=== PATIENT | male | born 1980 ===

== ENCOUNTER 2018-01-22 15:17 | Inpatient (IN) | payer SELFPAY ==
[2018-01-22] MEDS ORDERED: Naloxone HCl 0.4 mg/ml Vial ONE (15:35)
[2018-01-22] MEDS ORDERED: Succinylcholine Chloride 20 MG/ML 10 ml SYRINGE FS ONE (15:39)
[2018-01-22] MEDS ORDERED: Piperacillin/Tazobactam 4.5 GM VIAL ONE (15:59)
[2018-01-22 16:04] LABS: Base Excess-Venous -9.9 mmol/L (0 (+/- 2.5)); Bicarbonate (HCO3v) 15.7 mmol/L (1.0-85.0); CO2 Tension (PvCO2) 32.7 mmHg (41.0-51.0); Calcium, Ionized 1.02 mmol/L (1.12-1.32); Hemoglobin - Calc 10.3 g/dL (12.0-18.0); O2 Tension (PvO2) 96.4 mmHg (35.0-45.0); Potassium 3.2 mmol/L (3.4-4.7); T. Carbon Dioxide 16.7 mmol/L (1.0-85.0); pH (Venous) 7.289 (7.35-7.45); vO2 Saturation-calc 96.7 % (94-98)
[2018-01-22 16:17] LABS: Actual Bicarbonate (HCO3a) 14.3 mEq/L (22-28); Analyzer IN Cardio ER; CO2 Tension 30.3 mmHg (35.0-45.0); Calcium, Ionized 1.03 mmol/L (1.12-1.30); Carboxyhemoglobin (COHb) 6.2 gm% (0.0-3.0); Hemoglobin (Hb) 10.1 g/dL (14.0-18.0); Potassium - ABG Lab 3.72 mmol/L (3.70-5.30); pH, Arterial 7.29 (7.35-7.45)
[2018-01-22 16:18] LABS: O2 Tension (PaO2) 502.3 mmHg (80.0-100.0)
[2018-01-22 16:18] LABS: INR-International Normal Ratio 1.4; PTT 40.1 SEC (22.9-36.1); Prothrombin Time 17.3 SEC (12.0-14.7)
[2018-01-22 16:19] LABS: #Eosinphils 0.2 thou/uL (0.0-0.7); #Lymphocytes 0.8 thou/uL (1.20-3.40); #Monocytes 0.4 thou/uL (0.11-0.59); #Neutrophils 9.4 thou/uL (1.40-6.50); %Basophils 0.3 % (0.0-1.0); %Eosinophils 1.7 % (0.0-10.0); %Lymphocytes 7.7 % (21.0-51.0); %Monocytes 3.3 % (0.0-10.0); Hemoglobin 9.4 g/dL (14.0-18.0); Mean Corpuscular HGB CONC 28.9 g/dL (32.0-36.0); Mean Corpuscular Hemoglobin 23.3 pg (27.0-31.0); Mean Corpuscular Volume 80.4 fL (78.0-98.0); Mean Platelet Volume 7.1 fL (7.4-10.4); Platelet Count 392 thou/uL (130-400); RBC Distribution Width 16.6 % (11.5-14.5); Red Blood Cell (RBC) Count 4.05 mill/uL (4.70-6.10); White Blood Cell (WBC) Count 10.8 thou/uL (4.8-10.8)
[2018-01-22 16:19] LABS: ALV-art Gradient -183.675 (0-20); Puncture Site LR
--- NOTE | 2018-01-22 16:22 | RAD ---
PORTABLE CHEST: Date: 01/22/18 PROVIDED CLINICAL HISTORY: Altered mental status. FINDINGS: No comparisons. Cardiac and mediastinal silhouette is within normal limits. Endotracheal tube is noted, tip of which projects in the region of the thoracic inlet. Enteric catheter is present, the tip of which is below the diaphragm. No focal consolidation is evident. The supine nature of the study limits sensitivity f or detection of pleural fluid and pneumothorax without evidence for such. IMPRESSION: No evidence for an acute cardiopulmonary process. POS: [facility]
[2018-01-22 16:24] LABS: Acetaminophen Less than 6.0 mcg/mL (10.0-30.0); Alcohol Less than 10 mg/dL (Less than 10); Magnesium 1.3 mg/dL (1.6-2.6); Phosphorus 4.7 mg/dL (2.3-4.7); Salicylate Less than 8.0 mg/dL (15.0-30.0)
[2018-01-22 16:25] LABS: Anion Gap 13 mmol/L (10-20); BUN (Urea Nitrogen) 43 mg/dL (8.9-20.6); Calc. Creatinine Clearance 0 mL/min (70-130); Carbon Dioxide 15 mmol/L (22-29); Chloride 109 mmol/L (98-107); Estimated GFR-MDRD 22; Potassium 3.5 mmol/L (3.5-5.1); Sodium 133 mmol/L (136-145)
[2018-01-22 16:26] LABS: ALT (SGPT) 18 U/L (8-55); AST (SGOT) 23 U/L (5-34); Albumin 2.3 g/dL (3.5-5.0); Alkaline Phosphatase 79 U/L (40-150); Bilirubin, Total 0.4 mg/dL (0.2-1.2); Globulin 2.4 g/dL (2.4-3.5); Glucose 127 mg/dL (70-105); Lipase 6 U/L (8-78); Protein, Total 4.7 g/dL (6.0-8.3)
[2018-01-22] MEDS ORDERED: fentaNYL Citrate/PF 2,000 MCG in Sodium Chloride 0.9% 60 ML IV SCH ×2 (16:27→18:26)
[2018-01-22 16:29] LABS: Troponin I Less than 0.010 ng/mL (< 0.028)
[2018-01-22 16:31] LABS: CKMB 20.5 ng/mL (0-6.6)
[2018-01-22] MEDS ORDERED: Midazolam HCl 5 mg/ml Vial ONE (16:33)
[2018-01-22] MEDS ORDERED: Fentanyl 100 MCG/2 ML VIAL ONE (16:36)
[2018-01-22 16:37] LABS: Anisocytosis SLIGHT = 6-15 cells (100X) (0-5/hpf); Burr Cells SLIGHT = 2-5 cells (100X) (0-1/hpf); Hypochromia SLIGHT = 6-15 cells (100X) (0-5/hpf); MDiff Complete? YES; Ovalocytes SLIGHT = 2-5 cells (100X) (0-1/hpf); PLT Morphology Comment Appears Adequate; Poikilocytosis SLIGHT = 6-15 cells (100X) (0-5/hpf); Polychromasia SLIGHT = 2-3 cells (100X) (0-2/hpf); Schistocytes SLIGHT = 2-5 cells (100X) (0-1/hpf)
[2018-01-22] MEDS ORDERED: Vancomycin HCl 1 GM in Premix Bag 1 BAG IVPB SCH (16:45)
[2018-01-22 17:00] LABS: Bilirubin Negative (Negative); Blood, Urine Moderate (Negative); Clarity TURBID (Clear); Glucose, Urine (Dipstick) Negative (Negative); Leukocyte Large (Negative); Nitrite Positive (Negative); Protein, Urine (Dipstick) 300 mg/dL (Neg-Trace); Specific Gravity, Urine 1.016 (1.002-1.036); Urobilinogen 0.2 mg/dL (0.2-1.0)
[2018-01-22 17:02] LABS: Bacteria/HPF 3+ HPF (None Seen); Squamous Epithelial 0-3 HPF (0-3)
[2018-01-22 17:07] LABS: Pathc Cast-AUWi Flag 16.45 (0-2.49); Yeast-AUWi Flag 135.9 (0-25.0)
[2018-01-22 17:10] LABS: Amphetamine Not Detected (NotDetected); Barbiturates Screen Not Detected (NotDetected); Benzodiazepine Screen Not Detected (NotDetected); Cocaine Metabolite Screen Not Detected (NotDetected); Medtox Control Line Valid? VALID (VALID); Medtox Reader # READER 4; Methadone Not Detected (NotDetected); Methamphetamine Not Detected (NotDetected); Opiate Screen Not Detected (NotDetected); Oxycodone Screen Not Detected (NotDetected); Phencyclidine (PCP) Not Detected (NotDetected); THC/Cannabinoid Screen Detected (NotDetected); Tricyclic Screen Not Detected (NotDetected)
[2018-01-22 17:18] LABS: Hyaline Casts/LPF 0-3 HYALINE CAST LPF (0-3 Hyaline); Other Casts/LPF None Seen LPF (0-3 Hyaline)
[2018-01-22] MEDS ORDERED: Atropine Sulfate 1 mg/10 ml Syringe ONE (18:00)
[2018-01-22] MEDS ORDERED: EPINEPHrine 1 MG/10 ML Abboject SYRINGE ONE ×2 (18:00→19:51)
[2018-01-22] MEDS ORDERED: Dextrose 50% Abboject 50 ML SYRINGE ONE (18:00)
[2018-01-22] MEDS ORDERED: CCU Electrolyte Replacement 1 EACH IVPB SCH (18:15)
[2018-01-22] MEDS ORDERED: Sodium Chloride 0.9% 1,000 ML IV SCH ×2 (18:15→21:00)
[2018-01-22] MEDS ORDERED: Norepinephrine 8 MG/0.9% NS 250 ML IVPB PRN (18:15)
[2018-01-22] MEDS ORDERED: Ventilator Sedation Protocol 1 EACH FS SCH (18:15)
[2018-01-22] MEDS ORDERED: CCU Electrolyte Replacement 1 EACH FS SCH (18:15)
[2018-01-22] MEDS ORDERED: Propofol 1,000 MG/100 ML VIAL IV PRN (18:26)
[2018-01-22] MEDS ORDERED: Magnesium 2 GM/NS 0.9% 100 ML 2 GM in Premix Bag 1 BAG IVPB PRN (18:26)
[2018-01-22] MEDS ORDERED: Potassium Chloride 40 MEQ in Sodium Chloride 0.9% 250 ML 250 ML IVPB PRN (18:26)
[2018-01-22] MEDS ORDERED: DISCONTINUE PREVIOUS NARCOTIC PAIN MEDICATIONS AND BENZODIAZEPINES FS SCH (18:26)
[2018-01-22] MEDS ORDERED: Potassium Phosphate 15 MMOL in Sodium Chloride 0.9% 250 ML 250 ML IV PRN (18:26)
[2018-01-22] MEDS ORDERED: Propofol BOLUS 1,000 MG/100 ML VIAL IV PRN (18:26)
[2018-01-22] MEDS ORDERED: Magnesium Oxide 400 MG TAB PO PRN ×2 (18:26)
[2018-01-22] MEDS ORDERED: Lorazepam 2 MG/ML VIAL SLOW IVP PRN (18:26)
[2018-01-22] MEDS ORDERED: Potassium Chloride 40 MEQ in Premix Bag 1 BAG IVPB PRN (18:26)
[2018-01-22] MEDS ORDERED: Fentanyl BOLUS 250 ML IVPB PRN (18:26)
[2018-01-22] MEDS ORDERED: Potassium Phosphate 9 MMOL in Sodium Chloride 0.9% 100 ML IVPB PRN (18:26)
[2018-01-22] MEDS ORDERED: Potassium Chloride 20 MEQ TAB PO PRN (18:26)
[2018-01-22] MEDS ORDERED: CCU ELECTROLYTE REPLACEMENT PROTOCOL FS PRN (18:26)
[2018-01-22] MEDS ORDERED: Potassium Phosphate 12 MMOL in Sodium Chloride 0.9% 250 ML 250 ML IV PRN (18:26)
--- NOTE | 2018-01-22 18:34 | PDOC.FPRHP ---
- History of Present Illness Chief Complaint: altered mental status History of Present Illness: 37 y/o male with h/o paraplegia and mutliple decubitus ulcers, from [place] and recently left AMA from a hospital in [place] after a reported six week stay, had EMS called and refused to go to hospital earlier today, then became altered and EMS was called a second time and brought him. In the ED he was nonresponsive, bradycardic, hypotensive, and decubitus ulcers with maggots were noted along his ischial tuberosities and posterior heel. He was given atropine and epinephrine and intubated. A FC was placed and dillan pus was noted. We were subsequently called he was bradycardic to 30 and hypotensive. A CVC was placed in the right IJ. Atropine was given with no response. Epi was give with good response. He was subsequently stabilized on an epi drip and admitted to the ICU after imaging. The family has been briefly updated and wish him to be full code. History is limited due to his intubation and encephalopathy. - Allergies/Adverse Reactions Allergies Allergy/AdvReac Type Severity Reaction Status Date / Time No Known Drug Allergies Allergy Verified 01/22/18 16:26 - Home Medications Medication Instructions Recorded Confirmed Type Unobtainable 01/22/18 01/22/18 History - History PMHx: h/o Guillian Rice syndrome; p-c malnutrition, otherwise unknown PSHx: colostomy, otherwise unable to obtain FHx: unable to obtain Social: unable to obtain - Vital signs BP: 139/105 HR: 73 RR: 16 Tmax: on chay hugger Pox: 100% Wt: 63 kg - Physical Exam Constitutional: other (intubated and sedated) HEENT: normocephalic and atraumatic Neck: trachea midline, no JVD, no thyromegaly Chest: no-tender to palpation, no lesions Heart: other (anastasiia upon review) Lungs: CTAB, good air movement, no wheezing Abdomen: soft, non-tender, other (colostomy with liquid stool) Musculoskeletal: other (malnourised) Neurological: other (unable to assess d/t above) Skin: other (stage IV sacral decubs to bone with maggots bilateral buttocs, stage III over heel) Heme/Lymphatic: no unusual bruising or bleeding, no purpura, no petechia Psychiatric: other (intubated and sedated) FMR H&P: Results - Labs Result Diagrams: 01/22/18 15:44 01/22/18 15:44 Lab results: WBC 10.8 thou/uL (4.8-10.8) 01/22/18 15:44 Hgb 9.4 g/dL (14.0-18.0) L 01/22/18 15:44 Hct 32.5 % (42.0-52.0) L 01/22/18 15:44 MCV 80.4 fL (78.0-98.0) 01/22/18 15:44 Plt Count 392 thou/uL (130-400) 01/22/18 15:44 Neutrophils % 87.0 % (42.0-75.0) H 01/22/18 15:44 ABG pH 7.29 (7.35-7.45) L 01/22/18 16:15 ABG pCO2 30.3 mmHg (35.0-45.0) L 01/22/18 16:15 ABG pO2 502.3 mmHg (80.0-100.0) H* 01/22/18 16:15 VBG pCO2 32.7 mmHg (41.0-51.0) L 01/22/18 15:47 VBG pO2 96.4 mmHg (35.0-45.0) H 01/22/18 15:47 Sodium 133 mmol/L (136-145) L 01/22/18 15:44 Potassium 3.5 mmol/L (3.5-5.1) 01/22/18 15:44 Chloride 109 mmol/L (98-107) H 01/22/18 15:44 Carbon Dioxide 15 mmol/L (22-29) L 01/22/18 15:44 BUN 43 mg/dL (8.9-20.6) H 01/22/18 15:44 Creatinine 3.12 mg/dL (0.6-1.3) H 01/22/18 15:44 Glucose 127 mg/dL (70-105) H 01/22/18 15:44 Lactic Acid 0.7 mmol/L (0.5-2.2) 01/22/18 15:44 Calcium 7.0 mg/dL (7.8-10.44) L 01/22/18 15:44 Total Bilirubin 0.4 mg/dL (0.2-1.2) 01/22/18 15:44 AST 23 U/L (5-34) 01/22/18 15:44 ALT 18 U/L (8-55) 01/22/18 15:44 Alkaline Phosphatase 79 U/L (40-150) 01/22/18 15:44 CK-MB (CK-2) 20.5 ng/mL (0-6.6) H* 01/22/18 15:44 Serum Total Protein 4.7 g/dL (6.0-8.3) L 01/22/18 15:44 Albumin 2.3 g/dL (3.5-5.0) L 01/22/18 15:44 Lipase 6 U/L (8-78) L 01/22/18 15:44 Urine Ketones Negative mg/dL (Negative) 01/22/18 16:52 Urine Blood Moderate (Negative) H 01/22/18 16:52 Urine Nitrite Positive (Negative) H 01/22/18 16:52 Ur Leukocyte Esterase Large (Negative) H 01/22/18 16:52 Urine RBC 7-10 HPF (0-3) H 01/22/18 16:52 Urine WBC Greater Than 50-TNTC HPF (0-3) H 01/22/18 16:52 Ur Squamous Epith Cells 0-3 HPF (0-3) 01/22/18 16:52 Urine Bacteria 3+ HPF (None Seen) H 01/22/18 16:52 - Radiology Interpretation Other Additional comment: CT of head reviewed by me: no acute intracranial process Abd/pelvis CT reviewed by me: obvious sacral wounds with evidence of bony involvement suspicious for osteomyelitis. No sig free air. Formal read pending. FMR H&P: A/P - Problem List (1) History of Guillain-Rice syndrome Current Visit: Yes Status: Acute Code(s): Z86.69 - PERSONAL HISTORY OF DIS OF THE NERVOUS SYS AND SENSE ORGANS (2) Paraplegia Current Visit: Yes Status: Acute Code(s): G82.20 - PARAPLEGIA, UNSPECIFIED (3) Anemia Current Visit: Yes Status: Acute Code(s): D64.9 - ANEMIA, UNSPECIFIED (4) Complicated urinary tract infection Current Visit: Yes Status: Acute Code(s): N39.0 - URINARY TRACT INFECTION, SITE NOT SPECIFIED (5) Colostomy in place Current Visit: Yes Status: Acute Code(s): Z93.3 - COLOSTOMY STATUS (6) Acute encephalopathy Current Visit: Yes Status: Acute Code(s): G93.40 - ENCEPHALOPATHY, UNSPECIFIED (7) Acute respiratory failure with hypoxia Current Visit: Yes Status: Acute Code(s): J96.01 - ACUTE RESPIRATORY FAILURE WITH HYPOXIA (8) Decubitus ulcer, stage 3 Current Visit: Yes Status: Acute Code(s): L89.93 - PRESSURE ULCER OF UNSPECIFIED SITE, STAGE 3 (9) Stage IV decubitus ulcer Current Visit: Yes Status: Acute Code(s): L89.94 - PRESSURE ULCER OF UNSPECIFIED SITE, STAGE 4 (10) Hypomagnesemia Current Visit: Yes Status: Acute Code(s): E83.42 - HYPOMAGNESEMIA (11) Acute kidney injury Current Visit: Yes Status: Acute Code(s): N17.9 - ACUTE KIDNEY FAILURE, UNSPECIFIED (12) Hyponatremia Current Visit: Yes Status: Acute Code(s): E87.1 - HYPO-OSMOLALITY AND HYPONATREMIA (13) Severe protein-calorie malnutrition Current Visit: Yes Status: Acute Code(s): E43 - UNSPECIFIED SEVERE PROTEIN- CALORIE MALNUTRITION (14) Septic shock Current Visit: Yes Status: Acute Code(s): A41.9 - SEPSIS, UNSPECIFIED ORGANISM; R65.21 - SEVERE SEPSIS WITH SEPTIC SHOCK - Plan Patient with septic shock 2/2 suspected complicated UTI vs infected decubitus ulcers -EGDT, 2 L LR, vanc/zosyn, BC drawn -on epi gtt and stable -pulm consulted -wound care consulted Neuro -vent sedation protocol -daily sedation vacations Resp -lung protective ventilation CV -continue epi gtt, wean levo as able for maps >65 -ICU consulted and will come this evening -if recurrent bradycardia after resuscitation will d/w cardiology FEN/GI -hold on feeds -correct and recheck electrolyte abn (mg, phos) -monitor Na Renal/ -monitor creatinine, no indication for dialysis -avoid nephrotox meds if able -renally dose meds Heme -anemia, will hold on workup as by history strongly suspect ACD ID -vanc/zosyn, renally dose as appropriate, cultures as above Lines -Right IJ CVC placed in sterile fashion in ED -PIV x 2 -FC -ETT Social -I will update family and likely discuss with palliative -dvt/gi ppx -begin feeds in AM, sooner if proves stability, monitor for refeeding syndrome Approximately 75 min of critical care time, excluding procedure FMR H&P: Upper Level - Plan Date/Time: 01/22/18 1830 I, [], have evaluated this patient and agree with findings/plan as outlined by sports internship resident. Pertinent changes/additions are listed here.
[2018-01-22 18:59] LABS: Hemoglobin 10.3 g/dL (14.0-18.0); Mean Corpuscular HGB CONC 30.4 g/dL (32.0-36.0); Mean Corpuscular Hemoglobin 24.1 pg (27.0-31.0); Mean Corpuscular Volume 79.2 fL (78.0-98.0); Mean Platelet Volume 7.1 fL (7.4-10.4); Platelet Count 394 thou/uL (130-400); RBC Distribution Width 16.6 % (11.5-14.5); Red Blood Cell (RBC) Count 4.27 mill/uL (4.70-6.10); White Blood Cell (WBC) Count 13.8 thou/uL (4.8-10.8)
[2018-01-22] MEDS: Lactated Ringer's 1,000 ML IV SCH ×2 (19:08→19:09)
--- NOTE | 2018-01-22 19:12 | RAD ---
CHEST ONE VIEW: 01/22/18 HISTORY: Central line placement. COMPARISON: Earlier exam on the same date. FINDINGS: Tip of a right internal jugular central venous catheter overlies the superior vena cava. Other lines and tubes are unchanged in position. Pulmonary vasculature is slightly more engorged. No evidence of pneumothorax. IMPRESSION: Internal jugular catheter is in good radiographic position. Increasing pulmonary vascular congestion. POS: [facility]
[2018-01-22 19:19] LABS: Acanthocytes SLIGHT = 1-5 cells (100X) (None Seen); Anisocytosis SLIGHT = 6-15 cells (100X) (0-5/hpf); Band 40 % (5-11); Burr Cells SLIGHT = 2-5 cells (100X) (0-1/hpf); Eosinophils 1 % (0-10); Hypochromia SLIGHT = 6-15 cells (100X) (0-5/hpf); Lymphocytes 6 % (21-51); MDiff Complete? YES; Metamyelocyte 3 % (0-0); Monocytes 4 % (0-10); Neutrophil 45 % (42-75); PLT Morphology Comment Appears Adequate; Poikilocytosis SLIGHT = 6-15 cells (100X) (0-5/hpf); Polychromasia SLIGHT = 2-3 cells (100X) (0-2/hpf); Toxic Granulation SLIGHT
[2018-01-22 19:23] LABS: ALT (SGPT) 38 U/L (8-55); AST (SGOT) 56 U/L (5-34); Albumin 2.4 g/dL (3.5-5.0); Alkaline Phosphatase 85 U/L (40-150); Anion Gap 14 mmol/L (10-20); BUN (Urea Nitrogen) 39 mg/dL (8.9-20.6); Bilirubin, Total 0.9 mg/dL (0.2-1.2); Calc. Creatinine Clearance 0 mL/min (70-130); Calcium 7.8 mg/dL (7.8-10.44); Carbon Dioxide 17 mmol/L (22-29); Chloride 107 mmol/L (98-107); Estimated GFR-MDRD 26; Globulin 3.1 g/dL (2.4-3.5); Glucose 214 mg/dL (70-105); Potassium 3.1 mmol/L (3.5-5.1); Protein, Total 5.5 g/dL (6.0-8.3); Sodium 135 mmol/L (136-145)
--- NOTE | 2018-01-22 19:25 | CT ---
CT HEAD NONCONTRAST: 01/22/18 HISTORY: Altered mental status. FINDINGS: No comparison. There is no evidence of acute intracranial hemorrhage or infarct. Ventricles appear normal in size, s hape and position. There is no mass effect or shift of midline structures. The visualized paranasal s inuses remain well aerated. No acute intracranial abnormalities are demonstrated. POS: [facility]
--- NOTE | 2018-01-22 19:28 | PDOC.EVN ---
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 She states he has been hospitalized for >6 weeks in at least 3 hospital for treatment of his wounds. He had the colostomy tube placed because he was having diarrhea which affected the wounds. Patient left AMA from [place] a few weeks ago because he was "tired of being in the hospital." Mother states she thinks patient may be getting tired of spending so much time in the hospitals and may elect for comfort cares as opposed to aggressive measures. Patient has been his own MPOA mother states. They have not had discussions about code status. Patient is FULL code. Palliative care team is consulted to assist with ascertaining goals of care, if all goes well anticipate vent may be weaned tomorrow and goals of care can be discussed with patient. <Fidel Manuel - Last Filed: 01/22/18 19:24> Attending Addendum - Attending Addendum Date/Time: 01/22/182032 I was present for the family discussion. <Darrell Burton - Last Filed: 01/22/18 20:33>
--- NOTE | 2018-01-22 19:31 | CT ---
CT ABDOMEN AND PELVIS NONCONTRAST: 01/22/18 HISTORY: Flank pain. FINDINGS: Very mild distention of each renal collecting system and ureter without stone evident. Urinary bladde r contains a Nolan catheter but is incompletely decompressed. Lack of contrast limits evaluation for other abnormalities. Atelectasis at each lung base. Nasogastri c tube within the stomach. Left lower quadrant ostomy. Minimal free fluid in the abdomen. Dystrophic calcifications at each medial gluteal level. IMPRESSION: Very mild bilateral hydroureteronephrosis without obstructing cause evident. This may be related to c hronic reflux. No stones are visible. Nolan catheter in place without complete decompression of the urinary bladder. POS: [facility]
[2018-01-22] MEDS: Famotidine/PF 20 mg/2ml Vial SLOW IVP SCH (20:23)
[2018-01-22] MEDS ORDERED: Calcium Gluc 4.6 MEQ/10 ML (100 MG/ML) SLOW IVP SCH (20:30)
[2018-01-22] MEDS ORDERED: Heparin 10,000 UNITS/ 10 ML VIAL ONE (20:55)
[2018-01-22] MEDS ORDERED: Magnesium Sulfate 4 GM in Sodium Chloride 0.9% 250 ML 250 ML IVPB SCH (21:00)
[2018-01-22] MEDS ORDERED: Potassium Chloride 40 MEQ in Premix Bag 1 BAG IVPB SCH (21:00)
[2018-01-22] MEDS: Piperacillin/Tazobactam 3.375 GM in Sodium Chloride 0.9% 100 ML IVPB SCH (23:47)
--- NOTE | 2018-01-23 00:07 | CON ---
DATE OF CONSULTATION: 01/22/2018 SERVICE: Pulmonary Medicine. REASON FOR CONSULTATION: Septic shock. HISTORY OF PRESENT ILLNESS: Patient is a 37-year-old white male with past medical history significan t for horrendous protein-calorie malnutrition, and debility. He is bedbound because of a GBS. He ne mani got recovery of his lower extremities. Apparently, he spends all of his time in bed. He has sac ral decubitus ulcer down to the bone. This was present on admission. Ultimately, he has had multipl e 6+ week hospital stays in three different facilities. This is all associated with complications of being in his current condition. On this occasion, he was noted to be increasingly confused. He was brought to the emergency department by his family members. The Nolan catheter was exchanged. A fra nk pus drained out of the Nolan catheter. The patient appeared to have some difficulty with breathin g. As such, he was intubated. Shortly following intubation, he had some bradyarrhythmia events. He was put on epinephrine, and a little bit of Levophed. Since then, has been perfectly stable. He ca n provide any additional elements of the history because he is requiring mechanical ventilation and g entle sedation in order to remain comfortable. PAST MEDICAL HISTORY: 1. Guillain-Zanoni syndrome with hemiplegia/paresis. 2. Protein-calorie malnutrition, severe. PAST SURGICAL HISTORY: Colostomy. FAMILY HISTORY: Unknown. SOCIAL HISTORY: Unknown. ALLERGIES: No known drug allergies. MEDICATIONS: List of his inpatient medications were reviewed. Multiple updates were made. REVIEW OF SYSTEMS: This cannot be obtained, as the patient is currently intubated and sedated. PHYSICAL EXAMINATION: VITAL SIGNS: Afebrile, pulse 72, blood pressure 130/95, respirations 20, saturation 100% on 21% FiO2 and a PEEP of 5. GENERAL: Patient is intubated and sedated. HEENT: Normocephalic, atraumatic. Sclerae white, conjunctivae pink. Oral and nasal mucosa is moist without lesions. LUNGS: Excellent air entry. There is no prolonged expiratory phase, wheezing, rhonchi, or crackles present. HEART: Normal rate, regular. ABDOMEN: Soft. No tenderness to palpation. There are bowel sounds, which are hypoactive. There is no rebound or guarding noted. GENITOURINARY: Nolan catheter in place. MUSCULOSKELETAL: No cyanosis or clubbing. EXTREMITIES: He has no pitting in the bilateral lower extremities. LABORATORY DATA: WBC 13.8 and up trending, hemoglobin 10.3, platelets 394,000. Band count is 40% on top of 45% neutrophils. INR 1.4. PH 7.29, pCO2 of 30, pO2 of 502. He was on 50% FiO2 at that time . Creatinine 2.73 and down trending, BUN 39, bicarbonate 17 and improving, potassium 3.1, sodium 135 . Ionized calcium 1.02, magnesium 1.3, phosphorus 4.7. Liver function studies are essentially unrem arkable except for an albumin of 2.2. Troponin is negative x1. Urinalysis is consistent with dillan pyuria. Urine drug screen is positive for cannabinoids, but otherwise unremarkable. Alcohol, acetam inophen, and salicylate are also negative. IMAGIN. Chest x-ray demonstrates right-sided IJ central venous catheter is in good position radiographica lly. Pulmonary vascular congestion is noted. 2. CT of the brain demonstrates no acute intracranial abnormality. 3. CT of the abdomen and pelvis is little limited, because there is no contrast. There is atelectas is and minimal bilateral pleural effusions in the bibasilar region. Minimal hydronephrosis is noted without any air. This is bilateral and no obstruction is evident. Nolan catheter is in place, but t here is not a complete decompression of the urinary bladder at this time. ASSESSMENT: 1. Septic shock. 2. Urinary tract infection. 3. Stage 4 decubitus ulcer, present on admission. 4. Acute kidney injury. 5. Hypomagnesemia. 6. Hypocalcemia. 7. Hypokalemia. DISCUSSION AND PLAN: We will continue empiric antibiotics including vancomycin, Zosyn, covering both skin, and curt. Potassium, calcium, and magnesium will be replaced. We will titrate away the p ressors if tolerated in order to maintain a blood pressure at MAP of 65. It appears that his kidney injury is improving dramatically. He has fantastic urine output at this point, there is no evidence of any end-organ damage except for his altered mentation. He has been in three separate hospitals an d his mom is telling us that he would prefer to be passing on at this time. That being said, he is q uite young and otherwise healthy. We hope to turn the sepsis profile around very quickly. Hopefully , we will be able to have a good conversation with patient about what his goals of care of moving for oseguera. In doing so, we will have to verify that he does not suffer with a severe depression. CRITICAL CARE TIME: 30 minutes.
[2018-01-23 03:47] LABS: Band 47 % (5-11); Eosinophils 3 % (0-10); Hemoglobin 9.6 g/dL (14.0-18.0); Lymphocytes 7 % (21-51); MDiff Complete? YES; Mean Corpuscular HGB CONC 30.4 g/dL (32.0-36.0); Neutrophil 43 % (42-75); PLT Morphology Comment Appears Increased; Platelet Count 510 thou/uL (130-400); RBC Distribution Width 16.5 % (11.5-14.5); Red Blood Cell (RBC) Count 4.01 mill/uL (4.70-6.10); White Blood Cell (WBC) Count 13.4 thou/uL (4.8-10.8)
[2018-01-23 04:03] LABS: ALT (SGPT) 41 U/L (8-55); AST (SGOT) 40 U/L (5-34); Albumin 2.4 g/dL (3.5-5.0); Alkaline Phosphatase 83 U/L (40-150); Anion Gap 12 mmol/L (10-20); BUN (Urea Nitrogen) 33 mg/dL (8.9-20.6); Bilirubin, Total 0.2 mg/dL (0.2-1.2); Calc. Creatinine Clearance 50 mL/min (70-130); Calcium 8.9 mg/dL (7.8-10.44); Carbon Dioxide 21 mmol/L (22-29); Chloride 112 mmol/L (98-107); Estimated GFR-MDRD 41; Globulin 3.1 g/dL (2.4-3.5); Glucose 85 mg/dL (70-105); Potassium 4.2 mmol/L (3.5-5.1); Protein, Total 5.5 g/dL (6.0-8.3); Sodium 141 mmol/L (136-145)
[2018-01-23] MEDS ORDERED: Vancomycin HCl 1 GM in Premix Bag 1 BAG IVPB SCH (05:00)
[2018-01-23] MEDS: Piperacillin/Tazobactam 3.375 GM in Sodium Chloride 0.9% 100 ML IVPB SCH ×3 (05:04→17:09)
--- NOTE | 2018-01-23 08:51 | PDOC.OP ---
Operative Note - Operative Note Operative Note: INDICATION: septic shock PROCEDURE PLANT OPERATIONS WORKER: Fidel Manuel MD ATTENDING PHYSICIAN: Darrell Burton In Attendance for entirety of procedure CONSENT: Emergent Consent. PROCEDURE SUMMARY: . A time out was performed. My hands were washed immediately prior to the procedure. I wore a surgical cap, mask with protective eyewear, full gown and sterile gloves throughout the procedure. RIGHT chest region was prepped using chlorhexidine scrub and draped in sterile fashion using a three quarter sheet drape. The medial and lateral heads of the sternocleidomastoid muscle were identified as was the carotid pulse. The Internal Jugular vein was identified using the ultrasound. Anesthesia was achieved over the vein using 1% lidocaine. Using real-time out of plane guidance, the introducer needle was inserted into the Internal Jugular vein under direct ultrasound visualization. Venous blood was withdrawn. The syringe was removed and a guidewire was advanced into the introducer needle. The guidewire was visualized in the Internal Jugular Vein by ultrasound. A small incision was made at the skin surface with a scalpel and the introducer needle was exchanged for a dilator over the guidewire. After appropriate dilation was obtained, the dilator was exchanged over the wire for a triple lumen central venous catheter. The wire was removed and the catheter was sutured in place at 14 cm. A sterile sorbaview shield was placed over the catheter at the insertion site. The patient tolerated the procedure without any hemodynamic compromise. At time of procedure completion, all ports aspirated and flushed properly. Post-procedure chest x-ray is showed proper placement. Estimated blood loss is 10ml. <Fidel Manuel - Last Filed: 01/23/18 08:49> Attending Addendum - Attending Addendum Date/Time: 01/23/18 1418 I was present for the entirety of the procedure <Darrell Burton - Last Filed: 01/23/18 14:18>
[2018-01-23] MEDS: Vancomycin HCl 1 GM in Premix Bag 1 BAG IVPB SCH ×2 (09:04→20:37)
[2018-01-23 09:38] LABS: Magnesium 2.5 mg/dL (1.6-2.6); Phosphorus 4.7 mg/dL (2.3-4.7)
--- NOTE | 2018-01-23 09:41 | PDOC.FM ---
- Subjective Subjective: Pt remains on sedation and ventilator support this AM. He is also requiring pressor support. Pt family in the room this am state he has been hospitalized numerous times for similar symptoms. He has left AMA from his previous hospitalization in [place] approx 3 weeks ago. The family is from [place]; however, pt has a child down in [place] and he decided to leave town without informing his family and see his child. - Objective Vital Signs & Weight: Vital Signs (12 hours) Temp Pulse Resp BP 01/23/18 08:00 98.8 F 13 01/23/18 07:00 98.8 F 91 114/60 01/23/18 06:00 13 01/23/18 04:00 13 01/23/18 03:00 98.0 F 01/23/18 02:00 13 01/23/18 00:00 13 01/22/18 23:00 98.1 F 01/22/18 22:00 13 Weight Weight 64.7 kg Most Recent Monitor Data Heart Rate from ECG 88 NIBP 119/67 NIBP BP-Mean 84 Respiration from ECG 21 SpO2 100 I&O: 01/22/18 01/23/18 01/24/18 06:59 06:59 06:59 Intake Total 3187 Output Total 3650 240 Balance -463 -240 Result Diagrams: 01/23/18 03:15 01/23/18 03:15 <Fantasma Rosenthal - Last Filed: 01/23/18 10:47> - Objective Vital Signs & Weight: Vital Signs (12 hours) Temp Pulse Resp BP Pulse Ox 01/23/18 10:44 93 110/65 01/23/18 08:00 98.8 F 13 100 01/23/18 07:00 98.8 F 91 114/60 01/23/18 06:00 13 01/23/18 04:00 13 01/23/18 03:00 98.0 F 01/23/18 02:00 13 01/23/18 00:00 13 Weight Admit Weight 64.7 kg Weight 64.7 kg Most Recent Monitor Data Heart Rate from ECG 93 NIBP 110/58 NIBP BP-Mean 75 Respiration from ECG 18 SpO2 100 I&O: 01/22/18 01/23/18 01/24/18 06:59 06:59 06:59 Intake Total 3187 0 Output Total 3650 350 Balance -463 -350 Result Diagrams: 01/23/18 03:15 01/23/18 03:15 <Marc Wilson - Last Filed: 01/23/18 12:01> Phys Exam - Physical Examination Sedated, on ventilator HEENT: PERRLA, sclera anicteric Neck: no nodes, no JVD Respiratory: no wheezing, no rales, no rhonchi, clear to auscultation bilateral Cardiovascular: RRR, no significant murmur, no rub Gastrointestinal: soft, non-tender, no distention, positive bowel sounds Musculoskeletal: pulses present, edema present sedated Skin: normal turgor, cap refill <2 seconds <Fantasma Rosenthal - Last Filed: 01/23/18 10:47> Dx/Plan (1) Septic shock Code(s): A41.9 - SEPSIS, UNSPECIFIED ORGANISM; R65.21 - SEVERE SEPSIS WITH SEPTIC SHOCK Status: Acute (2) Complicated urinary tract infection Code(s): N39.0 - URINARY TRACT INFECTION, SITE NOT SPECIFIED Status: Acute (3) Stage IV decubitus ulcer Code(s): L89.94 - PRESSURE ULCER OF UNSPECIFIED SITE, STAGE 4 Status: Acute (4) Acute kidney injury Code(s): N17.9 - ACUTE KIDNEY FAILURE, UNSPECIFIED Status: Acute (5) Acute respiratory failure with hypoxia Code(s): J96.01 - ACUTE RESPIRATORY FAILURE WITH HYPOXIA Status: Acute (6) Anemia Code(s): D64.9 - ANEMIA, UNSPECIFIED Status: Acute (7) History of Guillain-Lyburn syndrome Code(s): Z86.69 - PERSONAL HISTORY OF DIS OF THE NERVOUS SYS AND SENSE ORGANS Status: Acute (8) Paraplegia Code(s): G82.20 - PARAPLEGIA, UNSPECIFIED Status: Acute - Plan Plan: 1) Septic shock - pt still requiring levo gtt - wean and maintain MAP >65 - cont vanc zosyn - guillermina 2/2 UTI, cultures pending - Stage 4 sacral decub ulcers present on admission, wound care consulted 2) Complicated UTI - continue pressor support and broad sepctrum abx - cultures pending 3) Stage 4 sacral decub - wound care consulted - consider gen surg consult - discuss goals of care when pt able to wean from vent 4) KARISSA: -guillermina 2/2 septic shock vs mild urinary retention - IVF and broad spectrum ABX - monitor and trend 5) Anemia: normocytic: - guillermina 2/2 chronic disease 6) Paraplegia 2/2 gillain barre - neglected sarcral and ischial wounds - APS called from ED - cont wound care and broad spectrum ABX Dispo: Critical, still requiring pressor support and currently being weaned off mechanical ventilation. Cont CCU care. <Fantasma Rosenthal - Last Filed: 01/23/18 10:47> Attending Addendum - Attending Addendum Date/Time: 01/23/18 2959 I personally evaluated the patient and discussed the management with Dr. Rosenthal I agree with the History, Examination, Assessment and Plan documented above with any addition or exceptions noted below. Patient in critical status probable urosepsis. Daughter and Mother at Bedside aware of status and care plan. Will await for increased patient responsiveness and extubation concern he has left AMA multiple times in the past. <Marc Wilson - Last Filed: 01/23/18 12:01>
--- NOTE | 2018-01-23 15:48 | PRG ---
DATE OF SERVICE: 01/23/2018 SERVICE: Pulmonary Medicine. INTERVAL HISTORY: The patient is doing great from a respiratory standpoint. He has been weaned down to 21% FiO2 and a PEEP of 5. He is on minimal support off the ventilator. Both Levophed and epinephrine has been weaned off overnight. Otherwise, there has been no interval change to his condition. Mentation ashby, he has been off sedation for a couple of hours, but he is slow to come around. He is starting to follow some simple commands, however. PHYSICAL EXAMINATION: VITAL SIGNS: Afebrile, pulse 116, blood pressure 99/67, respirations 20, saturation 94% on 4 liters nasal cannula. GENERAL: The patient is awake, alert, no apparent distress. LUNGS: Decent air entry. There is no prolonged expiratory phase or wheezing. HEART: Normal rate, regular. ABDOMEN: Soft, nontender, nondistended. Bowel sounds are positive. MUSCULOSKELETAL: No cyanosis or clubbing. There is no pitting in the bilateral lower extremities. NEUROLOGIC: Grossly nonfocal. LABORATORY DATA: WBC 13.4, hemoglobin 9.6, platelets 510,000. Band count is 47 %. Creatinine continues to improve to 1.87, BUN 33. Basic metabolic profile is otherwise unremarkable. His sodium and chloride are trending upward. Magnesium and phosphorus fall within the normal limits. Liver function studies are essentially unremarkable. Cannabinoids are positive. Outside of that, urine drug screen is negative. Blood cultures x2 remain negative. ASSESSMENT: 1. Septic shock, resolved. 2. Urinary tract infection. 3. Stage IV decubitus ulcer, present on admission, with maggots and foul smell emanating from that area. 4. Acute kidney injury, resolving. DISCUSSION AND PLAN: We will continue our empiric antibiotics. Once the patient meets criteria, spontaneous breathing trial will be performed. If he meets criteria, extubation will be considered. I would like to have a conversation with this patient about how aggressive he would like to be moving forward. The patient's mom is telling me that at this point in his life, he would prefer to proceed with palliative care and/or hospice. That being said, if we can listen to the patient, we would prefer to get this from him. Furthermore, with his advanced debility, I would like to make certain that we identify and treat any depression prior to allowing this gentleman to come to this conclusion. Certainly getting well from this point, will require surgeries , Plastic Surgery, and Infectious Disease. Critical care time: 30 minutes. JENNIFER
[2018-01-23] MEDS: Sodium Chloride 0.45% 1,000 ML IV SCH (16:13)
[2018-01-23] MEDS ORDERED: HYDROcodone/Acetaminophen 5/325 mg Tablet PO PRN (16:23)
[2018-01-23] MEDS: Acetaminophen 325 MG TAB PO PRN (20:36)
[2018-01-23] MEDS: Famotidine/PF 20 mg/2ml Vial SLOW IVP SCH (20:37)
[2018-01-23] MEDS: Morphine 2 MG/ML SYRINGE SLOW IVP PRN (20:39)
[2018-01-24] MEDS: Piperacillin/Tazobactam 3.375 GM in Sodium Chloride 0.9% 100 ML IVPB SCH ×4 (01:18→17:49)
[2018-01-24 04:31] LABS: Anion Gap 10 mmol/L (10-20); BUN (Urea Nitrogen) 21 mg/dL (8.9-20.6); Calc. Creatinine Clearance 105 mL/min (70-130); Calcium 8.9 mg/dL (7.8-10.44); Carbon Dioxide 23 mmol/L (22-29); Chloride 112 mmol/L (98-107); Estimated GFR-MDRD Greater than 90; Glucose 73 mg/dL (70-105); Magnesium 1.9 mg/dL (1.6-2.6); Phosphorus 3.3 mg/dL (2.3-4.7); Potassium 3.5 mmol/L (3.5-5.1); Sodium 141 mmol/L (136-145)
[2018-01-24 04:35] LABS: Band 19 % (5-11); Eosinophils 10 % (0-10); Hemoglobin 8.6 g/dL (14.0-18.0); Lymphocytes 13 % (21-51); MDiff Complete? YES; Mean Corpuscular HGB CONC 30.8 g/dL (32.0-36.0); Mean Corpuscular Hemoglobin 24.3 pg (27.0-31.0); Mean Corpuscular Volume 79.1 fL (78.0-98.0); Mean Platelet Volume 7.1 fL (7.4-10.4); Monocytes 4 % (0-10); Neutrophil 53 % (42-75); PLT Morphology Comment Appears Increased; Platelet Count 439 thou/uL (130-400); RBC Distribution Width 16.5 % (11.5-14.5); RBC Morphology Normal; Red Blood Cell (RBC) Count 3.52 mill/uL (4.70-6.10); White Blood Cell (WBC) Count 12.9 thou/uL (4.8-10.8)
[2018-01-24] MEDS: Morphine 2 MG/ML SYRINGE SLOW IVP PRN (05:35)
[2018-01-24] MEDS: Acetaminophen 325 MG TAB PO PRN ×2 (05:41→21:26)
--- NOTE | 2018-01-24 07:42 | PDOC.FM ---
- Subjective Subjective: 37 yo M hospital day 3 for sepsis 2/2 UTI. Pt reports some pain in wound area, otherwise denies cp, sob, nvdc. Spoke with pt regarding code status and he wishes to be full code. He does not seem overtly depressed and reports that he wants to live as long as possible for his daughter. - Objective Vital Signs & Weight: Vital Signs (12 hours) Temp Pulse Ox 01/24/18 04:00 97.9 F 01/24/18 00:00 97.6 F 01/23/18 20:00 100 Weight Admit Weight 64.7 kg Weight 64.7 kg Most Recent Monitor Data Heart Rate from ECG 94 NIBP 115/68 NIBP BP-Mean 83 Respiration from ECG 14 SpO2 100 I&O: 01/23/18 01/24/18 01/25/18 06:59 06:59 06:59 Intake Total 3187 2274 Output Total 3650 1690 Balance -463 584 Result Diagrams: 01/24/18 03:40 01/24/18 03:30 <Fantasma Rosenthal - Last Filed: 01/24/18 07:40> - Objective Vital Signs & Weight: Vital Signs (12 hours) Temp Pulse Resp BP Pulse Ox 01/24/18 11:10 98.0 F 89 16 140/97 H 97 01/24/18 08:00 98 01/24/18 07:21 100 01/24/18 05:00 96 F L 01/24/18 04:00 97.9 F Weight Admit Weight 64.7 kg Weight 67.1 kg Most Recent Monitor Data Heart Rate from ECG 99 NIBP 123/84 NIBP BP-Mean 97 Respiration from ECG 16 SpO2 100 I&O: 01/23/18 01/24/18 01/25/18 06:59 06:59 06:59 Intake Total 3187 3904 225 Output Total 3650 1830 70 Balance -463 2074 155 Result Diagrams: 01/24/18 03:40 01/24/18 03:30 <Marc Wilson - Last Filed: 01/24/18 13:01> Phys Exam - Physical Examination Constitutional: NAD HEENT: PERRLA, moist MMs, sclera anicteric Neck: no nodes, no JVD Respiratory: no wheezing, no rales, no rhonchi, clear to auscultation bilateral Cardiovascular: RRR, no significant murmur, no rub Gastrointestinal: soft, non-tender, no distention, positive bowel sounds Musculoskeletal: pulses present, edema present paralysis from waist down Psychiatric: normal affect Deviation from normal: stage 4 sacral wound lower back <Fantasma Rosenthal - Last Filed: 01/24/18 07:40> Dx/Plan (1) Septic shock Code(s): A41.9 - SEPSIS, UNSPECIFIED ORGANISM; R65.21 - SEVERE SEPSIS WITH SEPTIC SHOCK Status: Acute (2) Complicated urinary tract infection Code(s): N39.0 - URINARY TRACT INFECTION, SITE NOT SPECIFIED Status: Acute (3) Stage IV decubitus ulcer Code(s): L89.94 - PRESSURE ULCER OF UNSPECIFIED SITE, STAGE 4 Status: Acute (4) Acute kidney injury Code(s): N17.9 - ACUTE KIDNEY FAILURE, UNSPECIFIED Status: Acute (5) Acute respiratory failure with hypoxia Code(s): J96.01 - ACUTE RESPIRATORY FAILURE WITH HYPOXIA Status: Acute (6) Anemia Code(s): D64.9 - ANEMIA, UNSPECIFIED Status: Acute (7) History of Guillain-[place] syndrome Code(s): Z86.69 - PERSONAL HISTORY OF DIS OF THE NERVOUS SYS AND SENSE ORGANS Status: Acute (8) Paraplegia Code(s): G82.20 - PARAPLEGIA, UNSPECIFIED Status: Acute - Plan Plan: 1) Septic shock, resolved - weaned off pressors. 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 Continue current abx, ok for transfer to medical floor. <Fantasma Rosenthal - Last Filed: 01/24/18 07:40> Attending Addendum - Attending Addendum Date/Time: 01/24/18 6329 I personally evaluated the patient and discussed the management with Dr. Rosenthal I agree with the History, Examination, Assessment and Plan documented above with any addition or exceptions noted below. Patient with acute delirium during rounds with visual hallucination and delusional thought process concern with PmHx mental illness will evaluate for underlying etiology. Note PMHX notable substance abuse no fever no chills. <Marc Wilson - Last Filed: 01/24/18 13:01>
[2018-01-24] MEDS: Sodium Chloride 0.45% 1,000 ML IV SCH ×2 (07:47→17:51)
[2018-01-24 08:52] LABS: Vancomycin, Trough 26.6 ug/mL
[2018-01-24] MEDS: Vancomycin HCl 1 GM in Premix Bag 1 BAG IVPB SCH ×2 (09:00→21:18)
--- NOTE | 2018-01-24 09:44 | PRG ---
DATE OF SERVICE: 01/24/2018 CHEST: Reveals decreased breath sounds without any wheezing. CARDIAC: Normal S1, S2. No gallops. ABDOMEN: Soft, no masses. IMPRESSION: Status post sepsis, urinary tract infection, stage IV decubitus, renal failure, resolvin g. PLAN: He will be transferred to an unmonitored bed. Continue PT. Continue . Continue antibiot ics.
[2018-01-24] MEDS ORDERED: Haloperidol Lactate 5 MG/ML VIAL SLOW IVP PRN (11:56)
--- NOTE | 2018-01-24 13:35 | CT ---
HEAD CT NONCONTRAST: INDICATION: Altered mental status. FINDINGS: No intracranial hemorrhage, mass effect, or midline shift. There is multifocal white matter hypoatte nuation bilaterally, which has progressed from recent exam, 01/22/2018. FINDINGS: Multifocal, progressive deep white matter hypodensities indicating areas of recent/acute ischemia. R ecommend brain MRI as followup for further evaluation. POS: [facility]
[2018-01-24] MEDS: Famotidine/PF 20 mg/2ml Vial SLOW IVP SCH (21:16)
--- NOTE | 2018-01-24 21:27 | PDOC.EVN ---
Event Note - Event Note Event Note: Pt transferred to stroke in e of recent CT brain findings. Pt in room A7 as that is currently stroke unit due to traditional unit flooding. Pt complained of pain in bilateral upper abdominal quadrants/lower chest region. Pt has encephalopathy and offered two different histories of pain when interviewed. Onset being 10am in one but later saying in the conversation that it started at 1pm. Pt reports it is severe and sharp in nature with no insighting events. No radiation to the back. no nausea/vomiting. PO toleration good with lunch and dinner. Pt paranoid speaking of the possibility of medical staff lying to him about the existence of his pain and his getting dinner. O- Pt comfortably resting, cardiopulmonary exam wnl, EKG showed NSR. On abdominal exam pt reported tendernes to palpation on bilat upper quadrants but with minimally changed affect. A/P- CMP, H/H, lipase
[2018-01-24 22:28] LABS: Hemoglobin 9.6 g/dL (14.0-18.0)
[2018-01-24 22:40] LABS: ALT (SGPT) 36 U/L (8-55); AST (SGOT) 27 U/L (5-34); Albumin 2.6 g/dL (3.5-5.0); Alkaline Phosphatase 90 U/L (40-150); Anion Gap 14 mmol/L (10-20); BUN (Urea Nitrogen) 18 mg/dL (8.9-20.6); Bilirubin, Total 0.4 mg/dL (0.2-1.2); Calc. Creatinine Clearance 109 mL/min (70-130); Calcium 8.8 mg/dL (7.8-10.44); Carbon Dioxide 19 mmol/L (22-29); Chloride 109 mmol/L (98-107); Estimated GFR-MDRD Greater than 90; Globulin 3.2 g/dL (2.4-3.5); Glucose 91 mg/dL (70-105); Lipase 5 U/L (8-78); Potassium 3.9 mmol/L (3.5-5.1); Protein, Total 5.8 g/dL (6.0-8.3); Sodium 138 mmol/L (136-145)
[2018-01-25] MEDS: Piperacillin/Tazobactam 3.375 GM in Sodium Chloride 0.9% 100 ML IVPB SCH ×5 (00:20→23:51)
[2018-01-25 05:34] LABS: Anion Gap 15 mmol/L (10-20); BUN (Urea Nitrogen) 19 mg/dL (8.9-20.6); Calc. Creatinine Clearance 112 mL/min (70-130); Calcium 8.8 mg/dL (7.8-10.44); Carbon Dioxide 19 mmol/L (22-29); Chloride 109 mmol/L (98-107); Estimated GFR-MDRD Greater than 90; Glucose 72 mg/dL (70-105); Potassium 3.9 mmol/L (3.5-5.1); Sodium 139 mmol/L (136-145)
[2018-01-25 05:39] LABS: Band 10 % (5-11); Eosinophils 2 % (0-10); Hemoglobin 9.4 g/dL (14.0-18.0); Lymphocytes 11 % (21-51); MDiff Complete? YES; Mean Corpuscular HGB CONC 30.4 g/dL (32.0-36.0); Mean Corpuscular Hemoglobin 23.9 pg (27.0-31.0); Mean Corpuscular Volume 78.8 fL (78.0-98.0); Mean Platelet Volume 7.5 fL (7.4-10.4); Metamyelocyte 1 % (0-0); Monocytes 8 % (0-10); Neutrophil 67 % (42-75); PLT Morphology Comment Appears Increased; Platelet Count 475 thou/uL (130-400); Poikilocytosis SLIGHT = 6-15 cells (100X) (0-5/hpf); RBC Distribution Width 16.7 % (11.5-14.5); RBC Morphology Normal; Reactive Lymphocytes 1 % (0-10); Red Blood Cell (RBC) Count 3.91 mill/uL (4.70-6.10); White Blood Cell (WBC) Count 12.7 thou/uL (4.8-10.8)
[2018-01-25] MEDS: Sodium Chloride 0.45% 1,000 ML IV SCH ×2 (06:24→22:18)
[2018-01-25 06:35] LABS: Bilirubin Negative (Negative); Blood, Urine Large (Negative); Clarity CLOUDY (Clear); Glucose, Urine (Dipstick) Negative (Negative); Leukocyte Moderate (Negative); Nitrite Negative (Negative); Protein, Urine (Dipstick) 100 mg/dL (Neg-Trace); Urobilinogen 0.2 mg/dL (0.2-1.0)
[2018-01-25 06:38] LABS: Bacteria/HPF None Seen HPF (None Seen); Hyaline Casts/LPF 0-3 HYALINE CAST LPF (0-3 Hyaline); Pathc Cast-AUWi Flag 0.43 (0-2.49); Squamous Epithelial None Seen HPF (0-3); Yeast-AUWi Flag 106.9 (0-25.0)
[2018-01-25 06:51] LABS: Yeast-All Forms 3+ HPF (None Seen)
--- NOTE | 2018-01-25 08:04 | PDOC.FM ---
- Subjective Subjective: Pt did not sleep overnight and continues to hallucinate and have paranoid delusions. Believes the nursing staff is talking about him and lying to him. He has extremely tangential thought process and is difficult to follow at times. - Objective MAR Reviewed: Yes Vital Signs & Weight: Vital Signs (12 hours) Temp Pulse Resp BP Pulse Ox 01/25/18 04:00 97.8 F 68 16 149/91 H 97 01/25/18 00:06 98.2 F 69 18 155/98 H 97 01/24/18 21:00 98.2 F 67 18 143/102 H 96 01/24/18 20:40 96 Weight Admit Weight 64.7 kg Weight 70.76 kg Most Recent Monitor Data Heart Rate from ECG 99 NIBP 123/84 NIBP BP-Mean 97 Respiration from ECG 16 SpO2 100 I&O: 01/24/18 01/25/18 01/26/18 06:59 06:59 06:59 Intake Total 3904 1775 900 Output Total 1830 320 640 Balance 2074 1455 260 Result Diagrams: 01/25/18 04:45 01/25/18 04:45 Radiology Reviewed by me: Yes <Fantasma Rosenthal - Last Filed: 01/25/18 08:02> - Objective Vital Signs & Weight: Vital Signs (12 hours) Temp Pulse Resp BP Pulse Ox 01/25/18 12:31 97.6 F 55 L 18 127/85 96 01/25/18 08:46 97 01/25/18 04:00 97.8 F 68 16 149/91 H 97 Weight Admit Weight 64.7 kg Weight 70.76 kg Most Recent Monitor Data Heart Rate from ECG 99 NIBP 123/84 NIBP BP-Mean 97 Respiration from ECG 16 SpO2 100 I&O: 01/24/18 01/25/18 01/26/18 06:59 06:59 06:59 Intake Total 3904 1775 900 Output Total 1830 320 640 Balance 2074 1455 260 Result Diagrams: 01/25/18 04:45 01/25/18 04:45 <Marc Wilson - Last Filed: 01/25/18 13:49> Phys Exam - Physical Examination Constitutional: NAD HEENT: PERRLA Neck: no nodes, no JVD Respiratory: no wheezing, no rales, no rhonchi, clear to auscultation bilateral Cardiovascular: RRR, no significant murmur, no rub Gastrointestinal: soft, no distention mild ttp epigastric Musculoskeletal: pulses present, edema present paralysis of LE Deviation from normal: stage 4 ulcer sacrum <Fantasma Rosenthal - Last Filed: 01/25/18 08:02> Dx/Plan (1) Septic shock Code(s): A41.9 - SEPSIS, UNSPECIFIED ORGANISM; R65.21 - SEVERE SEPSIS WITH SEPTIC SHOCK Status: Acute (2) Complicated urinary tract infection Code(s): N39.0 - URINARY TRACT INFECTION, SITE NOT SPECIFIED Status: Acute (3) Stage IV decubitus ulcer Code(s): L89.94 - PRESSURE ULCER OF UNSPECIFIED SITE, STAGE 4 Status: Acute (4) Acute kidney injury Code(s): N17.9 - ACUTE KIDNEY FAILURE, UNSPECIFIED Status: Acute (5) Acute respiratory failure with hypoxia Code(s): J96.01 - ACUTE RESPIRATORY FAILURE WITH HYPOXIA Status: Acute (6) Anemia Code(s): D64.9 - ANEMIA, UNSPECIFIED Status: Acute (7) History of Guillain-[place] syndrome Code(s): Z86.69 - PERSONAL HISTORY OF DIS OF THE NERVOUS SYS AND SENSE ORGANS Status: Acute (8) Paraplegia Code(s): G82.20 - PARAPLEGIA, UNSPECIFIED Status: Acute (9) Encephalopathy acute Code(s): G93.40 - ENCEPHALOPATHY, UNSPECIFIED Status: Acute - Plan Plan: 1) Septic shock, resolved - resolved 2) Complicated UTI - cont abx 3) Stage 4 sacral decub - wound care consulted - gen surg consult - morphine for breakthrough pain control PRN, will try and avoid narcotics as much as possible to prevent pt vitals from decompensating - stable unchanged 4) KARISSA: - resolved 5) Anemia: - Iron studies today 6) 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 Continue current abx, monitor on stroke. <Fantasma Rosenthal - Last Filed: 01/25/18 08:02> Attending Addendum - Attending Addendum Date/Time: 01/25/18 1493 I personally evaluated the patient and discussed the management with Dr. Rosenthal I agree with the History, Examination, Assessment and Plan documented above with any addition or exceptions noted below. MRI pending patient actively psychotic with unknown baseline for mental illness. To be place on scheduled antipsychotics. <Marc Wilson - Last Filed: 01/25/18 13:49>
--- NOTE | 2018-01-25 09:00 | RAD ---
RIGHT FOREARM 2 VIEWS: HISTORY: Evaluate for internal fixation hardware. COMPARISON: None. FINDINGS: Two views right forearm demonstrate a metallic fusion plate with multiple screws traversing the proxi mal to mid radial diaphysis. No perihardware lucency. Callus formation is noted. There is also a d istal radius fracture with callus formation. Mild angulation of the bone is noted distally. IMPRESSION: 1. Uncomplicated internal fixation hardware. Remote fractures involving the radius are noted. 2. No acute fractures. POS: [facility]
[2018-01-25] MEDS: Vancomycin HCl 1 GM in Premix Bag 1 BAG IVPB SCH ×2 (09:47→20:45)
--- NOTE | 2018-01-25 12:27 | PRG ---
DATE OF SERVICE: 01/25/2018 SUBJECTIVE: This morning, he supposed to be the stroke unit bed. He had some kind of mental s tatus changes. CT brain showed some ischemia that appears to me he is at his baseline. OBJECTIVE: VITAL SIGNS: Sats of 97% on room air, respiration 16, temperature 97, blood pressure 149/91. CHEST: Reveals decreased breath sounds, no wheezing. CARDIAC: Normal S1, S2. No gallops. ABDOMEN: Soft, no masses. LABORATORY DATA: White count 12,000, H&H is 9 and 30, platelet count 475. IMPRESSION: 1. Unknown neurological event. Awaiting MRI. 2. Extensive decubitus ulcer. 3. Respiratory failure, resolved. 4. Renal failure, resolved. PLAN: Continue supportive care and PT.
[2018-01-25] MEDS ORDERED: risperiDONE 1 MG TAB PO SCH ×2 (13:10→13:12)
--- NOTE | 2018-01-25 13:21 | MRI ---
BRAIN MRI WITH AND WITHOUT CONTRAST: CLINICAL HISTORY: Altered mental status. Abnormalities on preceding CT. FINDINGS: There is motion artifact which limits evaluation. The ventricular system is normal in size. There a re multifocal abnormal white matter signal intensities of the cerebral hemispheres correlating to hyp odensities on preceding CT exam. There is no restricted diffusion, hemorrhagic susceptibility, or pa thologic intraaxial enhancement. Motion artifact limits assessment of the skull base flow voids. IMPRESSION: Multifocal white matter signal abnormalities, nonspecific. This could be on the basis of a demyelina ting process, vasculitis/vasculopathy, or infectious/inflammatory etiologies. Correlation with lumba r puncture may prove useful for further analysis. POS: [facility]
[2018-01-25 20:36] LABS: Vancomycin, Trough 21.2 ug/mL
[2018-01-25] MEDS: Famotidine/PF 20 mg/2ml Vial SLOW IVP SCH (20:45)
[2018-01-25] MEDS: risperiDONE 1 MG TAB PO SCH (20:46)
[2018-01-25] MEDS: Divalproex Sodium 250 MG (DR) TAB PO SCH (20:46)
[2018-01-26 05:48] LABS: Anion Gap 13 mmol/L (10-20); BUN (Urea Nitrogen) 11 mg/dL (8.9-20.6); Calc. Creatinine Clearance 159 mL/min (70-130); Calcium 8.1 mg/dL (7.8-10.44); Carbon Dioxide 19 mmol/L (22-29); Chloride 109 mmol/L (98-107); Estimated GFR-MDRD Greater than 90; Glucose 90 mg/dL (70-105); Potassium 3.1 mmol/L (3.5-5.1); Sodium 138 mmol/L (136-145)
[2018-01-26 05:57] LABS: Eosinophils 5 % (0-10); Hypochromia SLIGHT = 6-15 cells (100X) (0-5/hpf); Lymphocytes 24 % (21-51); MDiff Complete? YES; Mean Corpuscular HGB CONC 30.4 g/dL (32.0-36.0); Mean Corpuscular Hemoglobin 23.7 pg (27.0-31.0); Mean Corpuscular Volume 77.9 fL (78.0-98.0); Mean Platelet Volume 7.6 fL (7.4-10.4); Monocytes 7 % (0-10); Neutrophil 64 % (42-75); PLT Morphology Comment Appears Increased; Platelet Count 501 thou/uL (130-400); Polychromasia SLIGHT = 2-3 cells (100X) (0-2/hpf); RBC Distribution Width 16.8 % (11.5-14.5); Red Blood Cell (RBC) Count 3.79 mill/uL (4.70-6.10); White Blood Cell (WBC) Count 13.1 thou/uL (4.8-10.8)
[2018-01-26] MEDS: Piperacillin/Tazobactam 3.375 GM in Sodium Chloride 0.9% 100 ML IVPB SCH ×4 (06:08→23:51)
[2018-01-26] MEDS: Divalproex Sodium 250 MG (DR) TAB PO SCH ×2 (08:43→20:15)
[2018-01-26] MEDS: Vancomycin HCl 1 GM in Premix Bag 1 BAG IVPB SCH ×2 (08:43→20:18)
[2018-01-26] MEDS: risperiDONE 1 MG TAB PO SCH ×2 (08:58→20:17)
--- NOTE | 2018-01-26 09:08 | PDOC.FM ---
- Subjective Subjective: Patient reports feeling achy all over. He endorses a dull, achy pain in his abdomen and chest. He denies any SOB or cough. He denies any F/C. - Objective MAR Reviewed: Yes Vital Signs & Weight: Vital Signs (12 hours) Temp Pulse Resp BP Pulse Ox 01/26/18 04:25 98.8 F 85 16 128/83 98 01/25/18 23:50 97.7 F 71 16 131/86 98 Weight Admit Weight 64.7 kg Weight 70.76 kg Most Recent Monitor Data Heart Rate from ECG 99 NIBP 123/84 NIBP BP-Mean 97 Respiration from ECG 16 SpO2 100 I&O: 01/25/18 01/26/18 01/27/18 06:59 06:59 06:59 Intake Total 1775 3760 Output Total 320 2430 Balance 1455 1330 Result Diagrams: 01/26/18 04:35 01/26/18 04:35 Phys Exam - Physical Examination Constitutional: NAD HEENT: moist MMs, sclera anicteric Respiratory: no wheezing, no rales, no rhonchi, clear to auscultation bilateral Cardiovascular: RRR, no significant murmur, no rub Gastrointestinal: soft, no distention, positive bowel sounds mildly TTP diffusely 1+ pitting edema in BLE. Neurological: non-focal, moves all 4 limbs Psychiatric: normal affect, A&O x 3 Deviation from normal: dressing in place over BLE Dx/Plan (1) Septic shock Code(s): A41.9 - SEPSIS, UNSPECIFIED ORGANISM; R65.21 - SEVERE SEPSIS WITH SEPTIC SHOCK Status: Resolved (2) Complicated urinary tract infection Code(s): N39.0 - URINARY TRACT INFECTION, SITE NOT SPECIFIED Status: Acute (3) Acute encephalopathy Code(s): G93.40 - ENCEPHALOPATHY, UNSPECIFIED Status: Acute (4) Anemia Code(s): D64.9 - ANEMIA, UNSPECIFIED Status: Acute (5) Colostomy in place Code(s): Z93.3 - COLOSTOMY STATUS Status: Acute (6) History of Guillain-[place] syndrome Code(s): Z86.69 - PERSONAL HISTORY OF DIS OF THE NERVOUS SYS AND SENSE ORGANS Status: Acute (7) Paraplegia Code(s): G82.20 - PARAPLEGIA, UNSPECIFIED Status: Acute (8) Severe protein-calorie malnutrition Code(s): E43 - UNSPECIFIED SEVERE PROTEIN-CALORIE MALNUTRITION Status: Acute (9) Stage IV decubitus ulcer Code(s): L89.94 - PRESSURE ULCER OF UNSPECIFIED SITE, STAGE 4 Status: Acute Qualifiers: Pressure injury location: sacral region Qualified Code(s): L89.154 - Pressure ulcer of sacral region, stage 4 - Plan Plan: Septic shock, resolved 2/2 UTI. s/p epi and levophed gtt. 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 Pt AOx3 with no tangential or abnormal speech or thought process. - new areas of infarct on CT. MRI showed nonspecific multifocal white matter abnormalities. - unknown etiology - Was likely 2/2 delirium. Pt feels improved after a good night sleep
[2018-01-26 10:56] LABS: Iron 70 ug/dL (65-175); Iron Binding Capacity, Total 103 mcg/dL (261-462)
[2018-01-26] MEDS ORDERED: Potassium Chloride 20 MEQ TAB PO SCH (12:45)
[2018-01-26] MEDS: Morphine 2 MG/ML SYRINGE SLOW IVP PRN ×2 (13:33→17:53)
[2018-01-26] MEDS ORDERED: Iopamidol 370 76% 100 ML VIAL ONE (13:34)
[2018-01-26] MEDS: Baclofen 10 MG TAB PO SCH ×2 (15:49→20:15)
[2018-01-26] MEDS: Gabapentin 300 MG CAP PO SCH ×2 (15:49→20:16)
--- NOTE | 2018-01-26 17:34 | CT ---
CTA BRAIN PRE AND POST CONTRAST ENHANCED: TECHNIQUE: After administration of IV contrast, 2D and 3D reconstructed images were performed on an independent 3D work station. FINDINGS: Noncontrast enhanced CTA brain is unremarkable, with no evidence of intracranial masses or lesions. The distal internal carotid arteries are unremarkable. The petrous, cavernous, and supraclinoid ICAs are unremarkable. The CAMPBELL and MCA vessels bilaterally are unremarkable. The vertebrobasilar arteries are unremarkable. The posterior cerebral arteries are unremarkable. IMPRESSION: Unremarkable intracranial CTA. POS: [facility]
[2018-01-26] MEDS: Sodium Chloride 0.45% 1,000 ML IV SCH (20:14)
[2018-01-26] MEDS: buPROPion 75 MG TAB PO SCH (20:15)
[2018-01-26] MEDS: Naproxen 500 MG TAB PO SCH (20:16)
[2018-01-26] MEDS ORDERED: Non-Formulary Item 1 EACH (Naproxen [Naproxen] 250 MG) PO SCH (21:00)
[2018-01-27 04:57] LABS: Band 3 % (5-11); Hemoglobin 8.8 g/dL (14.0-18.0); Lymphocytes 22 % (21-51); MDiff Complete? YES; Mean Corpuscular HGB CONC 30.5 g/dL (32.0-36.0); Mean Corpuscular Hemoglobin 23.8 pg (27.0-31.0); Mean Corpuscular Volume 78.1 fL (78.0-98.0); Metamyelocyte 1 % (0-0); Monocytes 7 % (0-10); Neutrophil 67 % (42-75); PLT Morphology Comment Appears Increased; Platelet Count 444 thou/uL (130-400); RBC Distribution Width 16.6 % (11.5-14.5); Red Blood Cell (RBC) Count 3.69 mill/uL (4.70-6.10); White Blood Cell (WBC) Count 13.5 thou/uL (4.8-10.8)
[2018-01-27 05:10] LABS: Anion Gap 10 mmol/L (10-20); BUN (Urea Nitrogen) 9 mg/dL (8.9-20.6); Calc. Creatinine Clearance 154 mL/min (70-130); Calcium 7.9 mg/dL (7.8-10.44); Carbon Dioxide 24 mmol/L (22-29); Chloride 112 mmol/L (98-107); Estimated GFR-MDRD Greater than 90; Glucose 93 mg/dL (70-105); Potassium 3.3 mmol/L (3.5-5.1); Sodium 143 mmol/L (136-145)
[2018-01-27] MEDS: Piperacillin/Tazobactam 3.375 GM in Sodium Chloride 0.9% 100 ML IVPB SCH ×4 (05:44→23:58)
[2018-01-27 08:27] LABS: Vancomycin, Trough 17.2 ug/mL
--- NOTE | 2018-01-27 09:26 | PDOC.FM ---
- Subjective Subjective: Patient reports that he feels much better this AM. He denies any chest pain, abdominal pain, fevers, chills, new weakness or confusion. - Objective MAR Reviewed: Yes Vital Signs & Weight: Vital Signs (12 hours) Temp Pulse Resp BP Pulse Ox 01/27/18 04:00 98.6 F 89 19 102/63 94 L 01/27/18 00:00 98.9 F 75 18 127/85 97 Weight Admit Weight 64.7 kg Weight 70.76 kg Most Recent Monitor Data Heart Rate from ECG 99 NIBP 123/84 NIBP BP-Mean 97 Respiration from ECG 16 SpO2 100 I&O: 01/26/18 01/27/18 01/28/18 06:59 06:59 06:59 Intake Total 3760 1709 Output Total 2430 3390 Balance 1330 -1681 Result Diagrams: 01/27/18 04:33 01/27/18 04:33 <Ashley Dee - Last Filed: 01/27/18 09:23> - Objective Vital Signs & Weight: Vital Signs (12 hours) Temp Pulse Resp BP Pulse Ox 01/27/18 04:00 98.6 F 89 19 102/63 94 L 01/27/18 00:00 98.9 F 75 18 127/85 97 Weight Admit Weight 64.7 kg Weight 64.438 kg Most Recent Monitor Data Heart Rate from ECG 99 NIBP 123/84 NIBP BP-Mean 97 Respiration from ECG 16 SpO2 100 I&O: 01/26/18 01/27/18 01/28/18 06:59 06:59 06:59 Intake Total 3760 2849 Output Total 2430 3390 Balance 1330 -541 Result Diagrams: 01/27/18 04:33 01/27/18 04:33 <Bill Navarro - Last Filed: 01/27/18 11:16> Phys Exam - Physical Examination Constitutional: NAD HEENT: PERRLA, moist MMs Respiratory: no wheezing, no rales, no rhonchi, clear to auscultation bilateral Cardiovascular: RRR, no significant murmur, no rub Gastrointestinal: soft, non-tender, no distention, positive bowel sounds ostomy in place Psychiatric: normal affect, A&O x 3 Skin: normal turgor, cap refill <2 seconds <Ashley Dee - Last Filed: 01/27/18 09:23> Dx/Plan (1) Septic shock Code(s): A41.9 - SEPSIS, UNSPECIFIED ORGANISM; R65.21 - SEVERE SEPSIS WITH SEPTIC SHOCK Status: Resolved (2) Complicated urinary tract infection Code(s): N39.0 - URINARY TRACT INFECTION, SITE NOT SPECIFIED Status: Acute (3) Acute encephalopathy Code(s): G93.40 - ENCEPHALOPATHY, UNSPECIFIED Status: Acute (4) Anemia Code(s): D64.9 - ANEMIA, UNSPECIFIED Status: Acute (5) Colostomy in place Code(s): Z93.3 - COLOSTOMY STATUS Status: Acute (6) History of Guillain-[place] syndrome Code(s): Z86.69 - PERSONAL HISTORY OF DIS OF THE NERVOUS SYS AND SENSE ORGANS Status: Acute (7) Paraplegia Code(s): G82.20 - PARAPLEGIA, UNSPECIFIED Status: Acute (8) Severe protein-calorie malnutrition Code(s): E43 - UNSPECIFIED SEVERE PROTEIN-CALORIE MALNUTRITION Status: Acute (9) Stage IV decubitus ulcer Code(s): L89.94 - PRESSURE ULCER OF UNSPECIFIED SITE, STAGE 4 Status: Acute Qualifiers: Pressure injury location: sacral region Qualified Code(s): L89.154 - Pressure ulcer of sacral region, stage 4 - Plan Plan: Septic shock, resolved 2/2 UTI. s/p epi and levophed gtt. 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 Pt AOx3 with no tangential or abnormal speech or thought process. - new areas of infarct on CT. MRI showed nonspecific multifocal white matter abnormalities. CTA diomede of tucker was unremarkable. - unknown etiology - Neurology has been consulted, appreciate recs <Ashley Dee - Last Filed: 01/27/18 09:23> Attending Addendum - Attending Addendum Date/Time: 01/27/18 2700 I personally evaluated the patient and discussed the management with Dr. Dee. I agree with the History, Examination, Assessment and Plan documented above with any addition or exceptions noted below. 37 yo man admitted for septic shock 2/2 UTI and with stage IV decubitus ulcers as a results of lower extremity paralysis from Guillan [place] syndrome. Pt's sepsis has resolved and he is pending a surgery consult with Dr. Ponce for the decubitus ulcers. Records from [place] show that he had osteo. Will review records and discuss case with Dr. Munoz. <Bill Navarro - Last Filed: 01/27/18 11:16>
[2018-01-27] MEDS: Divalproex Sodium 250 MG (DR) TAB PO SCH ×2 (10:05→20:20)
[2018-01-27] MEDS: Gabapentin 300 MG CAP PO SCH ×3 (10:05→20:21)
[2018-01-27] MEDS: Baclofen 10 MG TAB PO SCH ×3 (10:05→20:21)
[2018-01-27] MEDS: risperiDONE 1 MG TAB PO SCH ×2 (10:07→20:21)
[2018-01-27] MEDS: Naproxen 500 MG TAB PO SCH ×2 (10:07→20:47)
[2018-01-27] MEDS: Vancomycin HCl 1 GM in Premix Bag 1 BAG IVPB SCH ×2 (10:09→20:24)
[2018-01-27] MEDS: buPROPion 75 MG TAB PO SCH ×2 (10:11→20:21)
[2018-01-27] MEDS: Potassium Chloride 20 MEQ TAB PO SCH ×2 (10:47→14:31)
[2018-01-27] MEDS: Sodium Chloride 0.45% 1,000 ML IV SCH ×2 (10:49→11:18)
--- NOTE | 2018-01-27 11:01 | PRG ---
DATE OF SERVICE: 01/27/2018 SERVICE: Pulmonary Medicine. INTERVAL HISTORY: The patient is doing absolutely fantastic from a respiratory standpoint. He has absolutely no complaints. He denies any current fevers, chills, shortness of breath, nausea or vomiting. Otherwise, he is returning to his usual state of health. OBJECTIVE: VITAL SIGNS: Afebrile, pulse 89, blood pressure 102/63, respirations 19, saturation 94% on room air. GENERAL: The patient is awake, alert, no apparent distress. LUNGS: Excellent air entry. There is no prolonged expiratory phase or wheezing present. HEART: Normal rate, regular. ABDOMEN: Soft, nontender, nondistended. Bowel sounds are positive. MUSCULOSKELETAL: No cyanosis or clubbing. There is no pitting in the bilateral lower extremities. NEUROLOGIC: Grossly nonfocal. LABORATORY DATA: WBC 13.5, hemoglobin 8.8, platelets 444,000. Potassium 3.3. Basic metabolic profile is otherwise unremarkable. Blood cultures x2 and urine culture unremarkable. IMAGING: CT of [place] was unremarkable. ASSESSMENT: 1. Septic shock, resolved. 2. Urinary tract infection. 3. Stage IV decubitus ulcer, present on admission with likely superinfection. 4. Acute kidney injury, resolved. 5. Obstructive sleep apnea, suspected. DISCUSSION AND PLAN: At this point, the patient has cleared his sepsis profile. He will need long-term antibiotics most likely. As such, PICC line will be placed, and his IJ will be removed. I will drop his IV fluids as he is tolerating some p.o. A couple doses of potassium will be provided. At this point, he has no further requirements for inpatient Pulmonary or Critical Care opinion and I will sign off. Please call with additional questions or concerns moving forward. JENNIFER
[2018-01-27 18:49] LABS: Bilirubin Negative (Negative); Blood, Urine Moderate (Negative); Clarity CLOUDY (Clear); Glucose, Urine (Dipstick) Negative (Negative); Leukocyte Large (Negative); Nitrite Negative (Negative); Protein, Urine (Dipstick) 30 mg/dL (Neg-Trace); Specific Gravity, Urine 1.023 (1.002-1.036); Urobilinogen 0.2 mg/dL (0.2-1.0)
[2018-01-27 18:52] LABS: Bacteria/HPF None Seen HPF (None Seen); WBC/HPF 21-50 HPF (0-3)
[2018-01-27 18:58] LABS: Pathc Cast-AUWi Flag 6.39 (0-2.49)
[2018-01-27 19:11] LABS: Hyaline Casts/LPF 0-3 HYALINE CAST LPF (0-3 Hyaline); Other Casts/LPF None Seen LPF (0-3 Hyaline)
--- NOTE | 2018-01-27 22:29 | CON ---
DATE OF CONSULTATION: 01/27/2018 CONSULTING PHYSICIAN: Family Medicine Service. 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 Ulnar distribution wea kness in the left hand and incontinence of bowel and bladder, diagnosed as Guillain-[place]. This clin ical picture is not consistent with Guillain-[place] pattern of weakness a bit more suspicious that he had transverse myelitis. 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 There is no evidence of vasculitis on his clinical exam or CTA. PLAN: Supportive measures to address the sacral ulcers. HISTORY: Mr. Lamar is a 37-year-old man with a past history of an acute neurologic illness that res ulted in him being hospitalized and placed on a ventilatory support. He has some sketchy memories of pieces of the hospitalization. He reports that once he was extubated, he was able to speak. He was weak in all 4 extremities, but regained strength in his upper extremities, more so in the legs. The re is a progressive atrophy in the left hand and the ulnar nerve distribution has developed. He tor ins paraplegic. As far as his legs are concerned, he reports that this sensation has gradually impro robert from where it was extending up to the groin level with numbness which has diminished to about the knee level. He has regained a little bit of movement in his legs since then. He has been hospitali zed in [place] for his sacral ulcers. He was readmitted here for the same reason. He was acting a bit inappropriately. An MRI of the brain was done that showed some spotty white matter abnormaliti es bilaterally. There is no evidence of enhancement. CTA of the brain was unremarkable. His CRP is elevated, probably secondary to infection. He is without any complaints of headache, nausea, vomiti ng, dizziness, difficulty speaking, vision disturbance, swallowing difficulties or new focal neurolog ic symptoms. PAST MEDICAL HISTORY: Otherwise, unremarkable. SOCIAL HISTORY: Positive for tobacco. Reportedly from the [place] area. FAMILY HISTORY: Noncontributory. REVIEW OF SYSTEMS: Otherwise, negative. PHYSICAL EXAMINATION: VITAL SIGNS: Blood pressure 120/78, pulse 88, respirations 16, temperature 97.4. HEENT: Pupils are equal and reactive. Conjunctivae clear. Oropharynx clear. NECK: Supple, no lymphadenopathy. NEUROLOGIC: He is alert and appropriate. His speech is fluent and clear. Cranial nerves II-XII are intact. Motor exam showed good strength in the right arm. Left arm showed intrinsic atrophy in the ulnar nerve distribution. Sensation was intact in both hands. Lower extremities showed some trace movement bilaterally. He was flaccid at the ankles. Sensation was subjectively decreased to light t ouch up to the knees. Plantar responses were mute. He has had 2+ reflexes at the elbows. No abnorm al movements were seen. SUMMARY: This is a 37-year-old man with severe neurologic injury, possibly due to West Nile virus or transverse myelitis. It is difficult to say at this point I think that the changes on MRI are relat ed to his chronic neuropathic injury. There is nothing in particular needs to be done.
[2018-01-28] MEDS: Sodium Chloride 0.45% 1,000 ML IV SCH ×2 (05:30→10:54)
[2018-01-28] MEDS: Piperacillin/Tazobactam 3.375 GM in Sodium Chloride 0.9% 100 ML IVPB SCH ×4 (05:46→23:35)
--- NOTE | 2018-01-28 07:21 | PDOC.FM ---
- Subjective Subjective: Patient reports continued pain in his lower back/sacral region. He denies any N/ V, F/C. He reports sleeping well and no confusion. - Objective MAR Reviewed: Yes Vital Signs & Weight: Vital Signs (12 hours) Temp Pulse Resp BP Pulse Ox 01/28/18 04:00 97.8 F 86 19 135/86 95 01/28/18 00:00 99.4 F 102 H 18 116/71 94 L 01/27/18 20:00 97.9 F 98 19 120/80 96 Weight Admit Weight 64.7 kg Weight 63.503 kg Most Recent Monitor Data Heart Rate from ECG 99 NIBP 123/84 NIBP BP-Mean 97 Respiration from ECG 16 SpO2 100 I&O: 01/27/18 01/28/18 01/29/18 06:59 06:59 06:59 Intake Total 2849 1850 Output Total 3390 1999 Balance -548 -151 Result Diagrams: 01/27/18 04:33 01/27/18 04:33 <Ashley Dee - Last Filed: 01/28/18 08:53> - Objective Vital Signs & Weight: Vital Signs (12 hours) Temp Pulse Resp BP Pulse Ox 01/28/18 08:00 98.4 F 90 20 105/62 93 L 01/28/18 04:00 97.8 F 86 19 135/86 95 01/28/18 00:00 99.4 F 102 H 18 116/71 94 L Weight Admit Weight 64.7 kg Weight 63.503 kg Most Recent Monitor Data Heart Rate from ECG 99 NIBP 123/84 NIBP BP-Mean 97 Respiration from ECG 16 SpO2 100 I&O: 01/27/18 01/28/18 01/29/18 06:59 06:59 06:59 Intake Total 2849 1850 Output Total 3390 1999 Balance -716 -372 Result Diagrams: 01/27/18 04:33 01/27/18 04:33 <Bill Navarro - Last Filed: 01/28/18 11:02> Phys Exam - Physical Examination Constitutional: NAD HEENT: moist MMs, sclera anicteric Respiratory: no wheezing, no rales, no rhonchi, clear to auscultation bilateral Cardiovascular: RRR, no significant murmur, no rub Gastrointestinal: soft, non-tender, no distention Psychiatric: normal affect, A&O x 3 Deviation from normal: ulcer on L heel with dressing in place -: Dressing in place over bilateral ischial spine stage IV ulcers <Ashley Dee - Last Filed: 01/28/18 08:53> Dx/Plan (1) Septic shock Code(s): A41.9 - SEPSIS, UNSPECIFIED ORGANISM; R65.21 - SEVERE SEPSIS WITH SEPTIC SHOCK Status: Resolved (2) Complicated urinary tract infection Code(s): N39.0 - URINARY TRACT INFECTION, SITE NOT SPECIFIED Status: Acute (3) Acute encephalopathy Code(s): G93.40 - ENCEPHALOPATHY, UNSPECIFIED Status: Acute (4) Anemia Code(s): D64.9 - ANEMIA, UNSPECIFIED Status: Acute (5) Colostomy in place Code(s): Z93.3 - COLOSTOMY STATUS Status: Acute (6) History of Guillain-[place] syndrome Code(s): Z86.69 - PERSONAL HISTORY OF DIS OF THE NERVOUS SYS AND SENSE ORGANS Status: Acute (7) Paraplegia Code(s): G82.20 - PARAPLEGIA, UNSPECIFIED Status: Acute (8) Severe protein-calorie malnutrition Code(s): E43 - UNSPECIFIED SEVERE PROTEIN-CALORIE MALNUTRITION Status: Acute (9) Stage IV decubitus ulcer Code(s): L89.94 - PRESSURE ULCER OF UNSPECIFIED SITE, STAGE 4 Status: Acute Qualifiers: Pressure injury location: sacral region Qualified Code(s): L89.154 - Pressure ulcer of sacral region, stage 4 - Plan Plan: Septic shock, resolved 2/2 UTI. s/p epi and levophed gtt. - Cont Vanc, Zosyn - UCx wasn't sent from initial urine, repeat showed NGTD - BCx no growth Complicated UTI - cont Vanc, Zosyn Stage 4 Decubitus ulcers Bilateral ischial spine ulcers. 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 However, neurology believes this is more likely due to West Nile Virus vs Transverse Myelitis - APS called from ED - cont wound care and broad spectrum ABX, gen surg consult - await gen surg recs - Neuro on board, appreciate recs Encephalopathy Appears resolved. Pt AOx3 with no tangential or abnormal speech or thought process. New areas of infarct on CT. MRI showed nonspecific multifocal white matter abnormalities. CTA [place] was unremarkable. Was likely delirium vs psychosis. - Continue risperdone and depakote - Neurology has been consulted, appreciate recs <Ashley Dee - Last Filed: 01/28/18 08:53> Attending Addendum - Attending Addendum Date/Time: 01/28/18 1050 I personally evaluated the patient and discussed the management with Dr. Dee I agree with the History, Examination, Assessment and Plan documented above with any addition or exceptions noted below. 37 y/o paraplegic who presented in Septic Shock 2/2 UTI that has now resolved with abx. Continue vanc and zosyn. Pt was found on review of prior records to have osteomyelitis of L heel and ischial spines bilaterally. Consulted general surgery and infectious disease for their recommendations as the patient left the last hospital AMA before getting full treatment for osteo. Wound care following. <Bill Navarro - Last Filed: 01/28/18 11:02>
[2018-01-28] MEDS: Divalproex Sodium 250 MG (DR) TAB PO SCH ×2 (08:46→21:03)
[2018-01-28] MEDS: Baclofen 10 MG TAB PO SCH ×3 (08:47→21:02)
[2018-01-28] MEDS: Gabapentin 300 MG CAP PO SCH ×3 (08:47→21:03)
[2018-01-28] MEDS: buPROPion 75 MG TAB PO SCH ×2 (08:47→21:03)
[2018-01-28] MEDS: Naproxen 500 MG TAB PO SCH ×2 (08:48→21:02)
[2018-01-28] MEDS: risperiDONE 1 MG TAB PO SCH ×2 (08:48→21:03)
[2018-01-28] MEDS: Vancomycin HCl 1 GM in Premix Bag 1 BAG IVPB SCH ×2 (08:49→21:15)
[2018-01-28] MEDS: Morphine IR 10 MG/5 ML UDCUP PO PRN ×3 (13:43→23:30)
[2018-01-28 15:14] LABS: ANA Symphony (Qualitative) Negative (Negative); dsDNA IgG Antibody 2.6 IU/mL (<10 Negative)
--- NOTE | 2018-01-28 18:27 | CON ---
DATE OF CONSULTATION: 01/28/2018 REASON FOR CONSULTATION: Decubitus ulcers. HISTORY OF PRESENT ILLNESS: A 37-year-old with some neurological disorder. 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 The patient originally was diagnosed, I believe in [place] and he went to [place] to be with family and was admitted 2 or 3 area hospitals in [place] for management of decubitus ulce rs. He had two long courses of IV antimicrobials, PICC line and the complex wound management and quang ridement in [place] and eventually end up transferred to [place] on his own account and stayed th [facility] for quite a few weeks. For some reason, he decided to leave [place] and he left there and end ed up in [facility]. He has quite complicated situation. His family has moved down to [facility] and his mother took his wheelchair with her and had not been able to get the full details o f his personal situation. Make a long story short, he has those advanced decubitus ulcers and needs care for them. The patient's somebody had some bradycardia and hypotension, maggots were noted along to his ischial tuberosities posterior heel. He was given atropine and intubated. The Nolan cathete r was placed as well. Patient has neurogenic bladder and had been using in and out catheterization, but has had a Nolan catheter since he was admitted. Initially he was bradycardiac at 30. CBC was pl aced in the right IJ and then admitted to the ICU. Initial findings included a white cell count 10.8 , hemoglobin 9.4, MCV 80, platelets 292 with 87% neutrophils. Sodium 133. Lactic acid 0.7, creatini ne 3.12. Liver profile was normal. Albumin was 2.3, globulin 2.4. Urinalysis with greater than 50 WBCs. HELENA screen, which was negative. Toxicology with detected cannabinoids. The patient has had 2 sets of blood cultures negative thus far and 2 sets of urine culture thus far negative as well. Sofia ging studies include abdomen and pelvis CT with mild bilateral hydroureteronephrosis. Chest x-ray wi th pulmonary vascular congestion. There is a forearm x-ray with internal fixation hardware in the ra dius. A brain MRI with multifocal white matter signal abnormalities on the basis of likely demyelina ting process. He had a CT angio of [place], which was not remarkable. Currently, Mr. Rachelle lyles is awake and is pleasant. He denies any headaches, no visual symptoms, sore throat. No diffic ulty swallowing. No respiratory symptoms. No back pain, no abdominal pain. PAST MEDICAL HISTORY: Includes degenerative neurological condition, possibly multiple sclerosis, viry rogenic bladder with intermittent catheterization in the past, malnutrition, multiple decubitus ulcer s in the ischial gluteal presacral region and heel area managed with surgical debridement and protrac sabina antimicrobial therapy and complex wound care. He has a colostomy for diversion of the fecal outp ut and to help with the wound care management. FAMILY HISTORY: Noncontributory. SOCIAL HISTORY: He is to live in [place], transferred to [place] and has an unstable personal so cial life. Family has now moved to [place] and is somewhat complicated situation. CURRENT MEDICATION LIST: Include Tylenol, , Wellbutrin, Depakote, Neurontin, Haldol, morphine, Naprosyn, Protonix, Zosyn, risperidone, vancomycin. PHYSICAL EXAMINATION: VITAL SIGNS: Temperature max 99.4, blood pressure 130/87, pulse 81, respirations 16, O2 sat 97% room air. SKIN: Shows 2 large ischial ulcerations, left and right side, has a femoral ulcer, with some u nstageable few petechiae and then he has 2 ulcers in the heel area posterior aspect with both not sta geable. The one on the left has a wide irregularly shaped black eschar at the base. The right one i s smaller, it is kind of a yellowish scab on top of this ulcer. HEENT: His ocular movements are conjugate. Oral cavity is moist. Quite a few teeth in place. NECK: Supple, no jugular distention. LUNGS: With symmetric air entry without crackles or wheezing. HEART: S1, S2, regular rate. ABDOMEN: Flat, scaphoid. No ascites. No bladder distention, no organomegaly noted. EXTREMITIES: No joint inflammatory activity. He is completely paralyzed in the lower extremities. He has some movements in the left upper extremity and is much better motility of the right upper extr emity. There is evidence of atrophy of the musculature of the interosseous muscle on the left hand. NEUROLOGIC: His cognitive function appears to be intact. LABORATORY DATA: The followup labs show a white cell count 13.5, hemoglobin 8.8, platelets 444, 67% neutrophils and 3% bands. INR 1.4. Chemistry with sodium of 135, potassium 3.1. Creatinine is down to 2.73, glucose 214. Liver profile with AST 56, albumin 2.4. HELENA screen was negative. ASSESSMENT AND DISCUSSION: 1. 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 2. Multiple decubitus ulcers, stage IV, treated extensively in the past. 3. Personal issues related to his family situation with quite unstable living conditions, right now his mind self in the hospital and appears to be homeless and family moved to [place]. 4. Leukocytosis. 5. Neurogenic bladder with urinary obstruction previously managed with in and out catheterization, b ut now he has an indwelling Nolan catheter. DISCUSSION: Patient will have to have those ulcers restaged with a MRI of pelvis with contrast, The creatinine has decreased to 0.65 and the contrast can be administered for either tests. Continue wo und care management. He probably needs to be transferred to a alf for continuation of manag ement suprapubic catheter may be considered going forward. He may want to wait and then switch back to in and out catheterizations. The reason for the acute decompensation may be related to the neurog enic bladder and urinary retention with a foot infection related to that. There was no evidence of n ot an alternate intraabdominal inflammatory process or respiratory tract involvement. The demyelinat ing process in the brain imaging studies, probably due to multiple sclerosis.
[2018-01-28 20:10] LABS: Vancomycin, Trough 14.8 ug/mL
--- NOTE | 2018-01-28 20:49 | CON ---
DATE OF CONSULTATION: 01/28/2018 CHIEF COMPLAINT: Sacral and ischial decubitus ulcers with concern regarding underlying osteomyelitis . HISTORY OF PRESENT ILLNESS: The patient is a 37-year-old white male. He apparently had sustained so me neurological problem about 10 months ago and has been a paraplegic since then. I am uncertain of the time course of the development of these ulcers. He has recently been admitted per the [facility] and I am asked to evaluate his decubitus ulcers. On brief examination, he has multiple ulcers with several dressings intact on his posterior lower [place] across his sacral region and laterally across his lower back as well. Due to the complexity of the se dressings, I would prefer to evaluate these wounds in conjunction with the Wound Care Team. I hav e therefore asked the Wound Care Team to contact me in the morning for a dressing change, and I will examine the wounds at the time that they are changing the dressings and make recommendations based up on the findings at that time.
[2018-01-29] MEDS: Piperacillin/Tazobactam 3.375 GM in Sodium Chloride 0.9% 100 ML IVPB SCH ×3 (05:17→17:41)
[2018-01-29] MEDS: Morphine IR 10 MG/5 ML UDCUP PO PRN ×3 (05:40→17:51)
--- NOTE | 2018-01-29 06:07 | EKG ---
Test Reason : STAT Blood Pressure : / mmHG Vent. Rate : 085 BPM Atrial Rate : 085 BPM P-R Int : 146 ms QRS Dur : 084 ms QT Int : 384 ms P-R-T Axes : 067 064 079 degrees QTc Int : 456 ms Normal sinus rhythm Poor baseline tracing in V4. Abnormal ECG When compared with ECG of 22-JAN-2018 15:30, (Unconfirmed) QRS duration has decreased QT has shortened Confirmed by JEANETTE DA SILVA ([id number]) on 01/29/2018 6:07:31 AM Referred By: COREY Confirmed By:JEANETTE DA SILVA
[2018-01-29] MEDS: Naproxen 500 MG TAB PO SCH ×2 (08:43→22:19)
[2018-01-29] MEDS: Vancomycin HCl 1 GM in Premix Bag 1 BAG IVPB SCH ×2 (08:43→22:18)
[2018-01-29] MEDS: Gabapentin 300 MG CAP PO SCH ×3 (08:44→22:17)
[2018-01-29] MEDS: Divalproex Sodium 250 MG (DR) TAB PO SCH ×2 (08:45→22:17)
[2018-01-29] MEDS: risperiDONE 1 MG TAB PO SCH ×2 (08:45→22:18)
[2018-01-29] MEDS: Baclofen 10 MG TAB PO SCH ×3 (08:45→22:19)
[2018-01-29] MEDS: buPROPion 75 MG TAB PO SCH ×2 (08:45→22:17)
--- NOTE | 2018-01-29 08:53 | PDOC.FM ---
- Subjective Subjective: Patient reports that his pain is improved on the new regimen. He denies any Fevers/Chills, N/V. He reports that he would like to go back to [place] after this hospitalization. - Objective MAR Reviewed: Yes Vital Signs & Weight: Vital Signs (12 hours) Temp Pulse Resp BP Pulse Ox 01/29/18 07:50 97.5 F L 97 16 130/86 92 L 01/29/18 04:00 99.1 F 83 20 115/75 92 L 01/29/18 00:00 97.9 F 74 16 116/78 92 L Weight Admit Weight 64.7 kg Weight 67.449 kg Most Recent Monitor Data Heart Rate from ECG 99 NIBP 123/84 NIBP BP-Mean 97 Respiration from ECG 16 SpO2 100 I&O: 01/28/18 01/29/18 01/30/18 06:59 06:59 06:59 Intake Total 1849 1300 Output Total 19990 Balance -150 -2400 Result Diagrams: 01/27/18 04:33 01/27/18 04:33 <Ashley Dee - Last Filed: 01/29/18 08:50> - Objective Vital Signs & Weight: Vital Signs (12 hours) Temp Pulse Resp BP Pulse Ox 01/29/18 08:42 92 L 01/29/18 07:50 97.5 F L 97 16 130/86 92 L 01/29/18 04:00 99.1 F 83 20 115/75 92 L 01/29/18 00:00 97.9 F 74 16 116/78 92 L Weight Admit Weight 64.7 kg Weight 67.449 kg Most Recent Monitor Data Heart Rate from ECG 99 NIBP 123/84 NIBP BP-Mean 97 Respiration from ECG 16 SpO2 100 I&O: 01/28/18 01/29/18 01/30/18 06:59 06:59 06:59 Intake Total 0 1300 Output Total 19990 Balance -150 -2400 Result Diagrams: 01/27/18 04:33 01/27/18 04:33 <Bill Navarro - Last Filed: 01/29/18 10:14> Phys Exam - Physical Examination Constitutional: NAD HEENT: moist MMs, sclera anicteric Respiratory: no wheezing, no rales, no rhonchi, clear to auscultation bilateral Cardiovascular: RRR, no significant murmur, no rub Gastrointestinal: soft, non-tender, no distention, positive bowel sounds Psychiatric: normal affect, A&O x 3 Deviation from normal: Ulcers on bilateral ischial tuberosities and L heel covered with dressings. <DeeAshley - Last Filed: 01/29/18 08:50> Dx/Plan (1) Septic shock Code(s): A41.9 - SEPSIS, UNSPECIFIED ORGANISM; R65.21 - SEVERE SEPSIS WITH SEPTIC SHOCK Status: Resolved (2) Complicated urinary tract infection Code(s): N39.0 - URINARY TRACT INFECTION, SITE NOT SPECIFIED Status: Acute (3) Acute encephalopathy Code(s): G93.40 - ENCEPHALOPATHY, UNSPECIFIED Status: Acute (4) Anemia Code(s): D64.9 - ANEMIA, UNSPECIFIED Status: Acute (5) Colostomy in place Code(s): Z93.3 - COLOSTOMY STATUS Status: Acute (6) History of Guillain-[place] syndrome Code(s): Z86.69 - PERSONAL HISTORY OF DIS OF THE NERVOUS SYS AND SENSE ORGANS Status: Acute (7) Paraplegia Code(s): G82.20 - PARAPLEGIA, UNSPECIFIED Status: Acute (8) Severe protein-calorie malnutrition Code(s): E43 - UNSPECIFIED SEVERE PROTEIN-CALORIE MALNUTRITION Status: Acute (9) Stage IV decubitus ulcer Code(s): L89.94 - PRESSURE ULCER OF UNSPECIFIED SITE, STAGE 4 Status: Acute Qualifiers: Pressure injury location: sacral region Qualified Code(s): L89.154 - Pressure ulcer of sacral region, stage 4 - Plan Plan: Septic shock, resolved 2/2 UTI. s/p epi and levophed gtt. - Cont Vanc, Zosyn - UCx wasn't sent from initial urine, repeat showed NGTD - BCx no growth Complicated UTI - cont Vanc, Zosyn Stage 4 Decubitus ulcers Bilateral ischial spine ulcers. 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 However, neurology believes this is more likely due to West Nile Virus vs Transverse Myelitis - APS called from ED - cont wound care and broad spectrum ABX, gen surg consult - await gen surg recs - Neuro on board, appreciate recs Encephalopathy, resolved Appears resolved. Pt AOx3 with no tangential or abnormal speech or thought process. New areas of infarct on CT. MRI showed nonspecific multifocal white matter abnormalities. CTA [place] was unremarkable. Was likely delirium vs psychosis. - Continue risperdone and depakote - Neurology has been consulted, appreciate recs <Ashley Dee - Last Filed: 01/29/18 08:50> Attending Addendum - Attending Addendum Date/Time: 01/29/18 1012 I personally evaluated the patient and discussed the management with Dr. Dee I agree with the History, Examination, Assessment and Plan documented above with any addition or exceptions noted below. 37 y/o M with h/o paraplegia due to transverse myelitis vs West Nile Virus. Awaiting General Surgery recs for Stage IV ulcers. Case Management on board for discharge planning. Pain better controlled today. MRI ordered per ID to restage decubitus ulcers. <Bill Navarro - Last Filed: 01/29/18 10:14>
[2018-01-29] MEDS: Acetaminophen 325 MG TAB PO PRN (08:59)
[2018-01-29] MEDS ORDERED: Gadobenate Dimeglumine 529 MG/1 ML (20ML VIAL) ONE (09:42)
--- NOTE | 2018-01-29 11:10 | CON ---
DATE OF CONSULTATION: 01/29/2018 CONSULTING PHYSICIAN: Dr. Bill Navarro REASON FOR CONSULTATION: Posterior decubitus ulcers. HISTORY OF PRESENT ILLNESS: The patient is a 37-year-old white male. He suffered an unfortunate viry rological event about 10 months ago. At some point between then and now, he developed decubitus ulce rs. I am told that he was hospitalized in [place] for almost 6 weeks. He was diagnosed with oste omyelitis involving his pelvis and was treated with a long course of wound care and IV antibiotics. He apparently left against medical advice early, apparently because of pain medication issues. He wa s recently hospitalized here and his admitting physicians asked that I evaluate his decubitus ulcers to ensure that there was no surgical care that was necessary. PAST MEDICAL HISTORY: 1. Significant for degenerative neurological condition of uncertain etiology. 2. Malnutrition. 3. Multiple decubitus ulcers involving his ischial tuberosities and sacral area and apparently his h eels as well. SURGICAL HISTORY: He had a colostomy to divert his fecal stream. PHYSICAL EXAMINATION: VITAL SIGNS: He is afebrile, pulse is between 83 and 97, blood pressure is 130/86. GENERAL: He is alert and oriented x3, pleasant, in no acute distress. HEENT: Unremarkable. NECK: Supple. LUNGS: Clear to auscultation anteriorly. CARDIAC: Regular rate and rhythm. ABDOMEN: Benign with well-functioning left-sided colostomy. BACK: He has multiple dressings across his lower back. These were all removed. He has a midline sa cral wound that appears to have been larger in the past, but is now fairly small and very superficial . His anus is identified in the middle of 2 large wounds on either side overlying his ischial tubero sities. These were large full-thickness wounds bilaterally. On the right side at the far lateral as pect I am able to palpate a little exposed bone. This is less than a centimeter of palpable bone. T here is soft tissue covering the bone in all other areas. On the left side, it appeared that this wa s the "soupier" side of the wound, but there does not appear to be any exposed bone on the left hand side. All tissue appears to be viable. There is no foul smell. There is no necrotic tissue in any location. LABORATORY AND X-RAY FINDINGS: His white blood cell count most recent was 13.5, hemoglobin is 8.8. Metabolic panel shows minimal electrolyte abnormalities. It appears that no specific wound cultures have been performed of the extensive drainage in this area . ASSESSMENT: Patient with large open wounds over bilateral ischial tuberosity posteriorly. There is no current role for surgical treatment. There is no tissue that requires debridement or excision. PLAN: I would recommend continued wound care using appropriate wound care modalities. Initial care to decrease the bacterial load might include Dakin solution. Would also consider obtaining a wound c ulture to make sure that further antibiotic treatment is appropriate. As there is no role for [facility] surgical care, I will see him in the future on a p.r.n. basis.
[2018-01-29] MEDS: Sodium Chloride 0.45% 1,000 ML IV SCH (12:22)
[2018-01-29 14:29] VITALS: BMI 23.3
--- NOTE | 2018-01-29 17:49 | MRI ---
[facility] MRI WITH AND WITHOUT IV CONTRAST: Date: 01/29/18 HISTORY: 37-year-old male with history of Stage IV decubitus ulcers. FINDINGS: There are very markedly enlarged right and left posterior decubitus ulcers overlying the ischium and ischiopubic rami bilaterally with some underlying altered bone marrow signal suspicious for underlyin g osteomyelitis, with some resultant thinning and deformity of the ischiopubic rami, evidence for reid gstanding process, which would certainly fit with the extensive size of these decubitus ulcers. There is no evidence for focal drainable abscess. There is extensive bilateral subcutaneous fluid, evidenc e for edema or possibly cellulitis. There is very extensive abnormal T2 and STIR hyperintensity invol ving essentially all the muscle groups of the pelvis and upper thighs. This includes gluteus rhona, minimus, and medius, as well as the adductor muscles and the proximal hamstring muscles and quadrice ps muscles. This is consistent with some very extensive nonspecific myositis, which I favor not to be acute infectious myositis just because of the overall extent of the abnormal signal. The femurs and hips show normal signal. There are some fluid density changes involving the superior fascia, particul zulay of the quadriceps muscles, as well as some intermuscular fluid density as well. No evidence for necrotizing fasciitis or myonecrosis. IMPRESSION: 1. Huge bilateral posterior decubitus ulcers, extending up to the right and left ischium and somewha t thinned and deformed bilateral ischiopubic rami with some abnormal signal, evidence for acute and/o r chronic osteomyelitis. No evidence for drainable abscess. Extensive bilateral subcutaneous edema an d/or cellulitis. 2. Very diffuse extensive abnormal signal within essentially all of the pelvic musculature and upper thigh musculature, as well as some superficial fascial edema and possibly minimal intermuscular fasc ial edema. Evidence for extensive nonspecific myositis with some associated superficial fasciitis, bu t no evidence for necrotizing fasciitis or intramuscular abscess or intramuscular necrosis. POS: MADINA
[2018-01-29] MEDS: Ketorolac Tromethamine 30 MG/ML VIAL IVP PRN (22:27)
[2018-01-30] MEDS: Piperacillin/Tazobactam 3.375 GM in Sodium Chloride 0.9% 100 ML IVPB SCH ×4 (00:39→18:20)
[2018-01-30] MEDS: Ketorolac Tromethamine 30 MG/ML VIAL IVP PRN ×3 (05:26→21:06)
[2018-01-30 08:41] LABS: Vancomycin, Trough 21.7 ug/mL
[2018-01-30] MEDS: Baclofen 10 MG TAB PO SCH ×3 (08:48→21:06)
[2018-01-30] MEDS: Divalproex Sodium 250 MG (DR) TAB PO SCH ×2 (08:49→21:06)
[2018-01-30] MEDS: buPROPion 75 MG TAB PO SCH ×2 (08:49→21:05)
[2018-01-30] MEDS: Gabapentin 300 MG CAP PO SCH ×3 (08:50→21:06)
[2018-01-30] MEDS: risperiDONE 1 MG TAB PO SCH ×2 (08:51→21:06)
[2018-01-30] MEDS: Naproxen 500 MG TAB PO SCH ×2 (08:51→21:06)
[2018-01-30] MEDS: Vancomycin HCl 1 GM in Premix Bag 1 BAG IVPB SCH ×2 (08:52→21:05)
--- NOTE | 2018-01-30 09:20 | PDOC.FM ---
- Subjective Subjective: Patient reports continued pain in the region of his ulcers. He denies any F/C, N /V. - Objective MAR Reviewed: Yes Vital Signs & Weight: Vital Signs (12 hours) Temp Pulse Resp BP Pulse Ox 01/30/18 07:45 97.9 F 76 16 121/82 94 L 01/30/18 04:00 97.5 F L 82 10 L 115/72 92 L 01/30/18 00:00 97.1 F L 66 9 L 104/64 95 Weight Admit Weight 64.7 kg Weight 67.449 kg Most Recent Monitor Data Heart Rate from ECG 99 NIBP 123/84 NIBP BP-Mean 97 Respiration from ECG 16 SpO2 100 I&O: 01/29/18 01/30/18 01/31/18 06:59 06:59 06:59 Intake Total 1300 2205 Output Total 3700 3250 Balance -2400 -1045 Result Diagrams: 01/27/18 04:33 01/27/18 04:33 Phys Exam - Physical Examination Constitutional: NAD HEENT: moist MMs, sclera anicteric Respiratory: no wheezing, no rales, no rhonchi, clear to auscultation bilateral Cardiovascular: RRR, no significant murmur, no rub Gastrointestinal: soft, non-tender, no distention Musculoskeletal: pulses present Psychiatric: normal affect, A&O x 3 Deviation from normal: dressing in place over L heel ulcer and sacral/ischial ulcers Dx/Plan (1) Septic shock Code(s): A41.9 - SEPSIS, UNSPECIFIED ORGANISM; R65.21 - SEVERE SEPSIS WITH SEPTIC SHOCK Status: Resolved (2) Complicated urinary tract infection Code(s): N39.0 - URINARY TRACT INFECTION, SITE NOT SPECIFIED Status: Acute (3) Acute encephalopathy Code(s): G93.40 - ENCEPHALOPATHY, UNSPECIFIED Status: Acute (4) Anemia Code(s): D64.9 - ANEMIA, UNSPECIFIED Status: Acute (5) Colostomy in place Code(s): Z93.3 - COLOSTOMY STATUS Status: Acute (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 s/p epi and levophed gtt. - Cont Vanc, Zosyn - UCx wasn't sent from initial urine, repeat showed NGTD - BCx no growth Complicated UTI - cont Vanc, Zosyn Stage 4 Decubitus ulcers Bilateral ischial spine ulcers. Pt also has ulcer on L heel - wound care consulted - gen surg consulted, recommended continuing wound care, no surgical intervention required. 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 However, neurology believes this is more likely due to West Nile Virus vs Transverse Myelitis - APS called from ED - cont wound care and broad spectrum ABX, gen surg consult - Neuro on board, appreciate recs Encephalopathy, resolved Appears resolved. Pt AOx3 with no tangential or abnormal speech or thought process. New areas of infarct on CT. MRI showed nonspecific multifocal white matter abnormalities. CTA [place] was unremarkable. Was likely delirium vs psychosis. - Continue risperdone and depakote - Neurology has been consulted, appreciate recs
[2018-01-30] MEDS: Morphine IR 10 MG/5 ML UDCUP PO PRN ×2 (09:28→17:04)
[2018-01-30] MEDS ORDERED: VANCOMYCIN IVPB PRN (11:13)
[2018-01-30] MEDS: Sodium Chloride 0.45% 1,000 ML IV SCH (12:25)
--- NOTE | 2018-01-30 19:17 | SPC ---
PROCEDURE: Peripheral insertion of central catheter. INDICATIONS: Infection with need for long-term IV antibiotics. EXPOSURE: Fluoroscopy for 3 minutes with 997 mGy per cm2. FINDINGS: A single-lumen 5 [place] PICC line was placed near the left upper extremity, into the brachial vein, using ultrasound guidance, with fluoroscopic confirmation. The tip is positioned at the SVC/right at rium. PROCEDURE IN DETAIL: The left upper extremity was prepped and draped in a sterile manner. The left upper extremity was ev aluated with ultrasound. A brachial vein at the mid humerus level was chosen for puncture. Local an esthesia was administered. This vein was punctured under ultrasound guidance using a micropuncture t echnique. The wire was introduced and advanced into the SVC. The catheter length was then measured and cut. The sheath was placed over the wire. The catheter was then advanced over the wire. The pe el-away sheath was removed. The wire was removed. The catheter was flushed and secured with a steri le dressing. There were no problems or complications. POS: MADINA
[2018-01-31] MEDS: Piperacillin/Tazobactam 3.375 GM in Sodium Chloride 0.9% 100 ML IVPB SCH ×4 (00:16→17:54)
[2018-01-31] MEDS: Ketorolac Tromethamine 30 MG/ML VIAL IVP PRN ×2 (03:33→09:40)
[2018-01-31] MEDS: Sodium Chloride 0.45% 1,000 ML IV SCH (05:46)
--- NOTE | 2018-01-31 06:43 | PDOC.FM ---
- Subjective Subjective: Patient reports that his pain has been about a 5/10 from his wounds. He states that this is an improvement. He reports sleeping well and eating well. He denies any fevers, chills, N/V. - Objective MAR Reviewed: Yes Vital Signs & Weight: Vital Signs (12 hours) Temp Pulse Resp BP Pulse Ox 01/31/18 00:00 98 F 90 16 138/69 94 L 01/30/18 21:45 97.8 F 78 18 120/76 94 L 01/30/18 20:00 97.6 F 76 16 129/80 94 L 01/30/18 19:55 94 L Weight Admit Weight 64.7 kg Weight 67.449 kg Most Recent Monitor Data Heart Rate from ECG 99 NIBP 123/84 NIBP BP-Mean 97 Respiration from ECG 16 SpO2 100 I&O: 01/29/18 01/30/18 01/31/18 06:59 06:59 06:59 Intake Total 1300 2205 2515 Output Total 3700 3250 2400 Balance -2400 -1045 115 Result Diagrams: 01/27/18 04:33 01/27/18 04:33 <Ashley Dee - Last Filed: 01/31/18 06:41> - Objective Vital Signs & Weight: Vital Signs (12 hours) Temp Pulse Resp BP Pulse Ox 01/31/18 07:44 98.9 F 88 18 130/83 91 L 01/31/18 00:00 98 F 90 16 138/69 94 L Weight Admit Weight 64.7 kg Weight 67.449 kg Most Recent Monitor Data Heart Rate from ECG 99 NIBP 123/84 NIBP BP-Mean 97 Respiration from ECG 16 SpO2 100 I&O: 01/30/18 01/31/18 02/01/18 06:59 06:59 06:59 Intake Total 2205 2515 Output Total 3250 2400 Balance -1045 115 Result Diagrams: 01/27/18 04:33 01/27/18 04:33 <Dnaiel Terry - Last Filed: 01/31/18 09:59> Phys Exam - Physical Examination Constitutional: NAD HEENT: moist MMs, sclera anicteric Respiratory: no wheezing, no rales, no rhonchi, clear to auscultation bilateral Cardiovascular: RRR, no significant murmur, no rub Gastrointestinal: soft, non-tender, no distention, positive bowel sounds paralysis of BLE, partial paralysis of BUE Psychiatric: normal affect, A&O x 3 <Ashley Dee - Last Filed: 01/31/18 06:41> Dx/Plan (1) Septic shock Code(s): A41.9 - SEPSIS, UNSPECIFIED ORGANISM; R65.21 - SEVERE SEPSIS WITH SEPTIC SHOCK Status: Resolved (2) Complicated urinary tract infection Code(s): N39.0 - URINARY TRACT INFECTION, SITE NOT SPECIFIED Status: Acute (3) Acute encephalopathy Code(s): G93.40 - ENCEPHALOPATHY, UNSPECIFIED Status: Resolved (4) Anemia Code(s): D64.9 - ANEMIA, UNSPECIFIED Status: Acute Qualifiers: Anemia type: unspecified type Qualified Code(s): D64.9 - Anemia, unspecified (5) Colostomy in place Code(s): Z93.3 - COLOSTOMY STATUS Status: Acute (6) Paraplegia Code(s): G82.20 - PARAPLEGIA, UNSPECIFIED Status: Acute (7) Severe protein-calorie malnutrition Code(s): E43 - UNSPECIFIED SEVERE PROTEIN-CALORIE MALNUTRITION Status: Acute (8) Stage IV decubitus ulcer Code(s): L89.94 - PRESSURE ULCER OF UNSPECIFIED SITE, STAGE 4 Status: Acute Qualifiers: Pressure injury location: sacral region Qualified Code(s): L89.154 - Pressure ulcer of sacral region, stage 4 (9) Transverse myelitis Status: Suspected - Plan Plan: Stage 4 Decubitus ulcers Bilateral ischial spine ulcers. Pt also has ulcer on L heel - wound care consulted - gen surg consulted, recommended continuing wound care, no surgical intervention required. - morphine and toradol for pain control Osteomyelitis of bilateral ischial spines - ID consulted, appreciate recs - Cont Vanc/Zosyn for 6 weeks with end date of 03/13/18. PICC in place - Awaiting recs for placement for long-term IV abx Septic shock, resolved 2/2 UTI. s/p epi and levophed gtt. - UCx wasn't sent from initial urine, repeat showed NGTD - BCx no growth Complicated UTI - On Vanc, Zosyn, this has likely resolved at this time. 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 However, neurology believes this is more likely due to West Nile Virus vs Transverse Myelitis - APS called from ED - cont wound care and broad spectrum ABX, gen surg consult - Neuro on board, appreciate recs Encephalopathy, resolved Appears resolved. Pt AOx3 with no tangential or abnormal speech or thought process. New areas of infarct on CT. MRI showed nonspecific multifocal white matter abnormalities. CTA [place] was unremarkable. Was likely delirium vs psychosis. - Continue risperdone and depakote - Neurology has been consulted, appreciate recs Dispo: CM on board to help place patient in SNF for IV abx for 6 weeks as well as wound care. <Ashley Dee - Last Filed: 01/31/18 06:41> Attending Addendum - Attending Addendum Date/Time: 01/31/18 0958 I personally evaluated the patient and discussed the management with Dr. Dee. I agree with the History, Examination, Assessment and Plan documented above with any addition or exceptions noted below. Patient stable at this time. Continue on residential antibiotic therapy and wound care. Working on placement. <Daniel Terry - Last Filed: 01/31/18 09:59>
[2018-01-31] MEDS: Divalproex Sodium 250 MG (DR) TAB PO SCH ×2 (09:42→20:46)
[2018-01-31] MEDS: Gabapentin 300 MG CAP PO SCH ×3 (09:42→20:46)
[2018-01-31] MEDS: Baclofen 10 MG TAB PO SCH ×3 (09:42→20:45)
[2018-01-31] MEDS: Vancomycin HCl 1 GM in Premix Bag 1 BAG IVPB SCH ×2 (09:48→20:48)
--- NOTE | 2018-01-31 11:00 | EKG ---
Test Reason : SEPSIS ALERT Blood Pressure : / mmHG Vent. Rate : 067 BPM Atrial Rate : 067 BPM P-R Int : 188 ms QRS Dur : 106 ms QT Int : 516 ms P-R-T Axes : 071 068 057 degrees QTc Int : 545 ms Normal sinus rhythm Prolonged QT Abnormal ECG Confirmed by SUNNI HOBBS M.D. ([id number]), avid editor FAY GUERRERO ([id number]) on 01/31/2018 11:00:31 AM Referred By: Confirmed By:SUNNI HOBBS M.D.
[2018-01-31] MEDS: buPROPion 75 MG TAB PO SCH ×2 (14:25→20:45)
[2018-01-31] MEDS: risperiDONE 1 MG TAB PO SCH ×2 (14:26→20:48)
[2018-01-31] MEDS: Naproxen 500 MG TAB PO SCH ×2 (14:27→20:47)
[2018-01-31] MEDS: Morphine IR 10 MG/5 ML UDCUP PO PRN (17:52)
[2018-01-31] MEDS: Sodium Hypochlorite 0.25% Solution 480 ML BOT TOP SCH (17:57)
[2018-01-31 20:47] LABS: Vancomycin, Trough 19.8 ug/mL
[2018-02-01] MEDS: Piperacillin/Tazobactam 3.375 GM in Sodium Chloride 0.9% 100 ML IVPB SCH ×5 (00:02→23:52)
[2018-02-01] MEDS: Ketorolac Tromethamine 30 MG/ML VIAL IVP PRN ×3 (00:03→15:41)
[2018-02-01] MEDS: Morphine IR 10 MG/5 ML UDCUP PO PRN (01:38)
--- NOTE | 2018-02-01 06:44 | PDOC.FM ---
- Subjective Subjective: Patient reports that he is continuing to have pain his lower back/pelvis due to his ulcers. He feels like the morphine isn't working as well anymore and wants something stronger. He denies any F/C, N/V, chest pain. - Objective MAR Reviewed: Yes Vital Signs & Weight: Vital Signs (12 hours) Temp Pulse Resp BP Pulse Ox 01/31/18 20:07 98.2 F 92 16 127/85 95 Weight Admit Weight 64.7 kg Weight 67.449 kg Most Recent Monitor Data Heart Rate from ECG 99 NIBP 123/84 NIBP BP-Mean 97 Respiration from ECG 16 SpO2 100 I&O: 01/30/18 01/31/18 02/01/18 06:59 06:59 06:59 Intake Total 2205 2515 2040 Output Total 3250 2400 2520 Balance -1045 115 -480 Result Diagrams: 01/27/18 04:33 01/27/18 04:33 <Ashley Dee - Last Filed: 02/01/18 06:42> - Objective Vital Signs & Weight: Vital Signs (12 hours) Temp Pulse Resp BP Pulse Ox 02/01/18 07:11 98.0 F 94 18 125/82 95 Weight Admit Weight 64.7 kg Weight 67.449 kg Most Recent Monitor Data Heart Rate from ECG 99 NIBP 123/84 NIBP BP-Mean 97 Respiration from ECG 16 SpO2 100 I&O: 01/31/18 02/01/18 02/02/18 06:59 06:59 06:59 Intake Total 2515 2040 Output Total 2400 2520 Balance 115 -480 Result Diagrams: 01/27/18 04:33 01/27/18 04:33 <Daniel Terry - Last Filed: 02/01/18 09:54> Phys Exam - Physical Examination Constitutional: NAD HEENT: moist MMs, sclera anicteric Respiratory: no wheezing, no rales, no rhonchi, clear to auscultation bilateral Cardiovascular: RRR, no significant murmur, no rub Gastrointestinal: soft, non-tender, no distention, positive bowel sounds paralysis of BLE, partial paralysis of BUE Psychiatric: normal affect, A&O x 3 Deviation from normal: dressings in place over L heel ulcer and bilateral ischial spine ulcers <Ashley Dee - Last Filed: 02/01/18 06:42> Dx/Plan (1) Septic shock Code(s): A41.9 - SEPSIS, UNSPECIFIED ORGANISM; R65.21 - SEVERE SEPSIS WITH SEPTIC SHOCK Status: Resolved (2) Complicated urinary tract infection Code(s): N39.0 - URINARY TRACT INFECTION, SITE NOT SPECIFIED Status: Acute (3) Acute encephalopathy Code(s): G93.40 - ENCEPHALOPATHY, UNSPECIFIED Status: Resolved (4) Anemia Code(s): D64.9 - ANEMIA, UNSPECIFIED Status: Acute Qualifiers: Anemia type: unspecified type Qualified Code(s): D64.9 - Anemia, unspecified (5) Colostomy in place Code(s): Z93.3 - COLOSTOMY STATUS Status: Acute (6) Paraplegia Code(s): G82.20 - PARAPLEGIA, UNSPECIFIED Status: Acute (7) Severe protein-calorie malnutrition Code(s): E43 - UNSPECIFIED SEVERE PROTEIN-CALORIE MALNUTRITION Status: Acute (8) Stage IV decubitus ulcer Code(s): L89.94 - PRESSURE ULCER OF UNSPECIFIED SITE, STAGE 4 Status: Acute Qualifiers: Pressure injury location: sacral region Qualified Code(s): L89.154 - Pressure ulcer of sacral region, stage 4 (9) Transverse myelitis Status: Suspected - Plan Plan: Stage IV Decubitus Ulcers Bilateral ischial spine ulcers. Pt also has ulcer on L heel - wound care consulted - gen surg consulted, recommended continuing wound care, no surgical intervention required. - morphine and toradol for pain control Osteomyelitis of bilateral ischial spines - ID consulted, appreciate recs - Cont Vanc/Zosyn for 6 weeks with end date of 03/13/18. PICC in place - Awaiting recs for placement for long-term IV abx Septic shock, resolved 2/2 UTI. s/p epi and levophed gtt. - UCx wasn't sent from initial urine, repeat showed NGTD - BCx no growth Complicated UTI - On Vanc, Zosyn, this has likely resolved at this time. 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 However, neurology believes this is more likely due to West Nile Virus vs Transverse Myelitis - APS called from ED - cont wound care and broad spectrum ABX, gen surg consult - Neuro on board, appreciate recs Encephalopathy, resolved Appears resolved. Pt AOx3 with no tangential or abnormal speech or thought process. New areas of infarct on CT. MRI showed nonspecific multifocal white matter abnormalities. CTA [place] was unremarkable. Was likely delirium vs psychosis. - Continue risperdone and depakote - Neurology has been consulted, appreciate recs Dispo: CM on board to help place patient in SNF for IV abx for 6 weeks as well as wound care. <Ashley Dee - Last Filed: 02/01/18 06:42> Attending Addendum - Attending Addendum Date/Time: 02/01/18952 I personally evaluated the patient and discussed the management with Dr. Dee. I agree with the History, Examination, Assessment and Plan documented above with any addition or exceptions noted below. Patient only complains today of increased pain in his wounds. We will work to modulate pain control regimen to get better control. Continue IV abx jail and await placement decision that is complicated by his lack of funding in the [facility] and goals to get back to [place]. <Daniel Terry - Last Filed: 02/01/18 09:54>
[2018-02-01] MEDS: Baclofen 10 MG TAB PO SCH ×3 (09:00→21:35)
[2018-02-01] MEDS: Gabapentin 300 MG CAP PO SCH ×3 (09:00→21:36)
[2018-02-01] MEDS: Naproxen 500 MG TAB PO SCH ×2 (09:01→21:37)
[2018-02-01] MEDS: Divalproex Sodium 250 MG (DR) TAB PO SCH (09:01)
[2018-02-01] MEDS: Vancomycin HCl 1 GM in Premix Bag 1 BAG IVPB SCH ×2 (09:05→21:38)
[2018-02-01] MEDS: Sodium Hypochlorite 0.25% Solution 480 ML BOT TOP SCH (09:06)
[2018-02-01] MEDS: buPROPion 75 MG TAB PO SCH ×2 (10:33→21:36)
[2018-02-01] MEDS: risperiDONE 1 MG TAB PO SCH ×2 (10:34→21:37)
[2018-02-01] MEDS: HYDROcodone/Acetaminophen 5/325 mg Tablet PO PRN ×2 (12:05→17:46)
[2018-02-02] MEDS: Piperacillin/Tazobactam 3.375 GM in Sodium Chloride 0.9% 100 ML IVPB SCH ×3 (08:22→20:21)
[2018-02-02] MEDS: Gabapentin 300 MG CAP PO SCH ×3 (08:23→20:19)
[2018-02-02] MEDS: Baclofen 10 MG TAB PO SCH ×3 (08:23→20:19)
[2018-02-02] MEDS: HYDROcodone/Acetaminophen 5/325 mg Tablet PO PRN ×3 (08:24→21:26)
--- NOTE | 2018-02-02 08:41 | PDOC.FM ---
- Subjective Subjective: Patient reports that his pain was better controlled with the norco and he felt like it lasted longer. He reports that he is eating well. Denies CP, F/C, N/V - Objective MAR Reviewed: Yes Vital Signs & Weight: Vital Signs (12 hours) Temp Pulse Resp BP Pulse Ox 02/02/18 07:17 97.6 F 65 16 145/90 H 96 Weight Admit Weight 64.7 kg Weight 67.449 kg Most Recent Monitor Data Heart Rate from ECG 99 NIBP 123/84 NIBP BP-Mean 97 Respiration from ECG 16 SpO2 100 I&O: 02/01/18 02/02/18 02/03/18 06:59 06:59 06:59 Intake Total 2040 623 Output Total 2520 2200 Balance -304 -4153 Result Diagrams: 01/27/18 04:33 01/27/18 04:33 <Ashley Dee - Last Filed: 02/02/18 08:39> - Objective Vital Signs & Weight: Vital Signs (12 hours) Temp Pulse Resp BP Pulse Ox 02/02/18 19:28 97.5 F L 79 18 134/86 95 Weight Admit Weight 64.7 kg Weight 67.449 kg Most Recent Monitor Data Heart Rate from ECG 99 NIBP 123/84 NIBP BP-Mean 97 Respiration from ECG 16 SpO2 100 I&O: 02/01/18 02/02/18 02/03/18 06:59 06:59 06:59 Intake Total 2040 623 Output Total 2520 2200 1550 Balance -610 -9228 -7726 Result Diagrams: 02/02/18 13:14 02/02/18 13:14 <Lillian Guevara - Last Filed: 02/02/18 21:07> Phys Exam - Physical Examination Constitutional: NAD HEENT: moist MMs, sclera anicteric Respiratory: no wheezing, no rales, no rhonchi, clear to auscultation bilateral Cardiovascular: RRR, no significant murmur, no rub Gastrointestinal: soft, non-tender, no distention, positive bowel sounds paralysis of BLE and partial paralysis of BUE Psychiatric: normal affect, A&O x 3 Deviation from normal: dressings in place over bilateral ischial spine decubitus ulcers and L heel <Ashley Dee - Last Filed: 02/02/18 08:39> Dx/Plan (1) Septic shock Code(s): A41.9 - SEPSIS, UNSPECIFIED ORGANISM; R65.21 - SEVERE SEPSIS WITH SEPTIC SHOCK Status: Resolved (2) Complicated urinary tract infection Code(s): N39.0 - URINARY TRACT INFECTION, SITE NOT SPECIFIED Status: Acute (3) Acute encephalopathy Code(s): G93.40 - ENCEPHALOPATHY, UNSPECIFIED Status: Resolved (4) Anemia Code(s): D64.9 - ANEMIA, UNSPECIFIED Status: Acute Qualifiers: Anemia type: unspecified type Qualified Code(s): D64.9 - Anemia, unspecified (5) Colostomy in place Code(s): Z93.3 - COLOSTOMY STATUS Status: Acute (6) Paraplegia Code(s): G82.20 - PARAPLEGIA, UNSPECIFIED Status: Acute (7) Severe protein-calorie malnutrition Code(s): E43 - UNSPECIFIED SEVERE PROTEIN-CALORIE MALNUTRITION Status: Acute (8) Stage IV decubitus ulcer Code(s): L89.94 - PRESSURE ULCER OF UNSPECIFIED SITE, STAGE 4 Status: Acute Qualifiers: Pressure injury location: sacral region Qualified Code(s): L89.154 - Pressure ulcer of sacral region, stage 4 (9) Transverse myelitis Status: Suspected - Plan Plan: Stage IV Decubitus Ulcers Bilateral ischial spine ulcers. Pt also has ulcer on L heel - wound care consulted - gen surg consulted, recommended continuing wound care, no surgical intervention required. - norco and toradol for pain control Osteomyelitis of bilateral ischial spines - ID consulted, appreciate recs - Cont Vanc/Zosyn for 6 weeks with end date of 03/13/18. PICC in place - Awaiting recs for placement for long-term IV abx Septic shock, resolved 2/2 UTI. s/p epi and levophed gtt. - UCx wasn't sent from initial urine, repeat showed NGTD - BCx no growth Complicated UTI - On Vanc, Zosyn, this has likely resolved at this time. 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 However, neurology believes this is more likely due to West Nile Virus vs Transverse Myelitis - APS called from ED - cont wound care and broad spectrum ABX, gen surg consult - Neuro on board, appreciate recs Encephalopathy, resolved Appears resolved. Pt AOx3 with no tangential or abnormal speech or thought process or hallucinations. New areas of infarct on CT. MRI showed nonspecific multifocal white matter abnormalities. CTA [place] was unremarkable. Was likely delirium vs psychosis. - Continue risperdone. D/C'd depakote due to it being subtheraputic and pt doing well. Pt will likely need psychiatry outpatient. - Neurology has been consulted, appreciate recs Dispo: CM on board to help place patient in SNF for IV abx for 6 weeks as well as wound care. <Ashley Dee - Last Filed: 02/02/18 08:39> Attending Addendum - Attending Addendum Date/Time: 02/02/182102 I personally evaluated the patient and discussed the management with Dr. Dee I agree with the History, Examination, Assessment and Plan documented above with any addition or exceptions noted below. 37 yo male admitted for osteomyelitis HD#11 Patient doing well. No complaints. Denies fever but reports occasional chills 1. Osteomyelitis: Continue antibiotics. Unable to identify pathogen. Gen surg and ID following 2. stage IV decub: wound care following, gen surg following 3. Paralysis: Unsure etiology. Has been present for 1 year. Affecting bilaterally waist down and LUE. Related to infectious etiology. Neuro following. Awaiting placement in home state [facility] <Lillian Guevara - Last Filed: 02/02/18 21:07>
[2018-02-02] MEDS: Naproxen 500 MG TAB PO SCH ×2 (09:00→20:19)
[2018-02-02] MEDS: buPROPion 75 MG TAB PO SCH ×2 (09:00→20:20)
[2018-02-02] MEDS: risperiDONE 1 MG TAB PO SCH ×2 (09:00→20:20)
[2018-02-02] MEDS ORDERED: Vancomycin HCl 1 GM in Premix Bag 1 BAG IVPB SCH ×2 (10:00→21:00)
[2018-02-02] MEDS: Vancomycin HCl 1 GM in Premix Bag 1 BAG IVPB SCH (11:43)
[2018-02-02] MEDS: Ketorolac Tromethamine 30 MG/ML VIAL IVP PRN ×2 (11:46→17:45)
[2018-02-02 13:56] LABS: ALT (SGPT) 9 U/L (8-55); AST (SGOT) 10 U/L (5-34); Albumin 2.8 g/dL (3.5-5.0); Alkaline Phosphatase 66 U/L (40-150); Anion Gap 11 mmol/L (10-20); BUN (Urea Nitrogen) 14 mg/dL (8.9-20.6); Bilirubin, Total Less than 0.2 mg/dL (0.2-1.2); Calc. Creatinine Clearance 131 mL/min (70-130); Calcium 8.9 mg/dL (7.8-10.44); Carbon Dioxide 25 mmol/L (22-29); Chloride 107 mmol/L (98-107); Estimated GFR-MDRD Greater than 90; Globulin 3.3 g/dL (2.4-3.5); Glucose 121 mg/dL (70-105); Potassium 4.2 mmol/L (3.5-5.1); Protein, Total 6.1 g/dL (6.0-8.3); Sodium 139 mmol/L (136-145)
[2018-02-02 14:06] LABS: #Eosinphils 0.5 thou/uL (0.0-0.7); #Lymphocytes 1.6 thou/uL (1.20-3.40); #Monocytes 0.7 thou/uL (0.11-0.59); #Neutrophils 12.7 thou/uL (1.40-6.50); %Basophils 0.3 % (0.0-1.0); %Lymphocytes 10.1 % (21.0-51.0); %Monocytes 4.6 % (0.0-10.0); %Neutrophils 82.1 % (42.0-75.0); Hemoglobin 9.1 g/dL (14.0-18.0); Hypochromia SLIGHT = 6-15 cells (100X) (0-5/hpf); MDiff Complete? YES; Mean Corpuscular HGB CONC 29.5 g/dL (32.0-36.0); Mean Corpuscular Volume 81.2 fL (78.0-98.0); Mean Platelet Volume 6.8 fL (7.4-10.4); Platelet Count 549 thou/uL (130-400); Polychromasia SLIGHT = 2-3 cells (100X) (0-2/hpf); RBC Distribution Width 19.3 % (11.5-14.5); Schistocytes SLIGHT = 2-5 cells (100X) (0-1/hpf); White Blood Cell (WBC) Count 15.4 thou/uL (4.8-10.8)
[2018-02-02] MEDS: Sodium Hypochlorite 0.25% Solution 480 ML BOT TOP SCH (19:28)
[2018-02-02 20:23] LABS: Vancomycin, Trough 23.5 ug/mL
[2018-02-03] MEDS: Ketorolac Tromethamine 30 MG/ML VIAL IVP PRN ×2 (00:12→08:27)
[2018-02-03] MEDS: Piperacillin/Tazobactam 3.375 GM in Sodium Chloride 0.9% 100 ML IVPB SCH ×4 (02:31→21:23)
[2018-02-03] MEDS: HYDROcodone/Acetaminophen 5/325 mg Tablet PO PRN ×4 (03:18→21:25)
[2018-02-03] MEDS: Baclofen 10 MG TAB PO SCH ×3 (08:25→21:24)
[2018-02-03] MEDS: buPROPion 75 MG TAB PO SCH ×2 (08:25→21:24)
[2018-02-03] MEDS: Gabapentin 300 MG CAP PO SCH ×3 (08:25→21:24)
[2018-02-03] MEDS: Naproxen 500 MG TAB PO SCH ×2 (08:26→21:25)
[2018-02-03] MEDS: risperiDONE 1 MG TAB PO SCH ×2 (08:27→21:25)
--- NOTE | 2018-02-03 08:34 | PDOC.FM ---
- Subjective Subjective: Patient reports that the pain medication is working well. He reports that he feels like he can't hold his breath as long, but denies overt SOB. He denies N/V , CP. He states that he was switched to an indwelling quispe from self-caths due to irritation and possibly infection b/c he wasn't doing them frequently enough. - Objective MAR Reviewed: Yes Vital Signs & Weight: Vital Signs (12 hours) Temp Pulse Resp BP Pulse Ox 02/03/18 07:25 97.8 F 86 18 125/84 94 L Weight Admit Weight 64.7 kg Weight 67.449 kg Most Recent Monitor Data Heart Rate from ECG 99 NIBP 123/84 NIBP BP-Mean 97 Respiration from ECG 16 SpO2 100 I&O: 02/02/18 02/03/18 02/04/18 06:59 06:59 06:59 Intake Total 623 1050 Output Total 2200 3050 Balance -157 -1999 Result Diagrams: 02/02/18 13:14 02/02/18 13:14 <Ashley Dee - Last Filed: 02/03/18 08:32> - Objective Vital Signs & Weight: Vital Signs (12 hours) Temp Pulse Resp BP Pulse Ox 02/08/18 19:28 98.1 F 96 16 124/81 94 L Weight Admit Weight 64.7 kg Weight 67.449 kg Most Recent Monitor Data Heart Rate from ECG 99 NIBP 123/84 NIBP BP-Mean 97 Respiration from ECG 16 SpO2 100 I&O: 02/07/18 02/08/18 02/09/18 07:59 06:59 06:59 Intake Total 2200 Output Total 5350 Balance -3150 Result Diagrams: 02/02/18 13:14 02/02/18 13:14 <Lillian Guevara - Last Filed: 02/08/18 20:51> Phys Exam - Physical Examination Constitutional: NAD HEENT: moist MMs, sclera anicteric Respiratory: no wheezing, no rales, no rhonchi, clear to auscultation bilateral Cardiovascular: RRR, no significant murmur, no rub Gastrointestinal: soft, non-tender, no distention, positive bowel sounds 1+ edema in BLE paralysis of LE and partial paralysis of UE Psychiatric: normal affect, A&O x 3 Deviation from normal: dressings in place over decubitus ulcers and L heel wound <Ashley Dee - Last Filed: 02/03/18 08:32> Dx/Plan (1) Osteomyelitis Code(s): M86.9 - OSTEOMYELITIS, UNSPECIFIED Status: Acute Qualifiers: Osteomyelitis location: other site (2) Stage IV decubitus ulcer Code(s): L89.94 - PRESSURE ULCER OF UNSPECIFIED SITE, STAGE 4 Status: Acute Qualifiers: Pressure injury location: sacral region Qualified Code(s): L89.154 - Pressure ulcer of sacral region, stage 4 (3) Septic shock Code(s): A41.9 - SEPSIS, UNSPECIFIED ORGANISM; R65.21 - SEVERE SEPSIS WITH SEPTIC SHOCK Status: Resolved (4) Complicated urinary tract infection Code(s): N39.0 - URINARY TRACT INFECTION, SITE NOT SPECIFIED Status: Acute (5) Acute encephalopathy Code(s): G93.40 - ENCEPHALOPATHY, UNSPECIFIED Status: Resolved (6) Anemia Code(s): D64.9 - ANEMIA, UNSPECIFIED Status: Acute Qualifiers: Anemia type: unspecified type Qualified Code(s): D64.9 - Anemia, unspecified (7) Colostomy in place Code(s): Z93.3 - COLOSTOMY STATUS Status: Acute (8) Paraplegia Code(s): G82.20 - PARAPLEGIA, UNSPECIFIED Status: Acute (9) Severe protein-calorie malnutrition Code(s): E43 - UNSPECIFIED SEVERE PROTEIN-CALORIE MALNUTRITION Status: Acute (10) Transverse myelitis Status: Suspected - Plan Plan: Stage IV Decubitus Ulcers Bilateral ischial spine ulcers. Pt also has ulcer on L heel - wound care consulted - gen surg consulted, recommended continuing wound care, no surgical intervention required. - norco and toradol for pain control Osteomyelitis of bilateral ischial spines - ID consulted, appreciate recs - Cont Vanc/Zosyn for 6 weeks with end date of 03/13/18. PICC in place - Awaiting recs for placement for long-term IV abx Septic shock, resolved 2/2 UTI. s/p epi and levophed gtt. - UCx wasn't sent from initial urine, repeat showed NGTD - BCx no growth Complicated UTI - On Vanc, Zosyn, this has likely resolved at this time. 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 However, neurology believes this is more likely due to West Nile Virus vs Transverse Myelitis - APS called from ED - cont wound care and broad spectrum ABX, gen surg consult - Neuro on board, appreciate recs - Pt may need long-term placement at facility with good wound care Encephalopathy, resolved Appears resolved. Pt AOx3 with no tangential or abnormal speech or thought process or hallucinations. New areas of infarct on CT. MRI showed nonspecific multifocal white matter abnormalities. CTA [place] was unremarkable. Was likely delirium vs psychosis. - Continue risperdone. D/C'd depakote due to it being subtheraputic and pt doing well. Pt will likely need psychiatry outpatient. - Neurology has been consulted, appreciate recs Dispo: CM on board to help place patient in SNF for IV abx for 6 weeks as well as wound care. <Ashley Dee - Last Filed: 02/03/18 08:32> Attending Addendum - Attending Addendum Date/Time: 02/03/18 1050 I personally evaluated the patient and discussed the management with Dr. Dee I agree with the History, Examination, Assessment and Plan documented above with any addition or exceptions noted below. 37 yo male admitted for osteomyelitis HD#12 Doing well. Pain controlled. 1. Osteomyelitis: Continue antibiotics. Unable to identify pathogen. ID following 2. stage IV decub: wound care following, gen surg following 3. Pain control: Continue to adjust. Wean opioids as able. Awaiting placement in home state [facility] <Lillian Guevara - Last Filed: 02/08/18 20:51>
[2018-02-03] MEDS: Vancomycin HCl 750 MG in Sodium Chloride 0.9% 250 ML 250 ML IVPB SCH ×2 (09:54→22:56)
[2018-02-03] MEDS: Sodium Hypochlorite 0.25% Solution 480 ML BOT TOP SCH (11:51)
[2018-02-04] MEDS: Piperacillin/Tazobactam 3.375 GM in Sodium Chloride 0.9% 100 ML IVPB SCH ×4 (01:45→21:07)
--- NOTE | 2018-02-04 08:45 | PDOC.FM ---
- Subjective Subjective: Pt reports that when he goes to take a sip of water, he feels like he can't hold his breath as long as previously. He was given an incentive spirometer yesterday for this reason and states that he has been working with it and has seen some improvement. He denies any overt SOB at rest, denies chest pain, palpitations. He reports that his pain has been controlled. - Objective MAR Reviewed: Yes Vital Signs & Weight: Vital Signs (12 hours) Temp Pulse Resp BP Pulse Ox 02/04/18 08:04 97.6 F 90 16 125/80 98 02/04/18 07:22 97.6 F 90 16 125/80 94 L 02/03/18 21:27 98.1 F 91 18 118/76 94 L Weight Admit Weight 64.7 kg Weight 67.449 kg Most Recent Monitor Data Heart Rate from ECG 99 NIBP 123/84 NIBP BP-Mean 97 Respiration from ECG 16 SpO2 100 I&O: 02/03/18 02/04/18 02/05/18 06:59 06:59 06:59 Intake Total 1050 2097 Output Total 3050 4130 Balance -1999 Result Diagrams: 02/02/18 13:14 02/02/18 13:14 <Ashley Dee - Last Filed: 02/04/18 08:39> - Objective Vital Signs & Weight: Vital Signs (12 hours) Temp Pulse Resp BP Pulse Ox 02/08/18 19:28 98.1 F 96 16 124/81 94 L Weight Admit Weight 64.7 kg Weight 67.449 kg Most Recent Monitor Data Heart Rate from ECG 99 NIBP 123/84 NIBP BP-Mean 97 Respiration from ECG 16 SpO2 100 I&O: 02/07/18 02/08/18 02/09/18 07:59 06:59 06:59 Intake Total 2200 Output Total 5350 Balance -3150 Result Diagrams: 02/02/18 13:14 02/02/18 13:14 <Lillian Guevara - Last Filed: 02/08/18 20:54> Phys Exam - Physical Examination Constitutional: NAD HEENT: moist MMs, sclera anicteric Respiratory: no wheezing, no rales, no rhonchi, clear to auscultation bilateral Cardiovascular: RRR, no significant murmur, no rub Gastrointestinal: soft, non-tender, no distention, positive bowel sounds incomplete quadriplegia Psychiatric: normal affect, A&O x 3 <Ashley Dee - Last Filed: 02/04/18 08:39> Dx/Plan (1) Osteomyelitis Code(s): M86.9 - OSTEOMYELITIS, UNSPECIFIED Status: Acute Qualifiers: Osteomyelitis location: other site (2) Stage IV decubitus ulcer Code(s): L89.94 - PRESSURE ULCER OF UNSPECIFIED SITE, STAGE 4 Status: Acute Qualifiers: Pressure injury location: sacral region Qualified Code(s): L89.154 - Pressure ulcer of sacral region, stage 4 (3) Septic shock Code(s): A41.9 - SEPSIS, UNSPECIFIED ORGANISM; R65.21 - SEVERE SEPSIS WITH SEPTIC SHOCK Status: Resolved (4) Complicated urinary tract infection Code(s): N39.0 - URINARY TRACT INFECTION, SITE NOT SPECIFIED Status: Acute (5) Acute encephalopathy Code(s): G93.40 - ENCEPHALOPATHY, UNSPECIFIED Status: Resolved (6) Anemia Code(s): D64.9 - ANEMIA, UNSPECIFIED Status: Acute Qualifiers: Anemia type: unspecified type Qualified Code(s): D64.9 - Anemia, unspecified (7) Colostomy in place Code(s): Z93.3 - COLOSTOMY STATUS Status: Acute (8) Paraplegia Code(s): G82.20 - PARAPLEGIA, UNSPECIFIED Status: Acute (9) Severe protein-calorie malnutrition Code(s): E43 - UNSPECIFIED SEVERE PROTEIN-CALORIE MALNUTRITION Status: Acute (10) Transverse myelitis Status: Suspected - Plan Plan: Stage IV Decubitus Ulcers Bilateral ischial spine ulcers. Pt also has ulcer on L heel - wound care consulted - gen surg consulted, recommended continuing wound care, no surgical intervention required. - norco and excedrin for pain control Osteomyelitis of bilateral ischial spines - ID consulted, appreciate recs - Cont Vanc/Zosyn for 6 weeks with end date of 03/13/18. PICC in place - Awaiting recs for placement for long-term IV abx Septic shock, resolved 2/2 UTI. s/p epi and levophed gtt. - UCx wasn't sent from initial urine, repeat showed NGTD - BCx no growth Complicated UTI - On Vanc, Zosyn, this has likely resolved at this time. 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 However, neurology believes this is more likely due to West Nile Virus vs Transverse Myelitis - APS called from ED - cont wound care and broad spectrum ABX, gen surg consult - Neuro on board, appreciate recs - Pt may need long-term placement at facility with good wound care Encephalopathy, resolved Appears resolved. Pt AOx3 with no tangential or abnormal speech or thought process or hallucinations. New areas of infarct on CT. MRI showed nonspecific multifocal white matter abnormalities. CTA [place] was unremarkable. Was likely delirium vs psychosis. - Continue risperdone. D/C'd depakote due to it being subtheraputic and pt doing well. Pt will likely need psychiatry outpatient. - Neurology has been consulted, appreciate recs Dispo: CM on board to help place patient in SNF for IV abx for 6 weeks as well as wound care. <Ashley Dee - Last Filed: 02/04/18 08:39> Attending Addendum - Attending Addendum Date/Time: 02/04/18 6881 I personally evaluated the patient and discussed the management with Dr. Dee I agree with the History, Examination, Assessment and Plan documented above with any addition or exceptions noted below. 37 yo male admitted for osteomyelitis HD#13 Stable. No change. 1. Osteomyelitis: Continue IV antibiotics until 03/13/18. ID following. Intermittent Vanc trough and labs. 2. stage IV decub: wound care following, gen surg following 3. Pain control: Continue to adjust. Wean opioids as able. Awaiting placement in home state [facility] <Lillian Guevara - Last Filed: 02/08/18 20:54>
[2018-02-04] MEDS: Baclofen 10 MG TAB PO SCH ×3 (08:50→21:14)
[2018-02-04] MEDS: buPROPion 75 MG TAB PO SCH ×2 (08:53→21:14)
[2018-02-04] MEDS: Gabapentin 300 MG CAP PO SCH ×3 (08:54→21:15)
[2018-02-04] MEDS: Naproxen 500 MG TAB PO SCH ×2 (08:55→21:15)
[2018-02-04] MEDS: risperiDONE 1 MG TAB PO SCH ×2 (08:56→21:15)
[2018-02-04] MEDS: HYDROcodone/Acetaminophen 5/325 mg Tablet PO PRN ×3 (08:58→21:16)
[2018-02-04] MEDS: Sodium Hypochlorite 0.25% Solution 480 ML BOT TOP SCH (08:59)
[2018-02-04] MEDS: Vancomycin HCl 750 MG in Sodium Chloride 0.9% 250 ML 250 ML IVPB SCH ×2 (10:21→22:12)
[2018-02-04] MEDS ORDERED: Morphine 4 MG/ML VIAL SLOW IVP SCH (17:15)
--- NOTE | 2018-02-04 20:15 | PRG ---
DATE OF SERVICE: 02/04/2018 SUBJECTIVE: Mr. Lamar is not very talkative today. PHYSICAL EXAMINATION: VITAL SIGNS: T-max of 98.1, blood pressure 120/80, pulse 90, respirations 16, O2 sat 98%. LUNGS: Clear. ABDOMEN: Soft. He is doing self-intermittent catheterization. The wounds are about the same. LABORATORY DATA: White cell count is at 15.4, hemoglobin 9.1, platelets 549. IMAGING STUDY: Showed myositis, cellulitis. No abscess, evidence of chronic or any acute osteomyeli tis. ASSESSMENT AND DISCUSSION: Neurodegenerative condition with incomplete quadriplegia, multiple decubi tus ulcers, stage IV, treated in the past, multiple modalities with refractory status probably relate d to his social condition and unstable leaving arrangements plus frequent moves, also associated leuk ocytosis and neurogenic bladder. Patient will continue with broad spectrum antimicrobial therapy and does not look like he is going to undergo any surgical debridement at this point in time. He is cur rently receiving I believe Zosyn and vancomycin. We do not have any microbiology guidance and will p sandra for vancomycin and Invanz or similar regimen for discharge planning or discontinue the Zosyn and vancomycin regimen. Disposition is going to be difficult because his insurance is in [place], is going to have to be tra nsferred to a skilled unit there from here. Apparently, patient was despondent because of bed and wa s thinking of signing out against medical advice and drive himself up to [place]. I do not think it is safe to just discharge him on oral medications.
[2018-02-04 20:17] LABS: Vancomycin, Trough 18.9 ug/mL
[2018-02-05] MEDS: Piperacillin/Tazobactam 3.375 GM in Sodium Chloride 0.9% 100 ML IVPB SCH ×4 (02:29→20:17)
[2018-02-05] MEDS: HYDROcodone/Acetaminophen 5/325 mg Tablet PO PRN ×4 (03:36→20:23)
[2018-02-05] MEDS: buPROPion 75 MG TAB PO SCH ×2 (08:28→20:16)
[2018-02-05] MEDS: Baclofen 10 MG TAB PO SCH ×3 (08:28→20:17)
[2018-02-05] MEDS: Naproxen 500 MG TAB PO SCH ×2 (08:29→20:16)
[2018-02-05] MEDS: risperiDONE 1 MG TAB PO SCH ×2 (08:29→20:16)
[2018-02-05] MEDS: Gabapentin 300 MG CAP PO SCH ×3 (08:29→20:17)
[2018-02-05] MEDS: Sodium Hypochlorite 0.25% Solution 480 ML BOT TOP SCH (08:29)
--- NOTE | 2018-02-05 08:44 | PDOC.FM ---
- Subjective Subjective: Patient reports pain with ulcer dressing changes yesterday. He reports that his SOB has improved. He denies any chest pain, cough, fever, chills. - Objective MAR Reviewed: Yes Vital Signs & Weight: Vital Signs (12 hours) Temp Pulse Resp BP Pulse Ox 02/05/18 07:20 97.8 F 81 14 120/81 95 Weight Admit Weight 64.7 kg Weight 67.449 kg Most Recent Monitor Data Heart Rate from ECG 99 NIBP 123/84 NIBP BP-Mean 97 Respiration from ECG 16 SpO2 100 I&O: 02/04/18 02/05/18 02/06/18 06:59 06:59 06:59 Intake Total 2097 3085 Output Total 5780 8420 Balance -2568 -2435 Result Diagrams: 02/02/18 13:14 02/02/18 13:14 <Ashley Dee - Last Filed: 02/05/18 08:40> - Objective Vital Signs & Weight: Vital Signs (12 hours) Temp Pulse Resp BP Pulse Ox 02/08/18 19:28 98.1 F 96 16 124/81 94 L Weight Admit Weight 64.7 kg Weight 67.449 kg Most Recent Monitor Data Heart Rate from ECG 99 NIBP 123/84 NIBP BP-Mean 97 Respiration from ECG 16 SpO2 100 I&O: 02/07/18 02/08/18 02/09/18 07:59 06:59 06:59 Intake Total 2200 Output Total 5350 Balance -3150 Result Diagrams: 02/02/18 13:14 02/02/18 13:14 <Lillian Guevara - Last Filed: 02/08/18 20:56> Phys Exam - Physical Examination Constitutional: NAD HEENT: moist MMs, sclera anicteric Respiratory: no wheezing, no rales, no rhonchi, clear to auscultation bilateral Cardiovascular: RRR, no significant murmur, no rub Gastrointestinal: soft, non-tender, no distention, positive bowel sounds incomplete quadriplegic Psychiatric: normal affect, A&O x 3 Deviation from normal: 3 erythematous annular lesions around adhesive from ostomy bag <Ashley Dee - Last Filed: 02/05/18 08:40> Dx/Plan (1) Osteomyelitis Code(s): M86.9 - OSTEOMYELITIS, UNSPECIFIED Status: Acute Qualifiers: Osteomyelitis location: other site (2) Stage IV decubitus ulcer Code(s): L89.94 - PRESSURE ULCER OF UNSPECIFIED SITE, STAGE 4 Status: Acute Qualifiers: Pressure injury location: sacral region Qualified Code(s): L89.154 - Pressure ulcer of sacral region, stage 4 (3) Septic shock Code(s): A41.9 - SEPSIS, UNSPECIFIED ORGANISM; R65.21 - SEVERE SEPSIS WITH SEPTIC SHOCK Status: Resolved (4) Complicated urinary tract infection Code(s): N39.0 - URINARY TRACT INFECTION, SITE NOT SPECIFIED Status: Acute (5) Acute encephalopathy Code(s): G93.40 - ENCEPHALOPATHY, UNSPECIFIED Status: Resolved (6) Anemia Code(s): D64.9 - ANEMIA, UNSPECIFIED Status: Acute Qualifiers: Anemia type: unspecified type Qualified Code(s): D64.9 - Anemia, unspecified (7) Colostomy in place Code(s): Z93.3 - COLOSTOMY STATUS Status: Acute (8) Paraplegia Code(s): G82.20 - PARAPLEGIA, UNSPECIFIED Status: Acute (9) Severe protein-calorie malnutrition Code(s): E43 - UNSPECIFIED SEVERE PROTEIN-CALORIE MALNUTRITION Status: Acute (10) Transverse myelitis Status: Suspected - Plan Plan: Stage IV Decubitus Ulcers Bilateral ischial spine ulcers. Pt also has ulcer on L heel - wound care consulted - gen surg consulted, recommended continuing wound care, no surgical intervention required. - norco and excedrin for pain control, morphine during dressing changes Osteomyelitis of bilateral ischial spines - ID consulted, appreciate recs - Cont Vanc/Zosyn for 6 weeks with end date of 03/13/18. PICC in place - Awaiting recs for placement for long-term IV abx Septic shock, resolved 2/2 UTI. s/p epi and levophed gtt. - UCx wasn't sent from initial urine, repeat showed NGTD - BCx no growth Complicated UTI - On Vanc, Zosyn, this has likely resolved at this time. 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 However, neurology believes this is more likely due to West Nile Virus vs Transverse Myelitis - APS called from ED - cont wound care and broad spectrum ABX, gen surg consult - Neuro on board, appreciate recs - Pt may need long-term placement at facility with good wound care Encephalopathy, resolved Appears resolved. Pt AOx3 with no tangential or abnormal speech or thought process or hallucinations. New areas of infarct on CT. MRI showed nonspecific multifocal white matter abnormalities. CTA [place] was unremarkable. Was likely delirium vs psychosis. - Continue risperdone. D/C'd depakote due to it being subtheraputic and pt doing well. Pt will likely need psychiatry outpatient. - Neurology has been consulted, appreciate recs Dispo: CM on board to help place patient in SNF for IV abx for 6 weeks as well as wound care. <Ashley Dee - Last Filed: 02/05/18 08:40> Attending Addendum - Attending Addendum Date/Time: 02/05/18 5123 I personally evaluated the patient and discussed the management with Dr. Dee I agree with the History, Examination, Assessment and Plan documented above with any addition or exceptions noted below. 37 yo male admitted for osteomyelitis HD#14 Noticing skin irritation at ostomy site due to ostomy material 1. Osteomyelitis: Continue IV antibiotics until 03/13/18. ID following. Intermittent Vanc trough and labs. 2. stage IV decub: wound care following, gen surg following 3. Pain control: Continue to adjust. Wean opioids as able. 4. Contact dermatitis: Monitor. Will see if ostomy care materials can be changed. Awaiting placement in home state [facility] <Lillian Guevara - Last Filed: 02/08/18 20:56>
[2018-02-05] MEDS: Vancomycin HCl 750 MG in Sodium Chloride 0.9% 250 ML 250 ML IVPB SCH ×2 (10:13→21:03)
--- NOTE | 2018-02-05 14:31 | PDOC.EVN ---
Event Note - Event Note Event Note: Transition of Care note: 37 y/o M with h/o paraplegia and recent hospitalization for osteomyelitis with incomplete treatment presented due to AMS. The patient was found to be in septic shock and was intubated and started on pressors on 01/22. The patient had a R IJ CVC on 01/22 as well. He was given Vanc and Zosyn and found to have 2 possible sources. His urine was positive for bacteria, nitrites, blood, and WBC's. He also was found to have stage IV bilateral ischial spine ulcers that were unkempt with maggots. His blood cultures did not grow anything. His initial urine was not sent for culture and the repeat urine a few days later did not grow anything. Pt developed an acute encephalopathy a few days into his hospitalization where he was paranoid and having hallucinations. His repeat brain CT on 01/24 showed multifocal, progressive white matter hypodensities indicating recent/acute ischemia. Brain MRI showed multifocal, white matter signal abnormalities. The patient was started on depakote and risperidone and his symptoms improved. Neuro was consulted and Dr. Moya said this was likely chronic from either Transverse Myelitis vs West Nile Virus, he did not think the patient had Guillian Manter. He was continued on the risperidone and the depakote was discontinued after a few days as the patient was improved and the medication was subtherapuetic. General surgery and wound care were consulted regarding the Stage IV ulcers and general surgery stated that there was nothing requiring an operation as far as debridement and recommended for wound care to continue following. Records were obtained from his prior hospitalization and it was found that he has been treated for osteo of his bilateral ischial spines, but left AMA after an incomplete course of treatment. Dr. Munoz with infectious diseases was consulted and he recommended continuing pt on broad spectrum abx with vanc and zosyn for 6 weeks. Stop date would be 03/13/18. Patient had his pain controlled initially with IV pain meds, but was able to be transitioned to norco and excedrin with morphine prn wound dressing changes. The patient is currently pending placement at a facility for IV abx until , wound care, and PT.
[2018-02-06] MEDS: Piperacillin/Tazobactam 3.375 GM in Sodium Chloride 0.9% 100 ML IVPB SCH ×4 (02:04→20:13)
[2018-02-06] MEDS: HYDROcodone/Acetaminophen 5/325 mg Tablet PO PRN ×4 (03:07→21:50)
--- NOTE | 2018-02-06 07:45 | PDOC.FM ---
- Subjective Subjective: No significant overnight events. Patient doing well. He states his pain is well controlled. He is mostly concerned about staying in hospital in [place] due to cost issues. - Objective MAR Reviewed: Yes Vital Signs & Weight: Vital Signs (12 hours) Temp Pulse Resp BP Pulse Ox 02/06/18 07:12 98.0 F 82 16 131/82 95 02/05/18 20:21 98.4 F 99 16 127/85 94 L Weight Admit Weight 64.7 kg Weight 67.449 kg Most Recent Monitor Data Heart Rate from ECG 99 NIBP 123/84 NIBP BP-Mean 97 Respiration from ECG 16 SpO2 100 I&O: 02/05/18 02/06/18 02/07/18 06:59 06:59 06:59 Intake Total 3085 3250 Output Total 8420 6880 Balance -5968 -8140 Result Diagrams: 02/02/18 13:14 02/02/18 13:14 EKG Reviewed by me: No Radiology Reviewed by me: No <Kaya Reyes - Last Filed: 02/06/18 19:18> - Objective Vital Signs & Weight: Vital Signs (12 hours) Temp Pulse Resp BP Pulse Ox 02/08/18 19:28 98.1 F 96 16 124/81 94 L Weight Admit Weight 64.7 kg Weight 67.449 kg Most Recent Monitor Data Heart Rate from ECG 99 NIBP 123/84 NIBP BP-Mean 97 Respiration from ECG 16 SpO2 100 I&O: 02/07/18 02/08/18 02/09/18 07:59 06:59 06:59 Intake Total 2200 Output Total 5350 Balance -3150 Result Diagrams: 02/02/18 13:14 02/02/18 13:14 <Lillian Guevara - Last Filed: 02/08/18 21:04> Phys Exam - Physical Examination Constitutional: NAD HEENT: moist MMs Neck: supple Respiratory: clear to auscultation bilateral Cardiovascular: RRR Gastrointestinal: soft Musculoskeletal: no edema, pulses present paraplegia Psychiatric: normal affect <Kaya Reyes - Last Filed: 02/06/18 19:18> Dx/Plan (1) Osteomyelitis Code(s): M86.9 - OSTEOMYELITIS, UNSPECIFIED Status: Acute Qualifiers: Osteomyelitis location: other site (2) Acute respiratory failure with hypoxia Code(s): J96.01 - ACUTE RESPIRATORY FAILURE WITH HYPOXIA Status: Resolved (3) Anemia Code(s): D64.9 - ANEMIA, UNSPECIFIED Status: Acute Qualifiers: Anemia type: unspecified type Qualified Code(s): D64.9 - Anemia, unspecified (4) Colostomy in place Code(s): Z93.3 - COLOSTOMY STATUS Status: Chronic (5) Complicated urinary tract infection Code(s): N39.0 - URINARY TRACT INFECTION, SITE NOT SPECIFIED Status: Resolved (6) Decubitus ulcer, stage 3 Code(s): L89.93 - PRESSURE ULCER OF UNSPECIFIED SITE, STAGE 3 Status: Acute (7) Encephalopathy acute Code(s): G93.40 - ENCEPHALOPATHY, UNSPECIFIED Status: Resolved (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 Code(s): Z86.69 - PERSONAL HISTORY OF DIS OF THE NERVOUS SYS AND SENSE ORGANS Status: Chronic (9) Hypomagnesemia Code(s): E83.42 - HYPOMAGNESEMIA Status: Resolved (10) Hyponatremia Code(s): E87.1 - HYPO-OSMOLALITY AND HYPONATREMIA Status: Resolved (11) Paraplegia Code(s): G82.20 - PARAPLEGIA, UNSPECIFIED Status: Acute (12) Severe protein-calorie malnutrition Code(s): E43 - UNSPECIFIED SEVERE PROTEIN-CALORIE MALNUTRITION Status: Acute (13) Stage IV decubitus ulcer Code(s): L89.94 - PRESSURE ULCER OF UNSPECIFIED SITE, STAGE 4 Status: Acute Qualifiers: Pressure injury location: sacral region Qualified Code(s): L89.154 - Pressure ulcer of sacral region, stage 4 (14) Urinary tract infection Status: Acute (15) Transverse myelitis Status: Suspected (16) Acute encephalopathy Code(s): G93.40 - ENCEPHALOPATHY, UNSPECIFIED Status: Resolved (17) Septic shock Code(s): A41.9 - SEPSIS, UNSPECIFIED ORGANISM; R65.21 - SEVERE SEPSIS WITH SEPTIC SHOCK Status: Resolved - Plan Plan: Stage IV Decubitus Ulcers - Bilateral ischial spine ulcers. Pt also has ulcer on L heel - wound care consulted; appreciate recs - gen surg consulted, recommended continuing wound care, no surgical intervention required. - norco and excedrin for pain control, morphine during dressing changes while hospitalized; spoke to patient about weaning of narcotics. He was agreeable. Will increase dose of gabapentin and decrease dose of norco. Osteomyelitis of bilateral ischial spines - ID consulted, appreciate recs - Cont Vanc/Zosyn for 6 weeks with end date of 03/13/18. PICC in place - Awaiting CM recs for placement for long-term IV abx Septic shock, resolved - 2/2 UTI. s/p epi and levophed gtt. - UCx wasn't sent from initial urine, repeat showed NGTD - BCx no growth Complicated UTI - On Vanc, Zosyn, this has likely resolved at this time. 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 However, neurology believes this is more likely due to West Nile Virus vs Transverse Myelitis - APS called from ED - cont wound care and broad spectrum ABX - Neuro on board, appreciate recs - Pending placement in [place] Encephalopathy, resolved - Appears resolved - New areas of infarct on CT. MRI showed nonspecific multifocal white matter abnormalities. CTA [place] was unremarkable. - Was likely delirium vs psychosis. - Continue risperdone. D/C'd depakote due to it being subtheraputic and pt doing well. Pt will likely need psychiatry outpatient. - Neurology has been consulted, appreciate recs Dispo: CM on board to help place patient in SNF for IV abx for 6 weeks as well as wound care. Pending placement. Case management has reached out to LTAC and NH in [place]. <Kaya Reyes - Last Filed: 02/06/18 19:18> Attending Addendum - Attending Addendum Date/Time: 02/06/18 6221 I personally evaluated the patient and discussed the management with Dr. Reyes I agree with the History, Examination, Assessment and Plan documented above with any addition or exceptions noted below. 37 yo male admitted for osteomyelitis HD#15 Noticing skin irritation at ostomy site due to ostomy material 1. Osteomyelitis: Continue IV antibiotics until 03/13/18. ID following. Intermittent Vanc trough and labs. 2. stage IV decub: wound care following, gen surg following 3. Pain control: Continue to adjust. Wean opioids as able. 4. Contact dermatitis: Monitor. Stable. Awaiting placement in home state [facility] <Lillian Guevara - Last Filed: 02/08/18 21:04>
[2018-02-06] MEDS: buPROPion 75 MG TAB PO SCH ×2 (07:54→20:11)
[2018-02-06] MEDS: Baclofen 10 MG TAB PO SCH ×3 (07:54→20:11)
[2018-02-06] MEDS: Naproxen 500 MG TAB PO SCH ×2 (07:54→20:11)
[2018-02-06] MEDS: Vancomycin HCl 750 MG in Sodium Chloride 0.9% 250 ML 250 ML IVPB SCH ×2 (07:55→21:52)
[2018-02-06] MEDS: Gabapentin 300 MG CAP PO SCH ×4 (07:59→23:10)
[2018-02-06 08:31] LABS: Vancomycin, Trough 16.9 ug/mL
[2018-02-06] MEDS: Sodium Hypochlorite 0.25% Solution 480 ML BOT TOP SCH (14:14)
[2018-02-06] MEDS: risperiDONE 1 MG TAB PO SCH (20:11)
[2018-02-07] MEDS: Morphine 4 MG/ML VIAL SLOW IVP PRN ×2 (01:36→09:58)
[2018-02-07] MEDS: Piperacillin/Tazobactam 3.375 GM in Sodium Chloride 0.9% 100 ML IVPB SCH ×4 (01:42→21:14)
[2018-02-07] MEDS: HYDROcodone/Acetaminophen 5/325 mg Tablet PO PRN ×3 (05:51→22:49)
--- NOTE | 2018-02-07 06:39 | PDOC.FM ---
- Subjective Subjective: Mr. Lamar is resting comfortably in bed, he reports some breakthrough pain after changing his pain med dosing yesterday. - Objective Vital Signs & Weight: Vital Signs (12 hours) Temp Pulse Resp BP Pulse Ox 02/06/18 19:57 98.1 F 94 16 130/88 94 L Weight Admit Weight 64.7 kg Weight 67.449 kg Most Recent Monitor Data Heart Rate from ECG 99 NIBP 123/84 NIBP BP-Mean 97 Respiration from ECG 16 SpO2 100 I&O: 02/05/18 02/06/18 02/07/18 06:59 06:59 06:59 Intake Total 3085 3250 1300 Output Total 8420 6880 5510 HipLogic -5719 -3631 -4210 Result Diagrams: 02/02/18 13:14 02/02/18 13:14 <Jm Miguel - Last Filed: 02/07/18 08:08> - Objective Vital Signs & Weight: Vital Signs (12 hours) Temp Pulse Resp BP Pulse Ox 02/07/18 07:13 98.2 F 86 16 133/87 95 Weight Admit Weight 64.7 kg Weight 67.449 kg Most Recent Monitor Data Heart Rate from ECG 99 NIBP 123/84 NIBP BP-Mean 97 Respiration from ECG 16 SpO2 100 I&O: 02/06/18 02/07/18 02/08/18 06:59 06:59 05:59 Intake Total 3250 1300 Output Total 6880 5510 800 Balance -3630 -4210 -800 Result Diagrams: 02/02/18 13:14 02/02/18 13:14 <Lillian Guevara - Last Filed: 02/08/18 21:06> Phys Exam - Physical Examination Constitutional: NAD HEENT: moist MMs Respiratory: no wheezing, no rales, no rhonchi, clear to auscultation bilateral Cardiovascular: RRR, no significant murmur, no rub Gastrointestinal: non-tender Musculoskeletal: pulses present paraplegic Psychiatric: normal affect Skin: no rash <Jm Miguel - Last Filed: 02/07/18 08:08> Dx/Plan (1) Osteomyelitis Code(s): M86.9 - OSTEOMYELITIS, UNSPECIFIED Status: Acute Qualifiers: Osteomyelitis location: other site (2) Stage IV decubitus ulcer Code(s): L89.94 - PRESSURE ULCER OF UNSPECIFIED SITE, STAGE 4 Status: Acute Qualifiers: Pressure injury location: sacral region Qualified Code(s): L89.154 - Pressure ulcer of sacral region, stage 4 (3) History of Guillain-[place] syndrome Code(s): Z86.69 - PERSONAL HISTORY OF DIS OF THE NERVOUS SYS AND SENSE ORGANS Status: Chronic (4) Transverse myelitis Status: Suspected (5) Acute encephalopathy Code(s): G93.40 - ENCEPHALOPATHY, UNSPECIFIED Status: Resolved (6) Complicated urinary tract infection Code(s): N39.0 - URINARY TRACT INFECTION, SITE NOT SPECIFIED Status: Resolved (7) Encephalopathy acute Code(s): G93.40 - ENCEPHALOPATHY, UNSPECIFIED Status: Resolved (8) Hypomagnesemia Code(s): E83.42 - HYPOMAGNESEMIA Status: Resolved (9) Hyponatremia Code(s): E87.1 - HYPO-OSMOLALITY AND HYPONATREMIA Status: Resolved (10) Septic shock Code(s): A41.9 - SEPSIS, UNSPECIFIED ORGANISM; R65.21 - SEVERE SEPSIS WITH SEPTIC SHOCK Status: Resolved - Plan Plan: Stage IV Decubitus Ulcers - Bilateral ischial spine ulcers. Pt also has ulcer on L heel - wound care consulted; appreciate recs - gen surg consulted, recommended continuing wound care, no surgical intervention required. - attempting to wean off of narcotics, gabapentin increased yesterday, norco decreased - norco and excedrin for pain control, morphine during dressing changes while hospitalized Osteomyelitis of bilateral ischial spines - ID consulted, appreciate recs - Cont Vanc/Zosyn for 6 weeks with end date of 03/13/18. PICC in place - Awaiting CM recs for placement for long-term IV abx Septic shock, resolved - 2/2 UTI. s/p epi and levophed gtt. - UCx wasn't sent from initial urine, repeat showed NGTD - BCx no growth Complicated UTI - On Vanc, Zosyn, this has likely resolved at this time. 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 However, neurology believes this is more likely due to West Nile Virus vs Transverse Myelitis - APS called from ED - cont wound care and broad spectrum ABX - Neuro on board, appreciate recs - Pending placement in [place] Encephalopathy, resolved - Appears resolved - New areas of infarct on CT. MRI showed nonspecific multifocal white matter abnormalities. CTA [place] was unremarkable. - Was likely delirium vs psychosis. - Continue risperdone. D/C'd depakote due to it being subtheraputic and pt doing well. Pt will likely need psychiatry outpatient. - Neurology has been consulted, appreciate recs Dispo: CM on board to help place patient in SNF for IV abx for 6 weeks as well as wound care. Pending placement. Case management has reached out to LTAC and NH in [place]. continue to encourage weaning narcotics <Jm Miguel - Last Filed: 02/07/18 08:08> Attending Addendum - Attending Addendum Date/Time: 02/07/18 1034 I personally evaluated the patient and discussed the management with Dr. Miguel I agree with the History, Examination, Assessment and Plan documented above with any addition or exceptions noted below. 37 yo male admitted for osteomyelitis HD#16 Noticing increase pain yesterday. 1. Osteomyelitis: Continue IV antibiotics until 03/13/18. ID following. Intermittent Vanc trough and labs. 2. stage IV decub: wound care following, gen surg following 3. Pain control: Continue to adjust. Wean opioids as able. Increase [place] 4. Contact dermatitis: Monitor. Stable. Awaiting placement in home state [facility] <Lillian Guevara - Last Filed: 02/08/18 21:06>
[2018-02-07] MEDS: buPROPion 75 MG TAB PO SCH ×2 (08:19→21:12)
[2018-02-07] MEDS: Baclofen 10 MG TAB PO SCH ×3 (08:19→21:13)
[2018-02-07] MEDS: risperiDONE 1 MG TAB PO SCH ×2 (08:20→21:13)
[2018-02-07] MEDS: Gabapentin 300 MG CAP PO SCH ×3 (08:20→21:12)
[2018-02-07] MEDS: Vancomycin HCl 750 MG in Sodium Chloride 0.9% 250 ML 250 ML IVPB SCH ×2 (08:25→22:31)
[2018-02-07] MEDS: Naproxen 500 MG TAB PO SCH (08:25)
[2018-02-07] MEDS: Sodium Hypochlorite 0.25% Solution 480 ML BOT TOP SCH (15:03)
[2018-02-07] MEDS ORDERED: Ketorolac Tromethamine 30 MG/ML VIAL IVP SCH (18:00)
[2018-02-08] MEDS: Piperacillin/Tazobactam 3.375 GM in Sodium Chloride 0.9% 100 ML IVPB SCH ×4 (01:11→20:13)
[2018-02-08] MEDS: HYDROcodone/Acetaminophen 5/325 mg Tablet PO PRN (04:02)
--- NOTE | 2018-02-08 06:56 | PDOC.FM ---
- Subjective Subjective: mr. spangler is resting comfortably in bed, he reports his pain is intolerable after his medication changes - Objective Vital Signs & Weight: Vital Signs (12 hours) Temp Pulse Resp BP Pulse Ox 02/07/18 21:11 97.7 F 90 16 123/77 94 L 02/07/18 20:00 94 L Weight Admit Weight 64.7 kg Weight 67.449 kg Most Recent Monitor Data Heart Rate from ECG 99 NIBP 123/84 NIBP BP-Mean 97 Respiration from ECG 16 SpO2 100 I&O: 02/06/18 02/07/18 02/08/18 06:59 06:59 05:59 Intake Total 3250 1300 1795 Output Total 6880 5510 4900 Balance -6955 -1859 -5984 Result Diagrams: 02/02/18 13:14 02/02/18 13:14 <Jm Miguel - Last Filed: 02/08/18 11:04> - Objective Vital Signs & Weight: Vital Signs (12 hours) Temp Pulse Resp BP Pulse Ox 02/08/18 07:11 98.3 F 88 16 127/83 96 Weight Admit Weight 64.7 kg Weight 67.449 kg Most Recent Monitor Data Heart Rate from ECG 99 NIBP 123/84 NIBP BP-Mean 97 Respiration from ECG 16 SpO2 100 I&O: 02/07/18 02/08/18 02/09/18 07:59 06:59 06:59 Intake Total Output Total 1100 Balance -1100 Result Diagrams: 02/02/18 13:14 02/02/18 13:14 <Lillian Guevara - Last Filed: 02/08/18 21:08> Phys Exam - Physical Examination Constitutional: NAD HEENT: PERRLA, moist MMs Respiratory: no wheezing, no rales, no rhonchi, clear to auscultation bilateral Cardiovascular: RRR, no significant murmur, no rub Gastrointestinal: soft, non-tender, no distention Musculoskeletal: no edema Psychiatric: normal affect Skin: no rash <Jm Miguel - Last Filed: 02/08/18 11:04> Dx/Plan (1) Osteomyelitis Code(s): M86.9 - OSTEOMYELITIS, UNSPECIFIED Status: Acute Qualifiers: Osteomyelitis location: other site (2) Stage IV decubitus ulcer Code(s): L89.94 - PRESSURE ULCER OF UNSPECIFIED SITE, STAGE 4 Status: Acute Qualifiers: Pressure injury location: sacral region Qualified Code(s): L89.154 - Pressure ulcer of sacral region, stage 4 (3) History of Guillain-[place] syndrome Code(s): Z86.69 - PERSONAL HISTORY OF DIS OF THE NERVOUS SYS AND SENSE ORGANS Status: Chronic (4) Transverse myelitis Status: Suspected (5) Acute encephalopathy Code(s): G93.40 - ENCEPHALOPATHY, UNSPECIFIED Status: Resolved (6) Complicated urinary tract infection Code(s): N39.0 - URINARY TRACT INFECTION, SITE NOT SPECIFIED Status: Resolved (7) Encephalopathy acute Code(s): G93.40 - ENCEPHALOPATHY, UNSPECIFIED Status: Resolved (8) Hypomagnesemia Code(s): E83.42 - HYPOMAGNESEMIA Status: Resolved (9) Hyponatremia Code(s): E87.1 - HYPO-OSMOLALITY AND HYPONATREMIA Status: Resolved (10) Septic shock Code(s): A41.9 - SEPSIS, UNSPECIFIED ORGANISM; R65.21 - SEVERE SEPSIS WITH SEPTIC SHOCK Status: Resolved - Plan Plan: Stage IV Decubitus Ulcers - Bilateral ischial spine ulcers. Pt also has ulcer on L heel - wound care consulted; appreciate recs - gen surg consulted, recommended continuing wound care, no surgical intervention required. - attempting to wean off of narcotics, gabapentin increased, norco decreased, naproxen - morphine during dressing changes while hospitalized Osteomyelitis of bilateral ischial spines - ID consulted, appreciate recs - Cont Vanc/Zosyn for 6 weeks with end date of 03/13/18. PICC in place - Awaiting recs for placement for long-term IV abx Septic shock, resolved - 2/2 UTI. s/p epi and levophed gtt. - UCx wasn't sent from initial urine, repeat showed NGTD - BCx no growth Complicated UTI - On Vanc, Zosyn, this has likely resolved at this time. 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 However, neurology believes this is more likely due to West Nile Virus vs Transverse Myelitis - APS called from ED - cont wound care and broad spectrum ABX - Neuro on board, appreciate recs - Pending placement in [place] Encephalopathy, resolved - Appears resolved - New areas of infarct on CT. MRI showed nonspecific multifocal white matter abnormalities. CTA [place] was unremarkable. - Was likely delirium vs psychosis. - Continue risperdone. D/C'd depakote due to it being subtheraputic and pt doing well. Pt will likely need psychiatry outpatient. - Neurology has been consulted, appreciate recs Dispo: CM on board to help place patient in SNF for IV abx for 6 weeks as well as wound care. Pending placement. Case management has reached out to LTAC and NH in [place]. continue to encourage weaning narcotics <Jm Miguel - Last Filed: 02/08/18 11:04> Attending Addendum - Attending Addendum Date/Time: 02/08/18 2139 I personally evaluated the patient and discussed the management with Dr. Miguel I agree with the History, Examination, Assessment and Plan documented above with any addition or exceptions noted below. 37 yo male admitted for osteomyelitis HD#17 Still with pain. 1. Osteomyelitis: Continue IV antibiotics until 03/13/18. ID following. Intermittent Vanc trough and labs. 2. stage IV decub: wound care following, gen surg following 3. Pain control: [place] 7.5 mg 4. Contact dermatitis: Monitor. Stable. Awaiting placement in home state [facility] <Lillian Guevara - Last Filed: 02/08/18 21:08>
[2018-02-08] MEDS: buPROPion 75 MG TAB PO SCH ×2 (08:28→20:10)
[2018-02-08] MEDS: Gabapentin 300 MG CAP PO SCH ×3 (08:28→20:10)
[2018-02-08] MEDS: Naproxen 500 MG TAB PO SCH ×2 (08:28→20:11)
[2018-02-08] MEDS: risperiDONE 1 MG TAB PO SCH ×2 (08:28→20:11)
[2018-02-08] MEDS: Baclofen 10 MG TAB PO SCH ×3 (08:28→20:11)
[2018-02-08 08:41] LABS: Vancomycin, Trough 12.6 ug/mL
[2018-02-08] MEDS: Vancomycin HCl 1 GM in Premix Bag 1 BAG IVPB SCH ×2 (09:28→20:13)
[2018-02-08] MEDS: Sodium Hypochlorite 0.25% Solution 480 ML BOT TOP SCH (11:43)
[2018-02-08] MEDS: HYDROcodone/Acetaminophen 7.5/325 mg Tablet PO PRN ×2 (12:33→20:11)
[2018-02-08] MEDS: Morphine 4 MG/ML VIAL SLOW IVP PRN (21:35)
[2018-02-09] MEDS: Piperacillin/Tazobactam 3.375 GM in Sodium Chloride 0.9% 100 ML IVPB SCH ×4 (02:06→21:00)
[2018-02-09] MEDS: HYDROcodone/Acetaminophen 10/325 mg Tablet PO PRN ×2 (02:13→08:04)
--- NOTE | 2018-02-09 07:25 | PDOC.FM ---
- Subjective Subjective: Pt reports marginally adequate pain control today. Pt verbalized desire to not be on pain medications but also desires to be comfortable. Otherwise no new complaints. Pt reports slightly increased sensation in legs. No fevers/chills. - Objective MAR Reviewed: Yes Vital Signs & Weight: Vital Signs (12 hours) Temp Pulse Resp BP Pulse Ox 02/09/18 07:15 97.6 F 81 16 121/77 95 02/08/18 20:00 94 L 02/08/18 19:28 98.1 F 96 16 124/81 94 L Weight Admit Weight 64.7 kg Weight 67.449 kg Most Recent Monitor Data Heart Rate from ECG 99 NIBP 123/84 NIBP BP-Mean 97 Respiration from ECG 16 SpO2 100 I&O: 02/08/18 02/09/18 02/10/18 06:59 06:59 06:59 Intake Total 2200 Output Total 8150 Balance -5950 Result Diagrams: 02/02/18 13:14 02/02/18 13:14 <Bill Aguilar - Last Filed: 02/09/18 08:57> - Objective Vital Signs & Weight: Vital Signs (12 hours) Temp Pulse Resp BP Pulse Ox 02/09/18 19:56 97.8 F 85 20 121/77 96 Weight Admit Weight 64.7 kg Weight 67.449 kg Most Recent Monitor Data Heart Rate from ECG 99 NIBP 123/84 NIBP BP-Mean 97 Respiration from ECG 16 SpO2 100 I&O: 02/08/18 02/09/18 02/10/18 06:59 06:59 06:59 Intake Total 2200 2000 Output Total 8150 5000 Balance -5950 -3000 Result Diagrams: 02/09/18 12:00 02/09/18 12:00 <Darrell Burton - Last Filed: 02/09/18 20:39> Phys Exam - Physical Examination Constitutional: NAD HEENT: moist MMs, sclera anicteric Neck: no JVD, supple Respiratory: no wheezing, clear to auscultation bilateral Cardiovascular: RRR, no significant murmur Gastrointestinal: soft, non-tender Musculoskeletal: no edema, pulses present bilateral paralysis of LEs Psychiatric: normal affect, A&O x 3 Skin: no rash, normal turgor <Bill Aguilar - Last Filed: 02/09/18 08:57> Dx/Plan (1) Decubitus ulcer, stage 4 Code(s): L89.94 - PRESSURE ULCER OF UNSPECIFIED SITE, STAGE 4 Status: Acute (2) Osteomyelitis Code(s): M86.9 - OSTEOMYELITIS, UNSPECIFIED Status: Acute Qualifiers: Osteomyelitis location: other site (3) Acute encephalopathy Code(s): G93.40 - ENCEPHALOPATHY, UNSPECIFIED Status: Resolved (4) Hypomagnesemia Code(s): E83.42 - HYPOMAGNESEMIA Status: Resolved (5) Septic shock Code(s): A41.9 - SEPSIS, UNSPECIFIED ORGANISM; R65.21 - SEVERE SEPSIS WITH SEPTIC SHOCK Status: Resolved - Plan Plan: Stage IV Decubitus Ulcers A- Bilateral ischial spine ulcers. Pt also has ulcer on L heel. wound care consulted; appreciate recs. gen surg consulted, recommended continuing wound care, no surgical intervention required. P- continue attempting to wean off of narcotics, gabapentin increased, norco decreased, naproxen - morphine during dressing changes while hospitalized - continue wound care Osteomyelitis of bilateral ischial spines A- Pt afebrile and doing well, ID consulted, appreciate recs - Cont Vanc/Zosyn for 6 weeks with end date of 03/13/18. PICC in place - Awaiting CM recs for placement for long-term IV abx Septic shock, resolved A- 2/2 UTI. s/p epi and levophed gtt. UCx wasn't sent from initial urine, repeat showed NGTD. BCx no growth P- Continuing Vanc/Zosyn for osteomyelitis Complicated UTI - On Vanc, Zosyn, this has likely resolved at this time. 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 However, neurology believes this is more likely due to West Nile Virus vs Transverse Myelitis. APS called from ED P- cont wound care and broad spectrum ABX - Neuro on board, appreciate recs - Pending placement in [place] Encephalopathy, resolved A- Appears resolved. New areas of infarct on CT, but MRI showed nonspecific multifocal white matter abnormalities and CTA [place] was unremarkable and so was likely delirium vs psychosis. P- Continue risperdone. - Neurology has been consulted, appreciate recs Dispo: CM on board to help place patient in SNF for IV abx for 6 weeks as well as wound care. Pending placement. Case management has reached out to LTAC and NH in [place]. 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 Code(s): Z86.69 - PERSONAL HISTORY OF DIS OF THE NERVOUS SYS AND SENSE ORGANS Status: Chronic (2) Paraplegia Code(s): G82.20 - PARAPLEGIA, UNSPECIFIED Status: Acute (3) Anemia Code(s): D64.9 - ANEMIA, UNSPECIFIED Status: Acute Qualifiers: Anemia type: unspecified type Qualified Code(s): D64.9 - Anemia, unspecified (4) Complicated urinary tract infection Code(s): N39.0 - URINARY TRACT INFECTION, SITE NOT SPECIFIED Status: Resolved (5) Colostomy in place Code(s): Z93.3 - COLOSTOMY STATUS Status: Chronic (6) Acute encephalopathy Code(s): G93.40 - ENCEPHALOPATHY, UNSPECIFIED Status: Resolved (7) Acute respiratory failure with hypoxia Code(s): J96.01 - ACUTE RESPIRATORY FAILURE WITH HYPOXIA Status: Resolved (8) Decubitus ulcer, stage 3 Code(s): L89.93 - PRESSURE ULCER OF UNSPECIFIED SITE, STAGE 3 Status: Acute (9) Stage IV decubitus ulcer Code(s): L89.94 - PRESSURE ULCER OF UNSPECIFIED SITE, STAGE 4 Status: Acute Qualifiers: Pressure injury location: sacral region Qualified Code(s): L89.154 - Pressure ulcer of sacral region, stage 4 (10) Hypomagnesemia Code(s): E83.42 - HYPOMAGNESEMIA Status: Resolved (11) Acute kidney injury Code(s): N17.9 - ACUTE KIDNEY FAILURE, UNSPECIFIED Status: Acute (12) Hyponatremia Code(s): E87.1 - HYPO-OSMOLALITY AND HYPONATREMIA Status: Resolved (13) Severe protein-calorie malnutrition Code(s): E43 - UNSPECIFIED SEVERE PROTEIN-CALORIE MALNUTRITION Status: Acute (14) Septic shock Code(s): A41.9 - SEPSIS, UNSPECIFIED ORGANISM; R65.21 - SEVERE SEPSIS WITH SEPTIC SHOCK Status: Resolved <Darrell Burton - Last Filed: 02/09/18 20:39> Attending Addendum - Attending Addendum Date/Time: 02/09/182037 I personally evaluated the patient and discussed the management with Dr. Aguilar. I agree with and repeated the History, Examination, Assessment and Plan documented above with any addition or exceptions noted below. Stable thrombocytosis as well. <Darrell Burton - Last Filed: 02/09/18 20:39>
[2018-02-09] MEDS: buPROPion 75 MG TAB PO SCH ×2 (07:54→21:01)
[2018-02-09] MEDS: Vancomycin HCl 1 GM in Premix Bag 1 BAG IVPB SCH ×2 (07:54→21:11)
[2018-02-09] MEDS: Baclofen 10 MG TAB PO SCH ×3 (07:54→21:01)
[2018-02-09] MEDS: risperiDONE 1 MG TAB PO SCH ×2 (07:54→21:01)
[2018-02-09] MEDS: Gabapentin 300 MG CAP PO SCH ×3 (07:54→21:00)
[2018-02-09] MEDS: Naproxen 500 MG TAB PO SCH ×2 (07:54→21:01)
[2018-02-09] MEDS: Morphine 4 MG/ML VIAL SLOW IVP PRN (11:23)
[2018-02-09] MEDS: Sodium Hypochlorite 0.25% Solution 480 ML BOT TOP SCH (12:14)
[2018-02-09 12:41] LABS: ALT (SGPT) 15 U/L (8-55); AST (SGOT) 13 U/L (5-34); Albumin 3.2 g/dL (3.5-5.0); Alkaline Phosphatase 66 U/L (40-150); Anion Gap 9 mmol/L (10-20); BUN (Urea Nitrogen) 17 mg/dL (8.9-20.6); Bilirubin, Total 0.3 mg/dL (0.2-1.2); Calc. Creatinine Clearance 133 mL/min (70-130); Calcium 9.6 mg/dL (7.8-10.44); Carbon Dioxide 25 mmol/L (22-29); Chloride 106 mmol/L (98-107); Estimated GFR-MDRD Greater than 90; Globulin 3.5 g/dL (2.4-3.5); Glucose 79 mg/dL (70-105); Potassium 4.2 mmol/L (3.5-5.1); Protein, Total 6.7 g/dL (6.0-8.3); Sodium 136 mmol/L (136-145)
[2018-02-09 12:53] LABS: #Basophils 0.1 thou/uL (0.0-0.2); #Eosinphils 0.7 thou/uL (0.0-0.7); #Lymphocytes 1.6 thou/uL (1.20-3.40); #Monocytes 1.1 thou/uL (0.11-0.59); #Neutrophils 3.7 thou/uL (1.40-6.50); %Basophils 0.9 % (0.0-1.0); %Eosinophils 10.4 % (0.0-10.0); %Lymphocytes 22.3 % (21.0-51.0); %Monocytes 14.9 % (0.0-10.0); %Neutrophils 51.5 % (42.0-75.0); Hemoglobin 9.2 g/dL (14.0-18.0); Hypochromia SLIGHT = 6-15 cells (100X) (0-5/hpf); MDiff Complete? YES; Mean Corpuscular HGB CONC 29.3 g/dL (32.0-36.0); Mean Corpuscular Hemoglobin 23.7 pg (27.0-31.0); Mean Platelet Volume 7.1 fL (7.4-10.4); PLT Morphology Comment Appears Increased; Platelet Count 532 thou/uL (130-400); Polychromasia SLIGHT = 2-3 cells (100X) (0-2/hpf); RBC Distribution Width 19.3 % (11.5-14.5); Red Blood Cell (RBC) Count 3.86 mill/uL (4.70-6.10); White Blood Cell (WBC) Count 7.2 thou/uL (4.8-10.8)
[2018-02-09] MEDS: HYDROcodone/Acetaminophen 10/325 mg Tablet PO SCH ×2 (13:47→21:00)
--- NOTE | 2018-02-09 15:51 | PRG ---
DATE OF SERVICE: 02/09/2018 SUBJECTIVE: Mr. Lamar now has changed his mind. He does not want to go to [place] anymore. He wa nts to go to [place]. He denies any headaches, no vomiting, no abdominal pain. PHYSICAL EXAMINATION: VITAL SIGNS: T-max 98.3, blood pressure 120/77, pulse 81, respirations 16, O2 sat 95%. Colostomy in place without changes. The patient has a peripheral IV access GENERAL APPEARANCE:. Awake, alert, oriented. LUNGS: Clear. CARDIOVASCULAR: S1, S2, regular rate. ABDOMEN: Soft, mild distention, paraplegia as noted before. LABORATORY DATA: White cell count down to 7.2, hemoglobin 9.2, platelets 532. Sodium 136, creatinin e 0.72, albumin 3.2. Microbiology negative urine and blood cultures. ASSESSMENT AND DISCUSSION: There are degenerative condition with incomplete quadriplegia, multiple decubitus ulcers, stage IV, treated in the past with multiple modalities with refractory state, proba justino related to his social condition and frequent moves, unstable leaving arrangements. The patient n ow presents with leukocytosis, neurogenic bladder and associated inflammatory process in the areas of decubitus ulcers with myositis and cellulitis as well as evidence of chronic/acute osteomyelitis of the involved area. At this point, patient to continue IV antimicrobial therapy and try to obtain shanae cement. His insurance is in [place] and they would have to go there for placement and so this decis ion to go to [place] is problematic from the standpoint of disposition.
[2018-02-09 20:18] LABS: Vancomycin, Trough 21.1 ug/mL
[2018-02-10] MEDS: Piperacillin/Tazobactam 3.375 GM in Sodium Chloride 0.9% 100 ML IVPB SCH ×4 (02:59→20:10)
[2018-02-10] MEDS: HYDROcodone/Acetaminophen 10/325 mg Tablet PO SCH ×3 (06:14→22:04)
--- NOTE | 2018-02-10 06:15 | PDOC.FM ---
- Subjective Subjective: Pt feels well this AM, reports better control of pain, no fevers or chills, no other complaints at this time. Pt has changed his mind again and now desires to go to [place] on DC. no fever/chills, no cp/palpitations, no sob/cough - Objective MAR Reviewed: Yes Vital Signs & Weight: Vital Signs (12 hours) Temp Pulse Resp BP Pulse Ox 02/10/18 04:46 98.2 F 110 H 20 114/74 94 L 02/10/18 00:00 98.2 F 92 20 99/64 95 02/09/18 19:56 97.8 F 85 20 121/77 96 Weight Admit Weight 64.7 kg Weight 67.449 kg Most Recent Monitor Data Heart Rate from ECG 99 NIBP 123/84 NIBP BP-Mean 97 Respiration from ECG 16 SpO2 100 I&O: 02/08/18 02/09/18 02/10/18 06:59 06:59 06:59 Intake Total 2199 1999 Output Total 8150 6664 CloudTran -5950 -4664 Result Diagrams: 02/09/18 12:00 02/09/18 12:00 <Bill Aguilar - Last Filed: 02/10/18 08:49> - Objective Vital Signs & Weight: Vital Signs (12 hours) Temp Pulse Resp BP BP Pulse Ox 02/10/18 07:43 95 02/10/18 07:00 97.7 F 92 18 102/68 95 02/10/18 04:46 98.2 F 110 H 20 114/74 94 L Weight Admit Weight 64.7 kg Weight 67.449 kg Most Recent Monitor Data Heart Rate from ECG 99 NIBP 123/84 NIBP BP-Mean 97 Respiration from ECG 16 SpO2 100 I&O: 02/09/18 02/10/18 02/11/18 06:59 06:59 06:59 Intake Total 2199 1999 Output Total 8150 8917 1150 Balance -5950 -6917 -1150 Result Diagrams: 02/09/18 12:00 02/09/18 12:00 <Darrell Burton - Last Filed: 02/10/18 12:49> Phys Exam - Physical Examination Constitutional: NAD HEENT: moist MMs, sclera anicteric Neck: no nodes, supple Respiratory: no wheezing, clear to auscultation bilateral Cardiovascular: RRR, no significant murmur Gastrointestinal: soft, non-tender Musculoskeletal: no edema, pulses present paraplegic. marked weakness in LE Psychiatric: normal affect, A&O x 3 Skin: no rash, normal turgor <Bill Aguilar - Last Filed: 02/10/18 08:49> Dx/Plan (1) Decubitus ulcer, stage 4 Code(s): L89.94 - PRESSURE ULCER OF UNSPECIFIED SITE, STAGE 4 Status: Acute (2) Osteomyelitis Code(s): M86.9 - OSTEOMYELITIS, UNSPECIFIED Status: Acute Qualifiers: Osteomyelitis location: other site (3) Acute encephalopathy Code(s): G93.40 - ENCEPHALOPATHY, UNSPECIFIED Status: Resolved (4) Hypomagnesemia Code(s): E83.42 - HYPOMAGNESEMIA Status: Resolved (5) Septic shock Code(s): A41.9 - SEPSIS, UNSPECIFIED ORGANISM; R65.21 - SEVERE SEPSIS WITH SEPTIC SHOCK Status: Resolved - Plan Plan: Stage IV Decubitus Ulcers A- Bilateral ischial spine ulcers. Pt also has ulcer on L heel. wound care consulted; appreciate recs. gen surg consulted, recommended continuing wound care, no surgical intervention required. P- continue pain control with Nocro 10 TID, gabapentin, naproxen - morphine during dressing changes while hospitalized - continue wound care Myositis/Cellulitis 2/2 Decubitus Ulcers A- Pt afebrile and doing well, ID consulted, appreciate recs - Cont Vanc/Zosyn, switch to ertapenem and vanc on DC for 6 weeks with end date of 03/13/18. PICC in place - Awaiting recs for placement for long-term IV abx Septic shock, resolved A- 2/2 UTI. s/p epi and levophed gtt. UCx wasn't sent from initial urine, repeat showed NGTD. BCx no growth P- Continuing ABX for osteomyelitis Complicated UTI - On Vanc, Zosyn, this has likely resolved at this time. 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 However, neurology believes this is more likely due to West Nile Virus vs Transverse Myelitis. APS called from ED P- cont wound care and broad spectrum ABX - Neuro on board, appreciate recs - Pending placement in [place] Encephalopathy, resolved A- Appears resolved. New areas of infarct on CT, but MRI showed nonspecific multifocal white matter abnormalities and CTA [place] was unremarkable and so was likely delirium vs psychosis. P- Continue risperdone. - Neurology has been consulted, appreciate recs Dispo: CM on board to help place patient in SNF for IV abx for 6 weeks as well as wound care. Pending placement. Case management has reached out to LTAC and NH in [place]. 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 Code(s): Z86.69 - PERSONAL HISTORY OF DIS OF THE NERVOUS SYS AND SENSE ORGANS Status: Chronic (2) Paraplegia Code(s): G82.20 - PARAPLEGIA, UNSPECIFIED Status: Acute (3) Anemia Code(s): D64.9 - ANEMIA, UNSPECIFIED Status: Acute Qualifiers: Anemia type: unspecified type Qualified Code(s): D64.9 - Anemia, unspecified (4) Complicated urinary tract infection Code(s): N39.0 - URINARY TRACT INFECTION, SITE NOT SPECIFIED Status: Resolved (5) Colostomy in place Code(s): Z93.3 - COLOSTOMY STATUS Status: Chronic (6) Acute encephalopathy Code(s): G93.40 - ENCEPHALOPATHY, UNSPECIFIED Status: Resolved (7) Acute respiratory failure with hypoxia Code(s): J96.01 - ACUTE RESPIRATORY FAILURE WITH HYPOXIA Status: Resolved (8) Decubitus ulcer, stage 3 Code(s): L89.93 - PRESSURE ULCER OF UNSPECIFIED SITE, STAGE 3 Status: Acute (9) Stage IV decubitus ulcer Code(s): L89.94 - PRESSURE ULCER OF UNSPECIFIED SITE, STAGE 4 Status: Acute Qualifiers: Pressure injury location: sacral region Qualified Code(s): L89.154 - Pressure ulcer of sacral region, stage 4 (10) Hypomagnesemia Code(s): E83.42 - HYPOMAGNESEMIA Status: Resolved (11) Acute kidney injury Code(s): N17.9 - ACUTE KIDNEY FAILURE, UNSPECIFIED Status: Acute (12) Hyponatremia Code(s): E87.1 - HYPO-OSMOLALITY AND HYPONATREMIA Status: Resolved (13) Severe protein-calorie malnutrition Code(s): E43 - UNSPECIFIED SEVERE PROTEIN-CALORIE MALNUTRITION Status: Acute (14) Septic shock Code(s): A41.9 - SEPSIS, UNSPECIFIED ORGANISM; R65.21 - SEVERE SEPSIS WITH SEPTIC SHOCK Status: Resolved <Darrell Burton - Last Filed: 02/10/18 12:49> Attending Addendum - Attending Addendum Date/Time: 02/10/18 4013 I personally evaluated the patient and discussed the management with Dr. Aguilar. I agree with and repeated the History, Examination, Assessment and Plan documented above with any addition or exceptions noted below. I believe he would benefit from suprapubic catheter as he has not been successfully/is unable to self-cath. Will consult urology. <Darrell Burton - Last Filed: 02/10/18 12:49>
[2018-02-10] MEDS: risperiDONE 1 MG TAB PO SCH ×2 (07:47→20:11)
[2018-02-10] MEDS: Naproxen 500 MG TAB PO SCH ×2 (07:47→20:12)
[2018-02-10] MEDS: buPROPion 75 MG TAB PO SCH ×2 (07:47→20:13)
[2018-02-10] MEDS: Gabapentin 300 MG CAP PO SCH ×3 (07:47→20:12)
[2018-02-10] MEDS: Baclofen 10 MG TAB PO SCH ×3 (07:48→20:10)
[2018-02-10] MEDS: Sodium Hypochlorite 0.25% Solution 480 ML BOT TOP SCH (07:52)
[2018-02-10] MEDS: Vancomycin HCl 1 GM in Premix Bag 1 BAG IVPB SCH ×2 (09:01→20:27)
--- NOTE | 2018-02-11 00:38 | CON ---
INPATIENT CONSULTATION DATE OF CONSULTATION: 02/10/2018 REASON FOR CONSULT: History of paraplegia, neurogenic bladder, assess for suprapubic tube placement. REFERRING: Family Medicine Service. HISTORY OF PRESENT ILLNESS: Mr. Lamar is a 37-year-old male with vague history. Much of the history is obtained per chart, as the patient himself is a poor historian. He relates that approximately 1-2 years ago, he developed acute lower extremity weakness, it appears the patient has some sort of degenerative process. However, history is vague. He is a resident of [place] , he does not recall how he got here per se as he states it was an ambulance transfer from [place]. He states that he came to visit his son, and taken back to [place], which is his home residence. Subsequently, he became ill and appears that he may have been in [place] due to sacral decubitus ulcer. Per patient, he had an indwelling Nolan catheter on arrival; however, this was discontinued by the Family Medicine Service on CICs of recent. Per nursing staff, no obvious issues passing a catheter. He does relate that he was on CIC for approximately a year; however, due to difficulty passing a catheter, he did see his urologist sometime in September and underwent cystoscopy. It appears that he may have caused a false passage and a catheter was placed over guidewire. He had an indwelling Nolan catheter which was removed recently per patient on this admission. CIC results reviewed with nursing staff, demonstrating that his CIC last amount was over 1100 mL of clear dilute urine. I's and O's does demonstrate he does have significant polyuria. Urine output on average 6-5 liters per day. He is negative 6.[address] obtained demonstrating catheter in the bladder. Bladder is not completely empty. There is mild prominence of the collecting system. He states that he is feeling better with antibiotic therapy and desires to be returned to [place]. PAST MEDICAL HISTORY: 1. Urologic disorder, unclear etiology and course paraplegia. 2. History of neurogenic bladder on CICs, recently discontinued due to likely false passage with indwelling Nolan catheter placed by a urologist in [place]. 3. Multiple decubitus ulcers. PAST SURGICAL HISTORY: Include recent cystoscopy per patient few months ago over guidewire Nolan catheter placement, colostomy diversion. FAMILY HISTORY: Noncontributory. SOCIAL HISTORY: Resident of [place], family also in [place]. CURRENT MEDICATIONS: Include hydrocodone, baclofen, Neurontin, Haldol, morphine , naproxen, Zosyn, Risperdal, vancomycin. Wound Care following as well as Infectious Disease regarding his sacral decubitus ulcer. REVIEW OF SYSTEMS: Ten-point review of systems as above, otherwise noncontributory. PHYSICAL EXAMINATION: VITAL SIGNS: Stable. He is afebrile. Last CIC was 1100 mL. I's and O's 2000 in, 8917 out, 500 mL accounted for stool. His daily average of urine output looking back demonstrates 5-6 liters per day. GENERAL: Patient is in no acute distress. HEENT: Grossly unremarkable. HEART: Regular rate. LUNGS: Clear. ABDOMEN: Protuberant. Midline laparotomy incision descended, large amount of stool and gas in the colostomy. GENITOURINARY: Demonstrates circumcised phallus. Meatus is unremarkable. Minimal acquired hypospadias from prior indwelling Nolan catheter. Testes with no evidence of mass. EXTREMITIES: No cyanosis, clubbing, or edema. PERTINENT LABORATORY DATA AND IMAGING: CT without contrast demonstrated very mild bilateral hydronephrosis with no evidence of obstruction. Nolan catheter in the bladder not completely decompressed. MRI of the pelvis demonstrates posterior decubitus ulcer, extending to right and left ischium, evidence of acute and chronic osteomyelitis, no evidence of drainable abscess, nonspecific myositis. IMPRESSION AND PLAN: 1. Mr. Lamar is a 37-year-old male with unknown neurologic deficit with paraplegia. 2. Neurogenic bladder, previously on CIC. 3. Likely had false passage recently , had indwelling Nolan catheter. I did replace a 16-[place] Nolan catheter at bedside, demonstrating clear-dilute urine , approximately 400-500 mL of return. Given he recently had a false passage, I would recommend indwelling Nolan catheter to continue. He is being transitioned back to [place]. As such, please leave an indwelling Nolan catheter for now. He has a urologist in [place] where he can follow up who performed cystoscopy few months ago. He can address suprapubic tube conversion once he has returned to his own residence. [facility]
[2018-02-11] MEDS: Piperacillin/Tazobactam 3.375 GM in Sodium Chloride 0.9% 100 ML IVPB SCH ×4 (01:36→20:13)
[2018-02-11] MEDS: HYDROcodone/Acetaminophen 10/325 mg Tablet PO SCH ×3 (05:40→21:37)
--- NOTE | 2018-02-11 06:21 | PDOC.FM ---
- Subjective Subjective: Pt feels well today and reports excellent pain control with [place] TID. Pt feels he is slowly regaining sensation and strength in BLEs. Reports the machine adjuster leader case trim told him he has approval at [facility] in [place]. no fever/chills, no sob/cough, no cp/palpitations - Objective MAR Reviewed: Yes Vital Signs & Weight: Vital Signs (12 hours) Temp Pulse Resp BP Pulse Ox 02/10/18 20:02 97.8 F 94 18 108/68 97 Weight Admit Weight 64.7 kg Weight 67.449 kg Most Recent Monitor Data Heart Rate from ECG 99 NIBP 123/84 NIBP BP-Mean 97 Respiration from ECG 16 SpO2 100 I&O: 02/09/18 02/10/18 02/11/18 06:59 06:59 06:59 Intake Total 2199 1999 1440 Output Total 8150 8917 4100 [id number] -[id number] Result Diagrams: 02/09/18 12:00 02/09/18 12:00 <Bill Aguilar - Last Filed: 02/11/18 08:07> - Objective Vital Signs & Weight: Vital Signs (12 hours) Temp Pulse Resp BP Pulse Ox 02/11/18 08:16 94 L 02/11/18 07:02 97.9 F 99 16 118/74 94 L Weight Admit Weight 64.7 kg Weight 67.449 kg Most Recent Monitor Data Heart Rate from ECG 99 NIBP 123/84 NIBP BP-Mean 97 Respiration from ECG 16 SpO2 100 I&O: 02/10/18 02/11/18 02/12/18 06:59 06:59 06:59 Intake Total 1999 4240 Output Total 8917 4430 [employer] -[id number] -4622 Result Diagrams: 02/09/18 12:00 02/09/18 12:00 <Darrell Burton - Last Filed: 02/11/18 14:46> Phys Exam - Physical Examination Constitutional: NAD HEENT: moist MMs, sclera anicteric Neck: no nodes, supple Respiratory: no wheezing, clear to auscultation bilateral Cardiovascular: RRR, no significant murmur Gastrointestinal: soft, positive bowel sounds Musculoskeletal: no edema, pulses present paraplegic, A&Ox3 Psychiatric: normal affect Skin: no rash, normal turgor <Bill Aguilar - Last Filed: 02/11/18 08:07> Dx/Plan (1) Decubitus ulcer, stage 4 Code(s): L89.94 - PRESSURE ULCER OF UNSPECIFIED SITE, STAGE 4 Status: Acute (2) Osteomyelitis Code(s): M86.9 - OSTEOMYELITIS, UNSPECIFIED Status: Acute Qualifiers: Osteomyelitis location: other site (3) Acute encephalopathy Code(s): G93.40 - ENCEPHALOPATHY, UNSPECIFIED Status: Resolved (4) Hypomagnesemia Code(s): E83.42 - HYPOMAGNESEMIA Status: Resolved (5) Septic shock Code(s): A41.9 - SEPSIS, UNSPECIFIED ORGANISM; R65.21 - SEVERE SEPSIS WITH SEPTIC SHOCK Status: Resolved - Plan Plan: Stage IV Decubitus Ulcers A- Bilateral ischial spine ulcers. Pt also has ulcer on L heel. wound care consulted. gen surg consulted, recommended continuing wound care, no surgical intervention required. P- continue pain control with Nocro 10 TID, gabapentin, naproxen - morphine during dressing changes while hospitalized - continue wound care Myositis/Cellulitis 2/2 Decubitus Ulcers A- Pt afebrile and doing well, ID consulted, appreciate recs P- Cont Vanc/Zosyn, switch to ertapenem and vanc on DC with end date of . PICC in place - Awaiting CM recs for placement for long-term IV abx Septic shock, resolved A- 2/2 UTI. s/p epi and levophed gtt. UCx wasn't sent from initial urine, repeat showed NGTD. BCx no growth P- Continuing ABX for osteomyelitis Complicated UTI - On Vanc, Zosyn, this has likely resolved at this time. 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 However, neurology believes this is more likely due to West Nile Virus vs Transverse Myelitis. APS called from ED P- cont wound care and broad spectrum ABX - Neuro on board, appreciate recs - Pending placement in [place] at [facility] Encephalopathy, resolved A- Appears resolved. New areas of infarct on CT, but MRI showed nonspecific multifocal white matter abnormalities and CTA [place] of [place] was unremarkable and so was likely delirium vs psychosis. P- Continue risperdone. - Neurology has been consulted, appreciate recs Dispo: CM on board to help place patient in SNF for IV abx for 6 weeks as well as wound care. Pending placement. Denied at [facility], possible acceptance at [facility]. Will touch base with CM. 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 - PERSONAL HISTORY OF DIS OF THE NERVOUS SYS AND SENSE ORGANS Status: Chronic (2) Paraplegia Code(s): G82.20 - PARAPLEGIA, UNSPECIFIED Status: Acute (3) Anemia Code(s): D64.9 - ANEMIA, UNSPECIFIED Status: Acute Qualifiers: Anemia type: unspecified type Qualified Code(s): D64.9 - Anemia, unspecified (4) Complicated urinary tract infection Code(s): N39.0 - URINARY TRACT INFECTION, SITE NOT SPECIFIED Status: Resolved (5) Colostomy in place Code(s): Z93.3 - COLOSTOMY STATUS Status: Chronic (6) Acute encephalopathy Code(s): G93.40 - ENCEPHALOPATHY, UNSPECIFIED Status: Resolved (7) Acute respiratory failure with hypoxia Code(s): J96.01 - ACUTE RESPIRATORY FAILURE WITH HYPOXIA Status: Resolved (8) Decubitus ulcer, stage 3 Code(s): L89.93 - PRESSURE ULCER OF UNSPECIFIED SITE, STAGE 3 Status: Acute (9) Stage IV decubitus ulcer Code(s): L89.94 - PRESSURE ULCER OF UNSPECIFIED SITE, STAGE 4 Status: Acute Qualifiers: Pressure injury location: sacral region Qualified Code(s): L89.154 - Pressure ulcer of sacral region, stage 4 (10) Hypomagnesemia Code(s): E83.42 - HYPOMAGNESEMIA Status: Resolved (11) Acute kidney injury Code(s): N17.9 - ACUTE KIDNEY FAILURE, UNSPECIFIED Status: Acute (12) Hyponatremia Code(s): E87.1 - HYPO-OSMOLALITY AND HYPONATREMIA Status: Resolved (13) Severe protein-calorie malnutrition Code(s): E43 - UNSPECIFIED SEVERE PROTEIN-CALORIE MALNUTRITION Status: Acute (14) Septic shock Code(s): A41.9 - SEPSIS, UNSPECIFIED ORGANISM; R65.21 - SEVERE SEPSIS WITH SEPTIC SHOCK Status: Resolved <Darrell Burton - Last Filed: 02/11/18 14:46> Attending Addendum - Attending Addendum Date/Time: 02/11/18 1446 I personally evaluated the patient and discussed the management with Dr. Aguilar and Lamont. I agree with and repeated the History, Examination, Assessment and Plan documented above with any addition or exceptions noted below. <Darrell Burton - Last Filed: 02/11/18 14:46>
[2018-02-11] MEDS: Baclofen 10 MG TAB PO SCH ×3 (08:18→20:18)
[2018-02-11] MEDS: risperiDONE 1 MG TAB PO SCH ×2 (08:18→20:19)
[2018-02-11] MEDS: Gabapentin 300 MG CAP PO SCH ×3 (08:18→20:17)
[2018-02-11] MEDS: buPROPion 75 MG TAB PO SCH ×2 (08:18→20:18)
[2018-02-11] MEDS: Naproxen 500 MG TAB PO SCH ×2 (08:18→20:18)
[2018-02-11 08:36] LABS: Vancomycin, Trough 22.5 ug/mL
[2018-02-11] MEDS: Vancomycin HCl 1 GM in Premix Bag 1 BAG IVPB SCH ×2 (09:39→21:38)
[2018-02-11] MEDS: Morphine 4 MG/ML VIAL SLOW IVP PRN (10:57)
[2018-02-11] MEDS: Sodium Hypochlorite 0.25% Solution 480 ML BOT TOP SCH (11:01)
--- NOTE | 2018-02-11 16:53 | PRG ---
DATE OF SERVICE: 02/11/2018 INPATIENT PROGRESS NOTE SUBJECTIVE: The patient is resting comfortably. No acute complaints. OBJECTIVE: VITAL SIGNS: Stable. He is afebrile. I's and O's 6300 out, 4240 in. ABDOMEN: Soft, protuberant. Stool in colostomy. GENITOURINARY: Nolan catheter adequately secured with clear urine. LABORATORY DATA: Within normal limits from 2 days ago. IMPRESSION AND PLAN: Mr. Lamar is a 37-year-old male with, 1. Unknown neurologic disorder, paraplegia. 2. Neurogenic bladder on clean intermittent catheterization, likely had recent false passage. Scope by his urologist in [place] with an indwelling urethral Nolan catheter. He has been catheterized i house. However, I did replace the Nolan catheter yesterday due to his history of false passage. I ndwelling urethral Nolan is to remain in situ. Case management currently working on transferring the patient back to his home in [place]. He may resume his care with his urologist in [place] for con version of urethral Nolan to a suprapubic tube if he desires.
[2018-02-12] MEDS: Piperacillin/Tazobactam 3.375 GM in Sodium Chloride 0.9% 100 ML IVPB SCH ×2 (01:53→08:26)
[2018-02-12] MEDS: HYDROcodone/Acetaminophen 10/325 mg Tablet PO SCH ×3 (05:33→21:59)
--- NOTE | 2018-02-12 05:59 | PDOC.FM ---
- Subjective Subjective: Doing well this AM, pain is controlled, no complaints at this time. no fevers/chills, no cp, no palpitations ,no nausea no vomiting - Objective MAR Reviewed: Yes Vital Signs & Weight: Vital Signs (12 hours) Temp Pulse Resp BP Pulse Ox 02/11/18 20:00 98.3 F 103 H 18 100/63 94 L Weight Admit Weight 64.7 kg Weight 67.449 kg Most Recent Monitor Data Heart Rate from ECG 99 NIBP 123/84 NIBP BP-Mean 97 Respiration from ECG 16 SpO2 100 I&O: 02/10/18 02/11/18 02/12/18 06:59 06:59 06:59 Intake Total 19990 1840 Output Total 8917 6300 1100 Balance -69 -2059 740 Result Diagrams: 02/09/18 12:00 02/09/18 12:00 <Bill Aguilar - Last Filed: 02/12/18 08:28> - Objective Vital Signs & Weight: Vital Signs (12 hours) Temp Pulse Resp BP Pulse Ox 02/12/18 08:00 96 02/12/18 07:10 97.7 F 98 16 101/65 96 Weight Admit Weight 64.7 kg Weight 67.449 kg Most Recent Monitor Data Heart Rate from ECG 99 NIBP 123/84 NIBP BP-Mean 97 Respiration from ECG 16 SpO2 100 I&O: 02/11/18 02/12/18 02/13/18 06:59 06:59 06:59 Intake Total 4240 3590 Output Total 6300 3000 Balance -2059 590 Result Diagrams: 02/09/18 12:00 02/09/18 12:00 <Darrell Burton - Last Filed: 02/12/18 13:51> Phys Exam - Physical Examination Constitutional: NAD HEENT: moist MMs, sclera anicteric Neck: no nodes, no JVD Respiratory: no wheezing, clear to auscultation bilateral Cardiovascular: RRR, no significant murmur Gastrointestinal: soft, non-tender Musculoskeletal: no edema, pulses present alert and oriented, decreased sensation/strength in bilat lower extrem. Psychiatric: normal affect Skin: no rash, normal turgor <Bill Aguilar - Last Filed: 02/12/18 08:28> Dx/Plan (1) Decubitus ulcer, stage 4 Code(s): L89.94 - PRESSURE ULCER OF UNSPECIFIED SITE, STAGE 4 Status: Acute (2) Osteomyelitis Code(s): M86.9 - OSTEOMYELITIS, UNSPECIFIED Status: Acute Qualifiers: Osteomyelitis location: other site (3) Acute encephalopathy Code(s): G93.40 - ENCEPHALOPATHY, UNSPECIFIED Status: Resolved (4) Hypomagnesemia Code(s): E83.42 - HYPOMAGNESEMIA Status: Resolved (5) Septic shock Code(s): A41.9 - SEPSIS, UNSPECIFIED ORGANISM; R65.21 - SEVERE SEPSIS WITH SEPTIC SHOCK Status: Resolved - Plan Plan: Stage IV Decubitus Ulcers A- Bilateral ischial spine ulcers. Pt also has ulcer on L heel. wound care consulted. gen surg consulted, recommended continuing wound care, no surgical intervention required. P- continue pain control with Nocro 10 TID, gabapentin, naproxen - morphine during dressing changes while hospitalized - continue wound care Myositis/Cellulitis 2/2 Decubitus Ulcers A- Pt afebrile and doing well, ID consulted, appreciate recs P- Cont Vanc/Zosyn, switch to ertapenem and vanc on DC with end date of . PICC in place - Pt has placement at [facility] in [place] but we are awaiting arrangements for ride to LTAC for long-term IV abx Septic shock, resolved A- 2/2 UTI. s/p epi and levophed gtt. UCx wasn't sent from initial urine, repeat showed NGTD. BCx no growth P- Continuing ABX for osteomyelitis Complicated UTI - On Vanc, Zosyn, this has likely resolved at this time. 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 However, neurology believes this is more likely due to West Nile Virus vs Transverse Myelitis. APS called from ED P- cont wound care and broad spectrum ABX - Neuro on board, appreciate recs - Pending ride to [place] at LTAC Encephalopathy, resolved A- Appears resolved. New areas of infarct on CT, but MRI showed nonspecific multifocal white matter abnormalities and CTA [place] of [place] was unremarkable and so was likely delirium vs psychosis. P- Continue risperdone. - Neurology has been consulted, appreciate recs Dispo: CM on board to help place patient in SNF for IV abx for 6 weeks as well as wound care. 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 - PERSONAL HISTORY OF DIS OF THE NERVOUS SYS AND SENSE ORGANS Status: Chronic (2) Paraplegia Code(s): G82.20 - PARAPLEGIA, UNSPECIFIED Status: Acute (3) Anemia Code(s): D64.9 - ANEMIA, UNSPECIFIED Status: Acute Qualifiers: Anemia type: unspecified type Qualified Code(s): D64.9 - Anemia, unspecified (4) Complicated urinary tract infection Code(s): N39.0 - URINARY TRACT INFECTION, SITE NOT SPECIFIED Status: Resolved (5) Colostomy in place Code(s): Z93.3 - COLOSTOMY STATUS Status: Chronic (6) Acute encephalopathy Code(s): G93.40 - ENCEPHALOPATHY, UNSPECIFIED Status: Resolved (7) Acute respiratory failure with hypoxia Code(s): J96.01 - ACUTE RESPIRATORY FAILURE WITH HYPOXIA Status: Resolved (8) Decubitus ulcer, stage 3 Code(s): L89.93 - PRESSURE ULCER OF UNSPECIFIED SITE, STAGE 3 Status: Acute (9) Stage IV decubitus ulcer Code(s): L89.94 - PRESSURE ULCER OF UNSPECIFIED SITE, STAGE 4 Status: Acute Qualifiers: Pressure injury location: sacral region Qualified Code(s): L89.154 - Pressure ulcer of sacral region, stage 4 (10) Hypomagnesemia Code(s): E83.42 - HYPOMAGNESEMIA Status: Resolved (11) Acute kidney injury Code(s): N17.9 - ACUTE KIDNEY FAILURE, UNSPECIFIED Status: Acute (12) Hyponatremia Code(s): E87.1 - HYPO-OSMOLALITY AND HYPONATREMIA Status: Resolved (13) Severe protein-calorie malnutrition Code(s): E43 - UNSPECIFIED SEVERE PROTEIN-CALORIE MALNUTRITION Status: Acute (14) Septic shock Code(s): A41.9 - SEPSIS, UNSPECIFIED ORGANISM; R65.21 - SEVERE SEPSIS WITH SEPTIC SHOCK Status: Resolved <Darrell Burton - Last Filed: 02/12/18 13:51> Attending Addendum - Attending Addendum Date/Time: 02/12/18 4964 I personally evaluated the patient and discussed the management with Dr. Aguilar. I agree with and repeated the History, Examination, Assessment and Plan documented above with any addition or exceptions noted below. <Darrell Burton - Last Filed: 02/12/18 13:51>
[2018-02-12] MEDS: risperiDONE 1 MG TAB PO SCH ×2 (08:26→21:42)
[2018-02-12] MEDS: Naproxen 500 MG TAB PO SCH ×2 (08:26→21:43)
[2018-02-12] MEDS: Baclofen 10 MG TAB PO SCH ×3 (08:27→21:40)
[2018-02-12] MEDS: Gabapentin 300 MG CAP PO SCH ×3 (08:27→21:40)
[2018-02-12] MEDS: buPROPion 75 MG TAB PO SCH ×2 (08:27→21:41)
[2018-02-12] MEDS: Sodium Hypochlorite 0.25% Solution 480 ML BOT TOP SCH (08:28)
[2018-02-12] MEDS: Vancomycin HCl 1 GM in Premix Bag 1 BAG IVPB SCH ×2 (08:28→21:44)
--- NOTE | 2018-02-12 08:36 | PRG ---
INCOMPLETE DICTATION MTDD
--- NOTE | 2018-02-12 08:38 | PRG ---
DATE OF SERVICE: 02/12/2018 SUBJECTIVE: The patient without complaints. OBJECTIVE: VITAL SIGNS: Stable, afebrile. ABDOMEN: Protuberant. GENITOURINARY: Nolan catheter is adequately secured demonstrating clear dilute urine. IMPRESSION AND PLAN: Mr. Lamar is a 37-year-old male who presented with decubitus ulcers, history of paraplegia of unknown etiology, possibility of Guillain [place] versus myelitis versus Nile virus per primary service. Patient has a history of neurogenic bladder, has a urologist in [place] who performed cystoscopy a few months ago due to false passage on CIC. Therefore, indwelling Nolan catheter was replaced by on this admission with no significant issues. The patient awaits placement to be referred to [place] [facility]. Transfer with indwelling Nolan catheter and may resume care with his urologist in [place]. will sign off. MTDD
[2018-02-12] MEDS: Morphine 4 MG/ML VIAL SLOW IVP PRN (14:16)
[2018-02-12] MEDS ORDERED: Morphine 2 MG/ML SYRINGE SLOW IVP SCH (15:30)
[2018-02-12] MEDS: Melatonin 3 MG TAB PO PRN (23:27)
[2018-02-13] MEDS: HYDROcodone/Acetaminophen 10/325 mg Tablet PO SCH ×2 (06:21→14:06)
--- NOTE | 2018-02-13 06:22 | PDOC.FM ---
- Subjective Subjective: Pt feels well today, reports continued pain control and no s/s of systemic infection. No compaints at this time. no fever/chills, no cp no palpitations, no sob no cough - Objective Vital Signs & Weight: Vital Signs (12 hours) Temp Pulse Resp BP Pulse Ox 02/12/18 20:00 98.1 F 91 16 105/69 97 Weight Admit Weight 64.7 kg Weight 67.449 kg Most Recent Monitor Data Heart Rate from ECG 99 NIBP 123/84 NIBP BP-Mean 97 Respiration from ECG 16 SpO2 100 I&O: 02/11/18 02/12/18 02/13/18 06:59 06:59 06:59 Intake Total 4240 3590 1020 Output Total 6300 3000 1850 Balance -2060 590 -830 Result Diagrams: 02/09/18 12:00 02/09/18 12:00 <Bill Aguilar - Last Filed: 02/13/18 09:23> - Objective Vital Signs & Weight: Vital Signs (12 hours) Temp Pulse Resp BP Pulse Ox 02/13/18 08:15 97.9 F 86 14 113/73 96 02/13/18 08:00 96 Weight Admit Weight 64.7 kg Weight 67.449 kg Most Recent Monitor Data Heart Rate from ECG 99 NIBP 123/84 NIBP BP-Mean 97 Respiration from ECG 16 SpO2 100 I&O: 02/12/18 02/13/18 02/14/18 06:59 06:59 06:59 Intake Total 3590 1020 Output Total 3000 3150 Balance 590 -2130 Result Diagrams: 02/09/18 12:00 02/09/18 12:00 <Darrell Burton - Last Filed: 02/13/18 14:51> Phys Exam - Physical Examination Constitutional: NAD HEENT: moist MMs, sclera anicteric Neck: no JVD, supple Respiratory: no wheezing, no rales Cardiovascular: RRR, no significant murmur Gastrointestinal: soft, non-tender Musculoskeletal: no edema, pulses present decreased sensation and strength in bilateral LE Psychiatric: normal affect, A&O x 3 Skin: no rash, normal turgor <Bill Aguilar - Last Filed: 02/13/18 09:23> Dx/Plan (1) Decubitus ulcer, stage 4 Code(s): L89.94 - PRESSURE ULCER OF UNSPECIFIED SITE, STAGE 4 Status: Acute (2) Osteomyelitis Code(s): M86.9 - OSTEOMYELITIS, UNSPECIFIED Status: Acute Qualifiers: Osteomyelitis location: other site (3) Acute encephalopathy Code(s): G93.40 - ENCEPHALOPATHY, UNSPECIFIED Status: Resolved (4) Hypomagnesemia Code(s): E83.42 - HYPOMAGNESEMIA Status: Resolved (5) Septic shock Code(s): A41.9 - SEPSIS, UNSPECIFIED ORGANISM; R65.21 - SEVERE SEPSIS WITH SEPTIC SHOCK Status: Resolved - Plan Plan: Stage IV Decubitus Ulcers A- Bilateral ischial spine ulcers. Pt also has ulcer on L heel. wound care consulted. gen surg consulted, recommended continuing wound care, no surgical intervention required. P- continue pain control with Nocro 10 TID, gabapentin, naproxen - morphine during dressing changes while hospitalized - continue wound care Myositis/Cellulitis 2/2 Decubitus Ulcers A- Pt afebrile and doing well, ID consulted, appreciate recs P- Cont Vanc/Zosyn, switch to ertapenem and vanc on DC with end date of . PICC in place - Pt has placement at [facility] in [place] but we are awaiting arrangements for ride to LTAC for long-term IV abx Septic shock, resolved A- 2/2 UTI. s/p epi and levophed gtt. UCx wasn't sent from initial urine, repeat showed NGTD. BCx no growth P- Continuing ABX for osteomyelitis Complicated UTI - On Vanc, Zosyn, this has likely resolved at this time. 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 However, neurology believes this is more likely due to West Nile Virus vs Transverse Myelitis. APS called from ED P- cont wound care and broad spectrum ABX - Neuro on board, appreciate recs - Pending ride to [place] at LTAC Encephalopathy, resolved A- Appears resolved. New areas of infarct on CT, but MRI showed nonspecific multifocal white matter abnormalities and CTA [place] of [place] was unremarkable and so was likely delirium vs psychosis. P- Continue risperdone. - Neurology has been consulted, appreciate recs Dispo: CM on board to help place patient in SNF for IV abx for 6 weeks as well as wound care. has placement at [facility] in [place] but we are awaiting arrangements for ride to LTAC. 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 - PERSONAL HISTORY OF DIS OF THE NERVOUS SYS AND SENSE ORGANS Status: Chronic (2) Paraplegia Code(s): G82.20 - PARAPLEGIA, UNSPECIFIED Status: Acute (3) Anemia Code(s): D64.9 - ANEMIA, UNSPECIFIED Status: Acute Qualifiers: Anemia type: unspecified type Qualified Code(s): D64.9 - Anemia, unspecified (4) Complicated urinary tract infection Code(s): N39.0 - URINARY TRACT INFECTION, SITE NOT SPECIFIED Status: Resolved (5) Colostomy in place Code(s): Z93.3 - COLOSTOMY STATUS Status: Chronic (6) Acute encephalopathy Code(s): G93.40 - ENCEPHALOPATHY, UNSPECIFIED Status: Resolved (7) Acute respiratory failure with hypoxia Code(s): J96.01 - ACUTE RESPIRATORY FAILURE WITH HYPOXIA Status: Resolved (8) Decubitus ulcer, stage 3 Code(s): L89.93 - PRESSURE ULCER OF UNSPECIFIED SITE, STAGE 3 Status: Acute (9) Stage IV decubitus ulcer Code(s): L89.94 - PRESSURE ULCER OF UNSPECIFIED SITE, STAGE 4 Status: Acute Qualifiers: Pressure injury location: sacral region Qualified Code(s): L89.154 - Pressure ulcer of sacral region, stage 4 (10) Hypomagnesemia Code(s): E83.42 - HYPOMAGNESEMIA Status: Resolved (11) Acute kidney injury Code(s): N17.9 - ACUTE KIDNEY FAILURE, UNSPECIFIED Status: Acute (12) Hyponatremia Code(s): E87.1 - HYPO-OSMOLALITY AND HYPONATREMIA Status: Resolved (13) Severe protein-calorie malnutrition Code(s): E43 - UNSPECIFIED SEVERE PROTEIN-CALORIE MALNUTRITION Status: Acute (14) Septic shock Code(s): A41.9 - SEPSIS, UNSPECIFIED ORGANISM; R65.21 - SEVERE SEPSIS WITH SEPTIC SHOCK Status: Resolved <Darrell Burton - Last Filed: 02/13/18 14:51> Attending Addendum - Attending Addendum Date/Time: 02/13/18 1450 I personally evaluated the patient and discussed the management with Dr. Aguilar. I agree with and repeated the History, Examination, Assessment and Plan documented above with any addition or exceptions noted below. Will have to be transported by EMS, likely Friday or Friday. <Darrell Burton - Last Filed: 02/13/18 14:51>
[2018-02-13] MEDS: Naproxen 500 MG TAB PO SCH ×2 (08:04→21:06)
[2018-02-13] MEDS: Gabapentin 300 MG CAP PO SCH ×3 (08:04→21:04)
[2018-02-13] MEDS: risperiDONE 1 MG TAB PO SCH ×2 (08:05→21:04)
[2018-02-13] MEDS: Baclofen 10 MG TAB PO SCH ×3 (08:05→21:04)
[2018-02-13] MEDS: buPROPion 75 MG TAB PO SCH ×2 (08:05→21:03)
[2018-02-13] MEDS: Vancomycin HCl 1 GM in Premix Bag 1 BAG IVPB SCH (08:06)
[2018-02-13] MEDS: Sodium Hypochlorite 0.25% Solution 480 ML BOT TOP SCH (08:06)
[2018-02-13 08:32] LABS: Vancomycin, Trough 24.2 ug/mL
[2018-02-13] MEDS: Morphine 4 MG/ML VIAL SLOW IVP PRN (15:14)
[2018-02-13] MEDS ORDERED: HYDROcodone/Acetaminophen 5/325 mg Tablet PO PRN (19:39)
[2018-02-13] MEDS ORDERED: HYDROcodone/Acetaminophen 5/325 mg Tablet PO SCH (21:00)
[2018-02-13] MEDS: oxyCODONE ER 10 MG TAB PO SCH (21:04)
[2018-02-13] MEDS: Vancomycin HCl 750 MG in Sodium Chloride 0.9% 250 ML 250 ML IVPB SCH (21:06)
[2018-02-13] MEDS: HYDROcodone/Acetaminophen 5/325 mg Tablet PO PRN (23:15)
[2018-02-14] MEDS: Melatonin 3 MG TAB PO PRN (02:00)
--- NOTE | 2018-02-14 06:25 | PDOC.FM ---
- Subjective Subjective: Switched to Oxycontin pain control over night with prn Nocro. Pt reports continued pain but modest improvement as of this morning. No other complaints at this time. No signs/symptoms of systemic infection no fever/chills, no cp no palpitations no sob no cough - Objective MAR Reviewed: Yes Vital Signs & Weight: Vital Signs (12 hours) Temp Pulse Resp BP Pulse Ox 02/14/18 00:00 107 H 02/13/18 20:00 97.9 F 109 H 16 126/74 96 Weight Admit Weight 64.7 kg Weight 67.449 kg Most Recent Monitor Data Heart Rate from ECG 99 NIBP 123/84 NIBP BP-Mean 97 Respiration from ECG 16 SpO2 100 I&O: 02/12/18 02/13/18 02/14/18 06:59 06:59 06:59 Intake Total 3590 1020 720 Output Total 3000 3150 1350 Balance 686 -2019 -757 Result Diagrams: 02/09/18 12:00 02/09/18 12:00 <Bill Aguilar - Last Filed: 02/14/18 11:30> - Objective Vital Signs & Weight: Vital Signs (12 hours) Temp Pulse Resp BP Pulse Ox 02/14/18 08:00 96 02/14/18 07:49 98.1 F 98 16 108/73 96 02/14/18 06:00 106 H 02/14/18 00:00 107 H Weight Admit Weight 64.7 kg Weight 67.449 kg Most Recent Monitor Data Heart Rate from ECG 99 NIBP 123/84 NIBP BP-Mean 97 Respiration from ECG 16 SpO2 100 I&O: 02/13/18 02/14/18 02/15/18 06:59 06:59 06:59 Intake Total 1020 720 Output Total 3150 1350 Balance -4703 -288 Result Diagrams: 02/09/18 12:00 02/14/18 11:04 <Darrell Burton - Last Filed: 02/14/18 11:45> Phys Exam - Physical Examination appears sleepy this AM HEENT: moist MMs, sclera anicteric Neck: supple, full ROM Respiratory: no wheezing, clear to auscultation bilateral Cardiovascular: RRR, no significant murmur Gastrointestinal: soft, non-tender Musculoskeletal: no edema, pulses present decreased sensation and strength in Bilateral LEs Psychiatric: normal affect, A&O x 3 Skin: no rash, normal turgor <Bill Aguilar - Last Filed: 02/14/18 11:30> Dx/Plan (1) Decubitus ulcer, stage 4 Code(s): L89.94 - PRESSURE ULCER OF UNSPECIFIED SITE, STAGE 4 Status: Acute (2) Osteomyelitis Code(s): M86.9 - OSTEOMYELITIS, UNSPECIFIED Status: Acute Qualifiers: Osteomyelitis location: other site (3) Acute encephalopathy Code(s): G93.40 - ENCEPHALOPATHY, UNSPECIFIED Status: Resolved (4) Hypomagnesemia Code(s): E83.42 - HYPOMAGNESEMIA Status: Resolved (5) Septic shock Code(s): A41.9 - SEPSIS, UNSPECIFIED ORGANISM; R65.21 - SEVERE SEPSIS WITH SEPTIC SHOCK Status: Resolved - Plan Plan: Stage IV Decubitus Ulcers A- Bilateral ischial spine ulcers. Pt also has ulcer on L heel. wound care consulted. gen surg consulted, recommended continuing wound care, no surgical intervention required. P- continue pain control Oxycontin Q12hr and [place] 5 for breakthrough pain, morphine for wound changes. Will expect pain control to increase with time. - continue wound care Myositis/Cellulitis 2/2 Decubitus Ulcers A- Pt afebrile and doing well, ID consulted, appreciate recs P- Cont Vanc/Zosyn, switch to ertapenem and vanc on DC with end date of . PICC in place - Pt has placement at [facility] in [place] but we are awaiting arrangements for ride to LTAC for long-term IV abx. Likely Friday, possibly friday Septic shock, resolved A- 2/2 UTI. s/p epi and levophed gtt. UCx wasn't sent from initial urine, repeat showed NGTD. BCx no growth P- Continuing ABX for osteomyelitis Complicated UTI - On Vanc, Zosyn, this has likely resolved at this time. 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 However, neurology believes this is more likely due to West Nile Virus vs Transverse Myelitis. APS called from ED P- cont wound care and broad spectrum ABX - Neuro on board, appreciate recs - Pending ride to [place] at LTAC Encephalopathy, resolved A- Appears resolved. New areas of infarct on CT, but MRI showed nonspecific multifocal white matter abnormalities and CTA [place] was unremarkable and so was likely delirium vs psychosis. P- Continue risperdone. - Neurology has been consulted, appreciate recs Dispo: CM on board to help place patient in SNF for IV abx for 6 weeks as well as wound care. has placement at [facility] in [place] but we are awaiting arrangements for ride to LTAC. 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 - PERSONAL HISTORY OF DIS OF THE NERVOUS SYS AND SENSE ORGANS Status: Chronic (2) Paraplegia Code(s): G82.20 - PARAPLEGIA, UNSPECIFIED Status: Acute (3) Anemia Code(s): D64.9 - ANEMIA, UNSPECIFIED Status: Acute Qualifiers: Anemia type: unspecified type Qualified Code(s): D64.9 - Anemia, unspecified (4) Complicated urinary tract infection Code(s): N39.0 - URINARY TRACT INFECTION, SITE NOT SPECIFIED Status: Resolved (5) Colostomy in place Code(s): Z93.3 - COLOSTOMY STATUS Status: Chronic (6) Acute encephalopathy Code(s): G93.40 - ENCEPHALOPATHY, UNSPECIFIED Status: Resolved (7) Acute respiratory failure with hypoxia Code(s): J96.01 - ACUTE RESPIRATORY FAILURE WITH HYPOXIA Status: Resolved (8) Decubitus ulcer, stage 3 Code(s): L89.93 - PRESSURE ULCER OF UNSPECIFIED SITE, STAGE 3 Status: Acute (9) Stage IV decubitus ulcer Code(s): L89.94 - PRESSURE ULCER OF UNSPECIFIED SITE, STAGE 4 Status: Acute Qualifiers: Pressure injury location: sacral region Qualified Code(s): L89.154 - Pressure ulcer of sacral region, stage 4 (10) Hypomagnesemia Code(s): E83.42 - HYPOMAGNESEMIA Status: Resolved (11) Acute kidney injury Code(s): N17.9 - ACUTE KIDNEY FAILURE, UNSPECIFIED Status: Acute (12) Hyponatremia Code(s): E87.1 - HYPO-OSMOLALITY AND HYPONATREMIA Status: Resolved (13) Severe protein-calorie malnutrition Code(s): E43 - UNSPECIFIED SEVERE PROTEIN-CALORIE MALNUTRITION Status: Acute (14) Septic shock Code(s): A41.9 - SEPSIS, UNSPECIFIED ORGANISM; R65.21 - SEVERE SEPSIS WITH SEPTIC SHOCK Status: Resolved <Darrell Burton - Last Filed: 02/14/18 11:45> Attending Addendum - Attending Addendum Date/Time: 02/14/18 1145 I personally evaluated the patient and discussed the management with the team. I agree with and repeated the History, Examination, Assessment and Plan documented above with any addition or exceptions noted below. <Darrell Burton - Last Filed: 02/14/18 11:45>
[2018-02-14] MEDS: Baclofen 10 MG TAB PO SCH ×3 (08:37→20:34)
[2018-02-14] MEDS: buPROPion 75 MG TAB PO SCH ×2 (08:37→20:33)
[2018-02-14] MEDS: Naproxen 500 MG TAB PO SCH ×2 (08:38→20:33)
[2018-02-14] MEDS: oxyCODONE ER 10 MG TAB PO SCH ×2 (08:38→20:34)
[2018-02-14] MEDS: Gabapentin 300 MG CAP PO SCH ×3 (08:38→20:34)
[2018-02-14] MEDS: risperiDONE 1 MG TAB PO SCH ×2 (08:39→20:33)
[2018-02-14] MEDS: Vancomycin HCl 750 MG in Sodium Chloride 0.9% 250 ML 250 ML IVPB SCH ×2 (08:40→20:32)
[2018-02-14] MEDS: Sodium Hypochlorite 0.25% Solution 480 ML BOT TOP SCH (08:40)
[2018-02-14] MEDS: HYDROcodone/Acetaminophen 5/325 mg Tablet PO PRN ×2 (11:20→23:16)
[2018-02-14 11:33] LABS: Anion Gap 12 mmol/L (10-20); BUN (Urea Nitrogen) 25 mg/dL (8.9-20.6); Calc. Creatinine Clearance 138 mL/min (70-130); Calcium 10.1 mg/dL (7.8-10.44); Carbon Dioxide 28 mmol/L (22-29); Chloride 101 mmol/L (98-107); Estimated GFR-MDRD Greater than 90; Glucose 101 mg/dL (70-105); Potassium 4.4 mmol/L (3.5-5.1); Sodium 137 mmol/L (136-145)
[2018-02-14] MEDS ORDERED: Piperacillin/Tazobactam 3.375 GM in Sodium Chloride 0.9% 100 ML IVPB SCH (12:00)
[2018-02-14] MEDS: Piperacillin/Tazobactam 3.375 GM in Sodium Chloride 0.9% 100 ML IVPB SCH ×2 (14:19→20:33)
[2018-02-14] MEDS: Morphine 4 MG/ML VIAL SLOW IVP PRN (14:27)
[2018-02-14] MEDS ORDERED: Nystatin Powder 15 GM BOT TOP PRN (16:04)
[2018-02-15] MEDS: Piperacillin/Tazobactam 3.375 GM in Sodium Chloride 0.9% 100 ML IVPB SCH ×4 (01:41→21:01)
--- NOTE | 2018-02-15 06:35 | PDOC.FM ---
- Subjective Subjective: Pt feeling "ok" this morning though complaints of continued pain in decub ulcers. Pt reports it kept him awake most of the night last night. No other complaints at this time no fever/chills, no cp no palpitations, no sob - Objective MAR Reviewed: Yes Vital Signs & Weight: Vital Signs (12 hours) Temp Pulse Resp BP Pulse Ox 02/14/18 20:00 97.9 F 90 18 102/64 96 02/14/18 19:42 96 Weight Admit Weight 64.7 kg Weight 67.449 kg Most Recent Monitor Data Heart Rate from ECG 99 NIBP 123/84 NIBP BP-Mean 97 Respiration from ECG 16 SpO2 100 I&O: 02/13/18 02/14/18 02/15/18 06:59 06:59 06:59 Intake Total 0050 781 5552 Output Total 3150 1350 3300 Balance -2130 -630 110 Result Diagrams: 02/09/18 12:00 02/14/18 11:04 <Bill Aguilar - Last Filed: 02/15/18 07:27> - Objective Vital Signs & Weight: Vital Signs (12 hours) Temp Pulse Resp BP Pulse Ox 02/15/18 08:03 98.1 F 95 16 113/73 96 02/15/18 08:00 96 Weight Admit Weight 64.7 kg Weight 67.449 kg Most Recent Monitor Data Heart Rate from ECG 99 NIBP 123/84 NIBP BP-Mean 97 Respiration from ECG 16 SpO2 100 I&O: 02/14/18 02/15/18 02/16/18 06:59 06:59 06:59 Intake Total 720 3410 Output Total 1350 3300 Balance -630 110 Result Diagrams: 02/09/18 12:00 02/14/18 11:04 <Darrell Burton - Last Filed: 02/15/18 12:54> Phys Exam - Physical Examination Constitutional: NAD pt was sleeping on entry, on waking did not appear to be in distress HEENT: moist MMs, sclera anicteric Neck: no JVD, full ROM Respiratory: no wheezing, clear to auscultation bilateral Cardiovascular: RRR, no significant murmur Gastrointestinal: soft, non-tender Musculoskeletal: no edema, pulses present Decreased sensation in bilat LEs Psychiatric: normal affect, A&O x 3 Skin: normal turgor, cap refill <2 seconds <Bill Aguilar - Last Filed: 02/15/18 07:27> Dx/Plan (1) Decubitus ulcer, stage 4 Code(s): L89.94 - PRESSURE ULCER OF UNSPECIFIED SITE, STAGE 4 Status: Acute (2) Osteomyelitis Code(s): M86.9 - OSTEOMYELITIS, UNSPECIFIED Status: Acute Qualifiers: Osteomyelitis location: other site (3) Acute encephalopathy Code(s): G93.40 - ENCEPHALOPATHY, UNSPECIFIED Status: Resolved (4) Hypomagnesemia Code(s): E83.42 - HYPOMAGNESEMIA Status: Resolved (5) Septic shock Code(s): A41.9 - SEPSIS, UNSPECIFIED ORGANISM; R65.21 - SEVERE SEPSIS WITH SEPTIC SHOCK Status: Resolved - Plan Plan: Stage IV Decubitus Ulcers A- Bilateral ischial spine ulcers. Pt also has ulcer on L heel. wound care consulted. gen surg consulted, recommended continuing wound care, no surgical intervention required. P- continue pain control Oxycontin Q12hr and [place] 5 for breakthrough pain, morphine for wound changes. Will expect pain control to increase with time. -will discuss possibility of increasing frequency of norco 5 - continue wound care Myositis/Cellulitis 2/2 Decubitus Ulcers A- Pt afebrile and doing well, ID consulted, appreciate recs P- Cont Vanc/Zosyn, switch to ertapenem and vanc on DC with end date of . PICC in place - Pt has placement at [facility] [place] but we are awaiting arrangements for ride to LTAC for long-term IV abx. Likely Friday, possibly friday Septic shock, resolved A- 2/2 UTI. s/p epi and levophed gtt. UCx wasn't sent from initial urine, repeat showed NGTD. BCx no growth P- Continuing ABX for osteomyelitis Complicated UTI - On Vanc, Zosyn, this has likely resolved at this time. 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 However, neurology believes this is more likely due to West Nile Virus vs Transverse Myelitis. APS called from ED P- cont wound care and broad spectrum ABX - Neuro on board, appreciate recs - Pending ride to [place] at LTAC Encephalopathy, resolved A- Appears resolved. New areas of infarct on CT, but MRI showed nonspecific multifocal white matter abnormalities and CTA [place] was unremarkable and so was likely delirium vs psychosis. P- Continue risperdone. - Neurology has been consulted, appreciate recs Dispo: CM on board to help place patient in SNF for IV abx for 6 weeks as well as wound care. has placement at [facility] in [place] but we are awaiting arrangements for ride to LTAC. 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 - PERSONAL HISTORY OF DIS OF THE NERVOUS SYS AND SENSE ORGANS Status: Chronic (2) Paraplegia Code(s): G82.20 - PARAPLEGIA, UNSPECIFIED Status: Acute (3) Anemia Code(s): D64.9 - ANEMIA, UNSPECIFIED Status: Acute Qualifiers: Anemia type: unspecified type Qualified Code(s): D64.9 - Anemia, unspecified (4) Complicated urinary tract infection Code(s): N39.0 - URINARY TRACT INFECTION, SITE NOT SPECIFIED Status: Resolved (5) Colostomy in place Code(s): Z93.3 - COLOSTOMY STATUS Status: Chronic (6) Acute encephalopathy Code(s): G93.40 - ENCEPHALOPATHY, UNSPECIFIED Status: Resolved (7) Acute respiratory failure with hypoxia Code(s): J96.01 - ACUTE RESPIRATORY FAILURE WITH HYPOXIA Status: Resolved (8) Decubitus ulcer, stage 3 Code(s): L89.93 - PRESSURE ULCER OF UNSPECIFIED SITE, STAGE 3 Status: Acute (9) Stage IV decubitus ulcer Code(s): L89.94 - PRESSURE ULCER OF UNSPECIFIED SITE, STAGE 4 Status: Acute Qualifiers: Pressure injury location: sacral region Qualified Code(s): L89.154 - Pressure ulcer of sacral region, stage 4 (10) Hypomagnesemia Code(s): E83.42 - HYPOMAGNESEMIA Status: Resolved (11) Acute kidney injury Code(s): N17.9 - ACUTE KIDNEY FAILURE, UNSPECIFIED Status: Acute (12) Hyponatremia Code(s): E87.1 - HYPO-OSMOLALITY AND HYPONATREMIA Status: Resolved (13) Severe protein-calorie malnutrition Code(s): E43 - UNSPECIFIED SEVERE PROTEIN-CALORIE MALNUTRITION Status: Acute (14) Septic shock Code(s): A41.9 - SEPSIS, UNSPECIFIED ORGANISM; R65.21 - SEVERE SEPSIS WITH SEPTIC SHOCK Status: Resolved <Darrell Burton - Last Filed: 02/15/18 12:54> Attending Addendum - Attending Addendum Date/Time: 02/15/18 1232 I personally evaluated the patient and discussed the management with Dr. Aguilar. I agree with and repeated the History, Examination, Assessment and Plan documented above with any addition or exceptions noted below. Worse pain this AM. Will adjust norco. <Darrell Burton - Last Filed: 02/15/18 12:54>
[2018-02-15] MEDS: buPROPion 75 MG TAB PO SCH ×2 (08:18→21:03)
[2018-02-15] MEDS: Baclofen 10 MG TAB PO SCH ×3 (08:18→21:03)
[2018-02-15] MEDS: Naproxen 500 MG TAB PO SCH ×2 (08:18→21:03)
[2018-02-15] MEDS: Gabapentin 300 MG CAP PO SCH ×3 (08:18→21:03)
[2018-02-15] MEDS: oxyCODONE ER 10 MG TAB PO SCH ×2 (08:18→21:02)
[2018-02-15] MEDS: risperiDONE 1 MG TAB PO SCH ×2 (08:19→21:03)
[2018-02-15] MEDS: Sodium Hypochlorite 0.25% Solution 480 ML BOT TOP SCH (08:21)
[2018-02-15 08:27] LABS: Vancomycin, Trough 18.2 ug/mL
[2018-02-15] MEDS ORDERED: HYDROcodone/Acetaminophen 5/325 mg Tablet PO SCH (09:05)
[2018-02-15] MEDS: Vancomycin HCl 750 MG in Sodium Chloride 0.9% 250 ML 250 ML IVPB SCH ×2 (09:42→21:04)
[2018-02-15] MEDS: HYDROcodone/Acetaminophen 5/325 mg Tablet PO SCH ×2 (14:48→21:39)
[2018-02-16] MEDS: Piperacillin/Tazobactam 3.375 GM in Sodium Chloride 0.9% 100 ML IVPB SCH ×4 (02:00→21:07)
[2018-02-16] MEDS: HYDROcodone/Acetaminophen 5/325 mg Tablet PO SCH ×3 (05:11→21:09)
[2018-02-16 05:51] LABS: #Basophils 0.1 thou/uL (0.0-0.2); #Eosinphils 1.8 thou/uL (0.0-0.7); #Lymphocytes 1.8 thou/uL (1.20-3.40); #Monocytes 1.2 thou/uL (0.11-0.59); #Neutrophils 5.7 thou/uL (1.40-6.50); %Basophils 0.6 % (0.0-1.0); %Eosinophils 17.4 % (0.0-10.0); %Lymphocytes 16.8 % (21.0-51.0); %Monocytes 11.5 % (0.0-10.0); %Neutrophils 53.7 % (42.0-75.0); Hemoglobin 8.8 g/dL (14.0-18.0); Mean Corpuscular Hemoglobin 24.3 pg (27.0-31.0); Mean Platelet Volume 7.6 fL (7.4-10.4); Platelet Count 500 thou/uL (130-400); RBC Distribution Width 18.4 % (11.5-14.5); Red Blood Cell (RBC) Count 3.63 mill/uL (4.70-6.10); White Blood Cell (WBC) Count 10.6 thou/uL (4.8-10.8)
[2018-02-16 06:20] LABS: ALT (SGPT) 18 U/L (8-55); AST (SGOT) 15 U/L (5-34); Albumin 3.3 g/dL (3.5-5.0); Alkaline Phosphatase 73 U/L (40-150); Anion Gap 15 mmol/L (10-20); BUN (Urea Nitrogen) 18 mg/dL (8.9-20.6); Bilirubin, Total 0.2 mg/dL (0.2-1.2); Calc. Creatinine Clearance 112 mL/min (70-130); Calcium 9.5 mg/dL (7.8-10.44); Carbon Dioxide 24 mmol/L (22-29); Chloride 105 mmol/L (98-107); Estimated GFR-MDRD Greater than 90; Globulin 3.4 g/dL (2.4-3.5); Glucose 131 mg/dL (70-105); Protein, Total 6.7 g/dL (6.0-8.3); Sodium 140 mmol/L (136-145)
--- NOTE | 2018-02-16 06:28 | PDOC.FM ---
- Subjective Subjective: Pt doing well this AM, sitting in wheelchair. Pt reports good pain control and no complaints at this time. no fever/chills, no cp no palpitations, no sob no cough - Objective MAR Reviewed: Yes Vital Signs & Weight: Vital Signs (12 hours) Temp Pulse Resp BP Pulse Ox 02/15/18 20:00 98.0 F 98 18 108/65 95 02/15/18 19:41 95 Weight Admit Weight 64.7 kg Weight 67.449 kg Most Recent Monitor Data Heart Rate from ECG 99 NIBP 123/84 NIBP BP-Mean 97 Respiration from ECG 16 SpO2 100 I&O: 02/14/18 02/15/18 02/16/18 06:59 06:59 06:59 Intake Total 720 3410 3710 Output Total 1350 3300 4710 Balance -630 110 -1000 Result Diagrams: 02/16/18 04:58 02/16/18 05:30 <Bill Aguilar - Last Filed: 02/16/18 08:26> - Objective Vital Signs & Weight: Vital Signs (12 hours) Temp Pulse Resp BP BP Pulse Ox 02/16/18 11:55 97.5 F L 111 H 18 110/72 96 02/16/18 08:13 98.0 F 112 H 18 120/77 97 02/16/18 08:00 97 Weight Admit Weight 64.7 kg Weight 67.449 kg Most Recent Monitor Data Heart Rate from ECG 99 NIBP 123/84 NIBP BP-Mean 97 Respiration from ECG 16 SpO2 100 I&O: 02/15/18 02/16/18 02/17/18 06:59 06:59 06:59 Intake Total 3410 3710 Output Total 3300 4710 Balance 110 -1000 Result Diagrams: 02/16/18 04:58 02/16/18 05:30 <Danna Terrell - Last Filed: 02/16/18 16:34> Phys Exam - Physical Examination Constitutional: NAD HEENT: moist MMs, sclera anicteric Neck: no JVD, full ROM Respiratory: no wheezing, clear to auscultation bilateral Cardiovascular: RRR, no significant murmur Gastrointestinal: soft, non-tender colostomy bag in place Musculoskeletal: no edema, pulses present bilateral lower limb marked weakness and decreased sensation Psychiatric: normal affect, A&O x 3 Skin: no rash, normal turgor <Bill Aguilar - Last Filed: 02/16/18 08:26> Dx/Plan (1) Decubitus ulcer, stage 4 Code(s): L89.94 - PRESSURE ULCER OF UNSPECIFIED SITE, STAGE 4 Status: Acute (2) Osteomyelitis Code(s): M86.9 - OSTEOMYELITIS, UNSPECIFIED Status: Acute Qualifiers: Osteomyelitis location: other site (3) Acute encephalopathy Code(s): G93.40 - ENCEPHALOPATHY, UNSPECIFIED Status: Resolved (4) Hypomagnesemia Code(s): E83.42 - HYPOMAGNESEMIA Status: Resolved (5) Septic shock Code(s): A41.9 - SEPSIS, UNSPECIFIED ORGANISM; R65.21 - SEVERE SEPSIS WITH SEPTIC SHOCK Status: Resolved - Plan Plan: Stage IV Decubitus Ulcers A- Bilateral ischial spine ulcers. Pt also has ulcer on L heel. wound care consulted. gen surg consulted, recommended continuing wound care, no surgical intervention required. P- continue pain control Oxycontin Q12hr and [place] 5 for breakthrough pain, morphine for wound changes. - continue wound care Myositis/Cellulitis 2/2 Decubitus Ulcers A- Pt afebrile and doing well, ID consulted, appreciate recs P- Cont Vanc/Zosyn, switch to ertapenem and vanc on DC with end date of . PICC in place - Pt has placement at [facility] in [place] but we are awaiting arrangements for ride to LTAC for long-term IV abx. Likely Friday, possibly today Septic shock, resolved A- 2/2 UTI. s/p epi and levophed gtt. UCx wasn't sent from initial urine, repeat showed NGTD. BCx no growth P- Continuing ABX for osteomyelitis Complicated UTI - On Vanc, Zosyn, this has likely resolved at this time. 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 However, neurology believes this is more likely due to West Nile Virus vs Transverse Myelitis. APS called from ED P- cont wound care and broad spectrum ABX - Neuro on board, appreciate recs - Pending ride to [place] at LTAC Encephalopathy, resolved A- Resolved. New areas of infarct on CT, but MRI showed nonspecific multifocal white matter abnormalities and CTA [place] was unremarkable and so was likely delirium vs psychosis. P- Continue risperdone. - Neurology has been consulted, appreciate recs Dispo: CM on board to help place patient in SNF for IV abx for 6 weeks as well as wound care. has placement at [facility] in [place] but we are awaiting arrangements for ride to LTAC. Probable discharge today or Friday per EMS needs for preparation <Bill Aguilar - Last Filed: 02/16/18 08:26> Attending Addendum - Attending Addendum Date/Time: 02/16/18 2663 I personally evaluated the patient and discussed the management with Dr. Aguilar. I agree with the History, Examination, Assessment and Plan documented above with any addition or exceptions noted below. The patient is waiting on ambulance transfer to be arrange out of state for LTAC. He will continue IV antibiotics. May discharge when transport is arranged. <Danna Terrell - Last Filed: 02/16/18 16:34>
[2018-02-16] MEDS: Baclofen 10 MG TAB PO SCH ×3 (08:44→21:07)
[2018-02-16] MEDS: Naproxen 500 MG TAB PO SCH ×2 (08:44→21:08)
[2018-02-16] MEDS: buPROPion 75 MG TAB PO SCH ×2 (08:44→21:08)
[2018-02-16] MEDS: Gabapentin 300 MG CAP PO SCH ×3 (08:44→21:08)
[2018-02-16] MEDS: oxyCODONE ER 10 MG TAB PO SCH ×2 (08:45→21:08)
[2018-02-16] MEDS: risperiDONE 1 MG TAB PO SCH ×2 (08:46→21:08)
[2018-02-16] MEDS: Vancomycin HCl 750 MG in Sodium Chloride 0.9% 250 ML 250 ML IVPB SCH ×2 (09:28→21:09)
[2018-02-16] MEDS: Sodium Hypochlorite 0.25% Solution 480 ML BOT TOP SCH (09:28)
[2018-02-16] MEDS: Morphine 4 MG/ML VIAL SLOW IVP PRN (15:48)
--- NOTE | 2018-02-17 02:01 | DIS-2 ---
DATE OF ADMISSION: 01/22/2018 DATE OF DISCHARGE: 02/17/2018 RESIDENT: Dr. Bill Aguilar. ADMITTING ATTENDING: Dr. Darrell Burton. DISCHARGE ATTENDING: Dr. Danna Terrell. CONSULTATIONS: Pulmonology, General Surgery, Neurology, Infectious Disease, Urology. PT, OT, and Wound Care. PROCEDURES: 1. On 01/22/2018, chest x-ray, impression: No evidence of acute cardiopulmonary process. 2. On 01/22/2018, abdomen and pelvis CT, impression: Very mild bilateral hydroureteronephrosis with obstructing cause evident, this may be related to chronic reflux. No stones are visible. 3. On 01/22/2018, brain CT, impression: There is no evidence of acute intracranial hemorrhage or infarct. Ventricles appear normal in size, shape, and position. There is no mass effect or shift in midline structures. The visualized paranasal sinuses remain well aerated. 4. On 01/22/2018, chest x-ray, impression: Internal jugular catheter is good in radiographic position, increasing pulmonary vascular congestion. 5. On 01/24/2018, brain CT, impression: Multifocal progressive deep white matter hypodensities indicating areas of recent acute ischemia. Recommend brain MRI as follow up for further evaluation. 6. On 01/25/2018, forearm x-ray, impression: Uncomplicated internal fixation hardware, remote fractures involving the radius are noted. No acute fractures. 7. On 01/25/2018, brain MRI, impression: Multifocal white matter signal abnormalities, nonspecific. This could be on the basis of demyelinating process , vasculitis, vasculopathy, or infectious inflammatory etiologies. Correlation with lumbar puncture may usefull for further analysis. 8. CT [place] angio with contrast, impression: Unremarkable intracranial CTA. 9. Pelvis MRI on 01/29/2018, impression: Huge bilateral posterior decubitus ulcers extending to the right and left ischium and somewhat thinned and deformed bilateral ischial pubic rami with some abnormal signal evident for acute and/or chronic osteomyelitis. No evidence for drainable abscess, extensive bilateral subcutaneous edema, and/or cellulitis. Very diffuse extensive abnormal signal were then essentially off the pelvic musculature and upper thigh musculature as well as some of the superficial fascial edema and possibly minimal intramuscular fascial edema, evidence for extensive nonspecific myositis with some associated superficial vasculitis, but no evidence for necrotizing fasciitis or intramuscular abscess or an intramuscular necrosis. 10. On 01/30/2018, interventional procedure, peripheral insertion of central catheter. 11. On 01/23/2018, central catheter placement. PRIMARY DIAGNOSES: Septic shock secondary to urinary tract infection and cellulitis with bilateral ischial decubitus ulcers. 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 DISCHARGE MEDICATIONS: 1. Baclofen 10 mg p.o. t.i.d. 2. Wellbutrin 150 mg p.o. b.i.d. 3. Gabapentin 900 mg p.o. t.i.d. 4. [place] 5/325 mg 1 tab p.o. q.8 hours p.r.n. 5. Melatonin 3 mg p.o. at bedtime p.r.n. 6. Vancomycin IV- pharmacy to dose for adequate vanc trough continue through 7. Morphine sulfate 4 mg slow IV push q.6 hours for dressing changes. 8. Naproxen 500 mg p.o. b.i.d. 9. OxyContin 10 mg p.o. q.12 hours. 10. Pantoprazole 40 mg p.o. daily. 11. Ertapenem 1 gram IV daily. continue through 03/13/2018 12. Risperidone 1 mg p.o. b.i.d. DISCONTINUED MEDICATIONS: Zosyn 3.375 grams q.i.d. 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 On presentation, patient was septic. Nolan catheter was pulled and pus was observed. Patient was unstable and central line placed as well as intubated. Patient was started on broad spectrum antibiotics per Infectious Disease recommendations as patient recovered. Patient was eventually extubated and had encephalitis. Patient was noted to be delirious versus psychotic. Head CT was done, which showed concern for infarctions. MRI was done, which showed nonspecific white matter signal abnormalities. Patient's psychosis resolved with Risperdal and patient slowly returned to baseline neurological status. Throughout hospital stay, PICC line was placed for long-term IV antibiotic use per ID recommendations. Throughout hospital stay, massive bilateral sacral and a heel decubitus ulcer were cared for with wound care and associated cellulitis and myositis and osteomyelitis were treated with vancomycin and Zosyn per ID recommendations with plans to change to vancomycin and ertapenem on discharge. Pain management changed throughout the patient's long hospital stay, though he was eventually controlled with 10 mg OxyContin q.12 hours, [place] 5 q.8 hours p.r.n. and with p.r.n. morphine for dressing changes. Additionally in patient's hospital stay, Urology was consulted as patient had difficulty with self catheterizations. Urology did not recommend suprapubic catheter at this time, but recommended followup and reevaluation for suprapubic catheter after transfer to [place] with patient's standing urologist. On Urology recommendations, an indwelling Nolan catheter was placed , which patient tolerated well. Otherwise, hospital stay was significant for a stable anemia that was evaluated with iron studies consistent for anemia of chronic disease. Additionally, Neurology was consulted for patient's paraplegia , which believed it was more likely due to West Nile virus versus transverse myelitis as supposed to Guillain-Lackawaxen. Once patient's status was deemed stable and plans were made for continued IV antibiotics through 03/13, patient had arrangements made for transfer to LTAC in [place] for continued wound care, physical therapy, and IV antibiotics, vancomycin, and ertapenem through standing PICC line. DISPOSITION: Stable. DISCHARGE INSTRUCTIONS: 1. Location: To long-term acute care facility in [place]. 2. Diet: Regular. 3. Activity: As tolerated. 4. Follow up per management of LTAC physician. JENNIFER
[2018-02-17] MEDS: Piperacillin/Tazobactam 3.375 GM in Sodium Chloride 0.9% 100 ML IVPB SCH ×2 (02:40→07:56)
[2018-02-17] MEDS: HYDROcodone/Acetaminophen 5/325 mg Tablet PO SCH (05:52)
--- NOTE | 2018-02-17 06:20 | PDOC.FM ---
- Subjective Subjective: Pt feeling well this AM, reports good rest overnight and excellent controll of pain. Pt excited for transfer to LTAC. No complaints at this time. no fever/chills, no cp no palpitations, no sob no cough - Objective MAR Reviewed: Yes Vital Signs & Weight: Vital Signs (12 hours) Temp Pulse Resp BP Pulse Ox 02/16/18 20:22 96 02/16/18 20:00 98.1 F 100 18 108/66 96 Weight Admit Weight 64.7 kg Weight 67.449 kg Most Recent Monitor Data Heart Rate from ECG 99 NIBP 123/84 NIBP BP-Mean 97 Respiration from ECG 16 SpO2 100 I&O: 02/15/18 02/16/18 02/17/18 06:59 06:59 06:59 Intake Total 3410 3710 1910 Output Total 3300 4710 2250 Balance 110 -1000 -340 Result Diagrams: 02/16/18 04:58 02/16/18 05:30 <Bill Aguilar - Last Filed: 02/17/18 08:23> - Objective Vital Signs & Weight: Vital Signs (12 hours) Temp Pulse Resp BP Pulse Ox 02/17/18 08:00 97.4 F L 99 18 99/65 94 L Weight Admit Weight 64.7 kg Weight 67.449 kg Most Recent Monitor Data Heart Rate from ECG 99 NIBP 123/84 NIBP BP-Mean 97 Respiration from ECG 16 SpO2 100 I&O: 02/16/18 02/17/18 02/18/18 06:59 06:59 06:59 Intake Total 3710 1910 Output Total 4710 2250 Balance -1000 -340 Result Diagrams: 02/16/18 04:58 02/16/18 05:30 <Danna Terrell - Last Filed: 02/17/18 18:49> Phys Exam - Physical Examination Constitutional: NAD HEENT: moist MMs, sclera anicteric Neck: no JVD, full ROM Respiratory: no wheezing, clear to auscultation bilateral Cardiovascular: RRR, no significant murmur Gastrointestinal: soft, non-tender Musculoskeletal: no edema, pulses present paraplegic (chronic) Psychiatric: normal affect, A&O x 3 Skin: normal turgor, cap refill <2 seconds <Bill Aguilar - Last Filed: 02/17/18 08:23> Dx/Plan (1) Decubitus ulcer, stage 4 Code(s): L89.94 - PRESSURE ULCER OF UNSPECIFIED SITE, STAGE 4 Status: Acute (2) Osteomyelitis Code(s): M86.9 - OSTEOMYELITIS, UNSPECIFIED Status: Acute Qualifiers: Osteomyelitis location: other site (3) Acute encephalopathy Code(s): G93.40 - ENCEPHALOPATHY, UNSPECIFIED Status: Resolved (4) Hypomagnesemia Code(s): E83.42 - HYPOMAGNESEMIA Status: Resolved (5) Septic shock Code(s): A41.9 - SEPSIS, UNSPECIFIED ORGANISM; R65.21 - SEVERE SEPSIS WITH SEPTIC SHOCK Status: Resolved - Plan Plan: Stage IV Decubitus Ulcers A- Bilateral ischial spine ulcers. Pt also has ulcer on L heel. wound care consulted. gen surg consulted, recommended continuing wound care, no surgical intervention required. P- continue pain control Oxycontin Q12hr and [place] 5 for breakthrough pain, morphine for wound changes. - continue wound care Myositis/Cellulitis 2/2 Decubitus Ulcers A- Pt afebrile and doing well, ID consulted, appreciate recs P- Cont Vanc/Zosyn, switch to ertapenem and vanc on DC with end date of . PICC in place - Pt has placement at [facility] in [place], [place] today as arrangements for transport are accomplished Septic shock, resolved A- 2/2 UTI. s/p epi and levophed gtt. UCx wasn't sent from initial urine, repeat showed NGTD. BCx no growth P- Continuing ABX for osteomyelitis Complicated UTI - On Vanc, Zosyn, this has likely resolved at this time. 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 However, neurology believes this is more likely due to West Nile Virus vs Transverse Myelitis. APS called from ED P- cont wound care and broad spectrum ABX - Neuro on board, appreciate recs - Ride to [place] at LTAC today Encephalopathy, resolved A- Resolved. New areas of infarct on CT, but MRI showed nonspecific multifocal white matter abnormalities and CTA saxman of [place] was unremarkable and so was likely delirium vs psychosis. P- Continue risperdone. - Neurology has been consulted, appreciate recs Dispo: Discharge to [facility] in [place] today. <Bill Aguilar - Last Filed: 02/17/18 08:23> Attending Addendum - Attending Addendum Date/Time: 02/17/18 4618 I personally evaluated the patient and discussed the management with Dr. Aguilar. I agree with the History, Examination, Assessment and Plan documented above with any addition or exceptions noted below. Patient is doing well and will discharge to [place] [facility]. <Danna Terrell - Last Filed: 02/17/18 18:49>
[2018-02-17 08:32] VITALS: BP 99/65; TEMP 97.4
[2018-02-17] MEDS: Vancomycin HCl 750 MG in Sodium Chloride 0.9% 250 ML 250 ML IVPB SCH (08:35)
[2018-02-17] MEDS: oxyCODONE ER 10 MG TAB PO SCH (08:40)
[2018-02-17] MEDS: Gabapentin 300 MG CAP PO SCH (08:41)
[2018-02-17] MEDS: risperiDONE 1 MG TAB PO SCH (08:41)
[2018-02-17] MEDS: Baclofen 10 MG TAB PO SCH (08:41)
[2018-02-17] MEDS: Naproxen 500 MG TAB PO SCH (08:41)
[2018-02-17] MEDS: buPROPion 75 MG TAB PO SCH (08:41)
--- NOTE | 2018-02-18 17:56 | PQF ---
ANTHONY WELCHTYLER [id number] [id number]- [id number] CLINICAL DOCUMENTATION CLARIFICATION FORM: POST DISCHARGE DATE: 02/18/18 ATTN: Dr. Burton Please exercise your independent, professional judgment in responding to the clarification form. Clinical indicators are provided on the bottom of this form for your review Please check appropriate box(s): x I (concur) with the Wound Care findings of: Pressure Ulcer Right Knee, Unstageable; Pressure Ulcer Right Heel Stage II; Pressure Ulcer Left Heel Unstageable; Pressure Ulcer Right Ischia Stage 3; Pressure Ulcer Left Ischial Stage IV, Pressure Ulcer Right Sacrum Stage 4, Pressure Ulcer Left Knee Unstageable I concur with wound care findings. All ulcers present on arrival. I don't agree with wound care findings above: [ ] Pressure Ulcer: (Stage I: Erythema; Stage II: Partial thickness; Stage III : Full thickness; Stage IV: Necrosis to muscle/bone) [ ] Location: POA: [ ] Yes [ ] No [ ] Unable to determine Stage (I to IV): (Left Right Bilateral N/A ) [ ] Location: POA: [ ] Yes [ ] No [ ] Unable to determine Stage (I to IV): (Left Right Bilateral N/A ) [ ] Location: POA: [ ] Yes [ ] No [ ] Unable to determine Stage (I to IV): (Left Right Bilateral N/A ) [ ] Gangrene present [ ] Yes [ ] ischemic gangrene [ ] gas gangrene [ ] No [ ] No pressure ulcer diagnosis [ ] Deep tissue injury [ ] Other diagnosis [ ] Unable to determine In addition, please specify: Present on Admission (POA): [ ] Yes [ ] No [ ] Unable to determine For continuity of documentation, please document condition throughout progress notes and discharge summary. Thank You. CLINICAL INDICATORS - SIGNS / SYMPTOMS / LABS Documentation of multiple pressure ulcers throughout chart Documentations of Stage IV Pressure Ulcer of sacrum with maggots on admission RISK FACTORS: Immobility/ bedridden/ debility Paralysis/ Paraplegia Malnutrition TREATMENTS: Wound care consult Specialty mattress IV antibiotics Infectious disease consult Insertion of PICC line (This form is maintained as a part of the permanent medical record) 2014 [employer], [employer]. All Rights Reserved [email or web address] [phone] MTDD
--- NOTE | 2018-02-18 18:00 | PQF ---
ANTHONY WELCH TYLER NICOLE [id number] [id number]- 4433 [id number] CLINICAL DOCUMENTATION CLARIFICATION FORM: POST DISCHARGE DATE: 02/18/18 ATTN: Dr. Nicole Please exercise your independent, professional judgment in responding to the clarification form. Clinical indicators are provided on the bottom of this form for your review Please check appropriate box(s): [ x] UTI please specify if due to or related to (as applicable): [ x ] Indwelling catheter [ ] Self-catheterization [ ] Suprapubic catheter [ ] Unable to determine etiology UTI Site: [ ] Kidney [ ] Ureter [ ] Bladder [ ] Urethra [ ] Unable to determine Specify Organism (if known): [ ] Unknown organism [ ] Contaminated urine specimen without UTI [ ] Other diagnosis [ ] Unable to determine In addition, please specify: Present on Admission (POA): [ x ] Yes [ ] No [ ] Unable to determine For continuity of documentation, please document condition throughout progress notes and discharge summary. Thank You. CLINICAL INDICATORS - SIGNS / SYMPTOMS / LABS Positive urinalysis Documentation: UTI Documentation of urinary catheter RISK FACTORS History of neurogenic bladder History self-cath/indwelling catheter Debility TREATMENT: Antibiotics IVF Nolan cath removed / changed (This form is maintained as a part of the permanent medical record) 2014 [employer], [employer]. All Rights Reserved [email or web address] [phone] MTDDonita
--- NOTE | 2018-02-18 18:04 | PQF ---
ANTHONY WELCH TYLER NICOLE [id number] [id number]- 4433 [id number] CLINICAL DOCUMENTATION CLARIFICATION FORM: POST DISCHARGE Addendum to original discharge summary date: ____ Late entry note date: __ DATE: 02/18/18 ATTN: Dr. Nicole Please exercise your independent, professional judgment in responding to the clarification form. Clinical indicators are provided on the bottom of this form for your review Please check appropriate box(s): [ x ] Encephalopathy: Type: [x ] Acute [ ] Subacute [ ] Chronic Etiology: [ ] Hypertensive [ x ] Metabolic [ ] Toxic [ ] Hepatic with Coma [ ] Hepatic w/o Coma [ ] Hypoxic [x ] Septic [ ] Drug induced: [ ] Unspecified [ ] in the setting of underlying dementia [ ] Other (please specify) [ ] Transient Alteration of Awareness [ ] Other diagnosis [ ] Unable to determine In addition, please specify: Present on Admission (POA): [ x ] Yes [ ] No [ ] Unable to determine For continuity of documentation, please document condition throughout progress notes and discharge summary. Thank You. CLINICAL INDICATORS - SIGNS / SYMPTOMS / LABS Altered mental status Metabolic / electrolyte abnormality Sepsis Severe malnutrition documentation of psychosis vs delirium vs hallucinations documentation of encephalopathy RISK FACTORS Infectious process Septic Shock Osteomyelitis Stage IV PU multiple pressure ulcers TREATMENTS: Neuro checks / neurology consult Correction of electrolyte imbalances IV antibiotics IV fluids CT Head (This form is maintained as a part of the permanent medical record) 2014 [employer]. All Rights Reserved [email or web address] [phone] MTDDonita
== END 2018-02-17 09:30 | DRG 698 ==
LOC: ERS 15:17 → CCU 18:15 → T4-A 01-24 09:26 → CCU 01-24 20:38 → 2SW 01-26 07:35 → 2SE 01-26 19:07 → T4-B 01-30 21:50
PROVIDERS: ADMIT Emergency Medicine; ATTEND Emergency Medicine
PROC: 02HV33Z Insertion of Infusion Device into Superior Vena Cava, Percutaneous Approach (ICD-10-PCS; principal; 2018-01-22)
PROC: 0BH17EZ Insertion of Endotracheal Airway into Trachea, Via Natural or Artificial Opening (ICD-10-PCS; 2018-01-22)
PROC: 5A1935Z Respiratory Ventilation, Less than 24 Consecutive Hours (ICD-10-PCS; 2018-01-22)
PROC: 02HV33Z Insertion of Infusion Device into Superior Vena Cava, Percutaneous Approach (ICD-10-PCS; 2018-01-30)
PROC: B5181ZA Fluoroscopy of Superior Vena Cava using Low Osmolar Contrast, Guidance (ICD-10-PCS; 2018-01-30)
DX: T83.511A Infection and inflammatory reaction due to indwelling urethral catheter, initial encounter (principal); A41.9 Sepsis, unspecified organism; L89.893 Pressure ulcer of other site, stage 3; L89.154 Pressure ulcer of sacral region, stage 4; J96.01 Acute respiratory failure with hypoxia; E43 Unspecified severe protein-calorie malnutrition; R65.21 Severe sepsis with septic shock; G93.41 Metabolic encephalopathy; G82.20 Paraplegia, unspecified; N17.9 Acute kidney failure, unspecified; E87.1 Hypo-osmolality and hyponatremia; N13.1 Hydronephrosis with ureteral stricture, not elsewhere classified; L03.317 Cellulitis of buttock; M86.18 Other acute osteomyelitis, other site; N39.0 Urinary tract infection, site not specified; Z87.19 Personal history of other diseases of the digestive system; Z68.23 Body mass index [BMI] 23.0-23.9, adult; Z93.3 Colostomy status; B87.9 Myiasis, unspecified; D64.9 Anemia, unspecified; E83.42 Hypomagnesemia; F17.210 Nicotine dependence, cigarettes, uncomplicated; Z99.3 Dependence on wheelchair; M79.2 Neuralgia and neuritis, unspecified; F32.9 Major depressive disorder, single episode, unspecified; N31.9 Neuromuscular dysfunction of bladder, unspecified; Z96.0 Presence of urogenital implants; E61.1 Iron deficiency; G47.33 Obstructive sleep apnea (adult) (pediatric); D63.8 Anemia in other chronic diseases classified elsewhere; F12.10 Cannabis abuse, uncomplicated; E83.51 Hypocalcemia; E87.6 Hypokalemia; L25.9 Unspecified contact dermatitis, unspecified cause; L89.890 Pressure ulcer of other site, unstageable; L89.612 Pressure ulcer of right heel, stage 2; L89.620 Pressure ulcer of left heel, unstageable
CPT/HCPCS: 31500; 36415; 36556; 36569; 51702; 70450; 70496; 70553; 71045; 72197; 74176; 80048; 80053; 80164; 80202; 80306; 80307; 81001; 81003; 81015; 82330; 82553; 82728; 82803; 82805; 83540; 83550; 83605; 83690; 83735; 84100; 84443; 84484; 85007; 85025; 85027; 85610; 85652; 85730; 86038; 86140; 86225; 87040; 87086; 90471; 90686; 93005; 93010; 94002; 94003; 94760; 96365; 96367; 96368; 96375; 96376; A9579; C1751; G0008; G8978-GP-CK; G8978-GP-CN; G8979-GP-CJ; G8979-GP-CK; G8981-GP-CI; G8982-GP-CH; G8987-GO-CL; G8988-GO-CJ; J0171; J0461; J1630; J1644; J1885; J2250; J2270; J2310; J2543; J3010; J3370; J3475; J3480; J7050; S0028